=== PATIENT | female | born 1940 | race Caucasian/White ===

== ENCOUNTER 2018-06-23 08:49 | Inpatient (IN) | payer MEDICARE, SELFPAY ==
[2018-06-23] VITALS (24 sets, daily range): BP systolic 120–241; BP diastolic 72–102; PULSE 69–103; RESP 13–26; TEMP 36.4–37.6; O2SAT 92–98
--- NOTE | 2018-06-23 08:57 | NUR.NOTE ---
Nursing Note: Pt. is alert, speaks softy but appropriately. MD Maciel is at the bedside currently. Pt's daughters state she complained of epigastric pain the past couple of days.
--- NOTE | 2018-06-23 09:06 | W.ED.GENAD ---
Discharge Plan Disposition Patient Disposition: [facility] INPATIENT Condition: Improving Discharge Details Chief Complaint: GenMedical Clinical Impression: Porcelain gallbladder Reason For Visit: BENITO Primary Care Provider: None,None ED Provider: Ortiz Maciel Home Meds and New Rx's Prescriptions: No Action No Known Home Meds RF: 0 Medical Decision Making 78-year-old female presents from home with history of weeks of poor appetite and weight loss, now with nausea and vomiting over days time, increased weakness and probable near syncope last night with fall out of bed and found on floor by family this morning. No medical care for 40 yrs, since of last child. She arrives with a pulse of 102, afebrile, blood pressure 158/76. She is quite thin in appearance, her aorta is palpable and optically tender in her abdomen. Differential diagnosis includes occult cancer, bowel obstruction, gastroenteritis, ACS, dehydration or electrolyte abnormality. Must rule out aneurysmal aortic changes. Patient IV access established, given fluid bolus, antiemetic, referred for EKG, laboratory testing and CT images. She appears dehydrated with a BUN of 36, creatinine 2.1, lipase normal, LFTs abnormal with AST 67, ALT 124, total bilirubin 1.2, troponin 0.1 rechecked at approx 0.5 CT of the head does not reveal any acute findings. The abdomen reveals mild opacities in the lower lobes of the lungs which may represent atelectasis or pneumonia. There is gallstones in the gallbladder and gallbladder wall calcification. The descending colon and rectosigmoid bowel wall is thickened consistent with colitis. A limited abdominal ultrasound was obtained: This reveals a question of porcelain gallbladder and cholelithiasis. The patient states she does not want invasive procedures nor transfer including if she has a heart attack. Seen in the ER by Dr Damico and Dr De La Cruz, pt to be admitted to Dr De La Cruz for further management. Lab Data Lab results reviewed: Yes I reviewed the patient's lab results. Laboratory Results - last 24 hr 06/23/18 06/23/18 06/23/18 09:00 09:30 09:30 WBC 11.01 H RBC 5.77 H Hgb 16.2 H Hct 46.1 H MCV 79.9 L MCH 28.1 MCHC 35.1 RDW 14.9 H Plt Count 345 MPV 10.3 Immature Gran % 0.5 Neutrophils % 84.9 Lymphocytes % 6.4 Monocytes % 7.9 Eosinophils % 0.2 Basophils % 0.1 Absolute Neutrophils 9.35 H Absolute Lymphocytes 0.70 L Absolute Monocytes 0.87 H Absolute Eosinophils 0.02 Absolute Basophils 0.01 Sodium 134 L Potassium 3.4 L Chloride 95 L Carbon Dioxide 21.3 Anion Gap 17.7 H BUN 36 H Creatinine 2.12 H Estimated GFR/1.73 m2 22.53 Glucose 193 H Calcium 9.7 Magnesium 2.2 Total Bilirubin 1.2 H AST 67 H ALT 124 H Alkaline Phosphatase 197 H Creatine Kinase Troponin I 0.17 H Total Protein 8.7 H Albumin 4.0 Lipase 100 06/23/18 09:30 WBC RBC Hgb Hct MCV MCH MCHC RDW Plt Count MPV Immature Gran % Neutrophils % Lymphocytes % Monocytes % Eosinophils % Basophils % Absolute Neutrophils Absolute Lymphocytes Absolute Monocytes Absolute Eosinophils Absolute Basophils Sodium Potassium Chloride Carbon Dioxide Anion Gap BUN Creatinine Estimated GFR/1.73 m2 Glucose Calcium Magnesium Total Bilirubin AST ALT Alkaline Phosphatase Creatine Kinase 74 Troponin I Total Protein Albumin Lipase ECG Data Attestation: I personally reviewed and interpreted this ECG (s) as follows: Prior ECG tracings: not available for review Interpretation: Normal sinus rhythm with a rate of 99, the MD interval is 104, QRS is narrow but with probable LVH with repolarization changes primarily in the lateral leads, no ST segment elevation HPI General Mode of arrival: EMS. Date/Time Provider Initiated Documentation: 06/23/18 08:53. Limitations to Documentation: no limitations. Information obtained by: patient and family. History of Present Illness 78 year old F presents to the emergency department with the chief complaint of Abdominal pain and vomiting, described as moderate, Quality is described as dull and constant, Patient reports no radiation. Patient started experiencing this day(s) and it has been constant. No relieving factors improve symptom(s), Eating worsens symptoms . Patient notes loss of appetite, malaise, nausea/vomiting and weakness; denies headaches. Patient did receive the following treatments prior to arrival, none HPI Narrative: 70-year-old female, no medical care since the of her last child 40 years ago. States she has had 2 months of decreased appetite and a 10 pound weight loss. Now presents with 3 days of nausea, vomiting, generalized weakness. She rolled out of bed last night and was able to get off off the floor and was found by family. She denies striking her head and has not had a headache. She has persistent nonradiating epigastric pain and nausea. Her only regular medicine is frequent Aleve Related Data Home Medications Medication Instructions Recorded Confirmed Unknown [No Known Home Meds] 06/23/18 06/23/18 Allergies Allergy/AdvReac Type Severity Reaction Status Date / Time No Known Allergies Allergy Unverified 06/23/18 08:58 General Stated Complaint: GenMedical TAMMY: 3 Review of Systems Review of Systems 8 systems reviewed and otherwise negative. Patient reports diarrhea initially 3-4 days ago, no stool for 2 days [facility] Social History Smoking/Tobacco Use Status: Never Exam Narrative Exam Narrative: GEN: awake, alert, oriented 3. Pleasant, well groomed, interactive, thin. HEAD: Normocephalic, atraumatic ENT: Mucous membranes dry, oropharynx unremarkable, External ear exam unremarkable EYES: PERRL, EOMI NECK: Full ROM, no REBECCA, no menigismus CHEST/RESP: Nontender, clear to auscultation bilateral, no wheeze/rhonchi/rales CARDIOVASCULAR: RRR, no murmur, rub zoe. 2+ Rad pulse bilateral ABDOMEN: Soft, minimally tender in her epigastrium. The aorta is palpable. +Bowel sounds EXT: Full ROM, no edema, no rash Neuro: Grossly normal neurologic exam, conversant, interactive. Psych: Speech fluent, thoughts congruent, affect normal Course Vital Signs Temperature 36.4 C L 06/23/18 08:48 Pulse 102 H 06/23/18 08:48 Respiratory Rate 16 06/23/18 08:48 Blood Pressure 158/76 H 06/23/18 08:48 Pulse Oximetry 98 06/23/18 08:48 Temperature 36.4 C L 06/23/18 08:48 Temperature Source Temporal Artery Scan 06/23/18 08:48 Pulse 102 H 06/23/18 08:48 Respiratory Rate 16 06/23/18 08:48 Respiratory Effort 06/23/18 08:56 Blood Pressure 158/76 H 06/23/18 08:48 Pulse Oximetry 98 06/23/18 08:48 Oxygen Delivery Method Room Air 06/23/18 08:48 Oxygen Flow Rate 0 06/23/18 08:48 Pain Level 0 06/23/18 08:48
--- NOTE | 2018-06-23 09:10 | ED.GENADUL_ITS ---
Discharge Plan Disposition Patient Disposition: [facility] INPATIENT Condition: Improving Discharge Details Chief Complaint: GenMedical Clinical Impression: Porcelain gallbladder Reason For Visit: BENITO Primary Care Provider: None,None ED Provider: Ortiz Maciel Home Meds and New Rx's Prescriptions: No Action No Known Home Meds RF: 0 Medical Decision Making 78-year-old female presents from home with history of weeks of poor appetite and weight loss, now with nausea and vomiting over days time, increased weakness and probable near syncope last night with fall out of bed and found on floor by family this morning. No medical care for 40 yrs, since of last child. She arrives with a pulse of 102, afebrile, blood pressure 158/76. She is quite thin in appearance, her aorta is palpable and optically tender in her abdomen. Differential diagnosis includes occult cancer, bowel obstruction, gastroenteritis, ACS, dehydration or electrolyte abnormality. Must rule out aneurysmal aortic changes. Patient IV access established, given fluid bolus, antiemetic, referred for EKG, laboratory testing and CT images. She appears dehydrated with a BUN of 36, creatinine 2.1, lipase normal, LFTs abnormal with AST 67, ALT 124, total bilirubin 1.2, troponin 0.1 rechecked at approx 0.5 CT of the head does not reveal any acute findings. The abdomen reveals mild opacities in the lower lobes of the lungs which may represent atelectasis or pneumonia. There is gallstones in the gallbladder and gallbladder wall calcification. The descending colon and rectosigmoid bowel wall is thickened consistent with colitis. A limited abdominal ultrasound was obtained: This reveals a question of porcelain gallbladder and cholelithiasis. The patient states she does not want invasive procedures nor transfer including if she has a heart attack. Seen in the ER by Dr Damico and Dr De La Cruz, pt to be admitted to Dr De La Cruz for further management. Lab Data Lab results reviewed: Yes I reviewed the patient's lab results. Laboratory Results - last 24 hr 06/23/18 06/23/18 06/23/18 09:00 09:30 09:30 WBC 11.01 H RBC 5.77 H Hgb 16.2 H Hct 46.1 H MCV 79.9 L MCH 28.1 MCHC 35.1 RDW 14.9 H Plt Count 345 MPV 10.3 Immature Gran % 0.5 Neutrophils % 84.9 Lymphocytes % 6.4 Monocytes % 7.9 Eosinophils % 0.2 Basophils % 0.1 Absolute Neutrophils 9.35 H Absolute Lymphocytes 0.70 L Absolute Monocytes 0.87 H Absolute Eosinophils 0.02 Absolute Basophils 0.01 Sodium 134 L Potassium 3.4 L Chloride 95 L Carbon Dioxide 21.3 Anion Gap 17.7 H BUN 36 H Creatinine 2.12 H Estimated GFR/1.73 m2 22.53 Glucose 193 H Calcium 9.7 Magnesium 2.2 Total Bilirubin 1.2 H AST 67 H ALT 124 H Alkaline Phosphatase 197 H Creatine Kinase Troponin I 0.17 H Total Protein 8.7 H Albumin 4.0 Lipase 100 06/23/18 09:30 WBC RBC Hgb Hct MCV MCH MCHC RDW Plt Count MPV Immature Gran % Neutrophils % Lymphocytes % Monocytes % Eosinophils % Basophils % Absolute Neutrophils Absolute Lymphocytes Absolute Monocytes Absolute Eosinophils Absolute Basophils Sodium Potassium Chloride Carbon Dioxide Anion Gap BUN Creatinine Estimated GFR/1.73 m2 Glucose Calcium Magnesium Total Bilirubin AST ALT Alkaline Phosphatase Creatine Kinase 74 Troponin I Total Protein Albumin Lipase ECG Data Attestation: I personally reviewed and interpreted this ECG (s) as follows: Prior ECG tracings: not available for review Interpretation: Normal sinus rhythm with a rate of 99, the [place] interval is 104, QRS is narrow but with probable LVH with repolarization changes primarily in the lateral leads, no ST segment elevation HPI General Mode of arrival: EMS . Date/Time Provider Initiated Documentation: 06/23/18 08:53 . Limitations to Documentation: no limitations . Information obtained by: patient and family . History of Present Illness 78 year old F presents to the emergency department with the chief complaint of Abdominal pain and vomiting, described as moderate, Quality is described as dull and constant, Patient reports no radiation. Patient started experiencing this day(s) and it has been constant. No relieving factors improve symptom(s), Eating worsens symptoms . Patient notes loss of appetite, malaise, nausea/vomiting and weakness; denies headaches. Patient did receive the following treatments prior to arrival, none HPI Narrative: 70-year-old female, no medical care since the of her last child 40 years ago. States she has had 2 months of decreased appetite and a 10 pound weight loss. Now presents with 3 days of nausea, vomiting, generalized weakness. She rolled out of bed last night and was able to get off off the floor and was found by family. She denies striking her head and has not had a headache. She has persistent nonradiating epigastric pain and nausea. Her only regular medicine is frequent Aleve Related Data Home Medications Medication Instructions Recorded Confirmed Unknown [No Known Home Meds] 06/23/18 06/23/18 Allergies Allergy/AdvReac Type Severity Reaction Status Date / Time No Known Allergies Allergy Unverified 06/23/18 08:58 General Stated Complaint: GenMedical TAMMY: 3 Review of Systems Review of Systems 8 systems reviewed and otherwise negative. Patient reports diarrhea initially 3-4 days ago, no stool for 2 days [facility] Social History Smoking/Tobacco Use Status: Never Exam Narrative Exam Narrative: GEN: awake, alert, oriented 3. Pleasant, well groomed, interactive, thin. HEAD: Normocephalic, atraumatic ENT: Mucous membranes dry, oropharynx unremarkable, External ear exam unremarkable EYES: PERRL, EOMI NECK: Full ROM, no REBECCA, no menigismus CHEST/RESP: Nontender, clear to auscultation bilateral, no wheeze/rhonchi/rales CARDIOVASCULAR: RRR, no murmur, rub zoe. 2+ Rad pulse bilateral ABDOMEN: Soft, minimally tender in her epigastrium. The aorta is palpable. +Bowel sounds EXT: Full ROM, no edema, no rash Neuro: Grossly normal neurologic exam, conversant, interactive. Psych: Speech fluent, thoughts congruent, affect normal Course Vital Signs Temperature 36.4 C L 06/23/18 08:48 Pulse 102 H 06/23/18 08:48 Respiratory Rate 16 06/23/18 08:48 Blood Pressure 158/76 H 06/23/18 08:48 Pulse Oximetry 98 06/23/18 08:48 Temperature 36.4 C L 06/23/18 08:48 Temperature Source Temporal Artery Scan 06/23/18 08:48 Pulse 102 H 06/23/18 08:48 Respiratory Rate 16 06/23/18 08:48 Respiratory Effort 06/23/18 08:56 Blood Pressure 158/76 H 06/23/18 08:48 Pulse Oximetry 98 06/23/18 08:48 Oxygen Delivery Method Room Air 06/23/18 08:48 Oxygen Flow Rate 0 06/23/18 08:48 Pain Level 0 06/23/18 08:48
[2018-06-23] MEDS: Normal Saline 1,000 ML 125 ML IV ×2 (09:16→17:20)
[2018-06-23] MEDS: Ondansetron 4 MG/2 ML VIAL IVP (09:16)
[2018-06-23 09:49] LABS: Abs Immature Grans 0.05 k/cumm (0.0-0.09); Absolute Basophil Count 0.01 k/cumm (0.0-0.2); Absolute Eosinophil Count 0.02 k/cumm (0.0-0.7); Absolute Monocyte Count 0.87 k/cumm (0.11-0.7); Basophils % 0.1; Eosinophils % 0.2; HCT 46.1 % (36.0-46.0); HGB 16.2 g/dL (12.0-15.5); Immature Grans % 0.5; Lymphocytes % 6.4; Mean Corp. HGB Concentration 35.1 g/dL (32.0-36.0); Mean Corpuscular Hemoglobin 28.1 pg (27.0-33.0); Mean Corpuscular Volume 79.9 fL (80-95); Mean Platelet Volume 10.3 fL (8.0-11.0); Monocytes % 7.9; Neutrophils % 84.9; Platelet Count 345 x1000/uL (130-400); RBC 5.77 m/cumm (4.00-5.20); RBC Distribution Width 14.9 % (11.7-14.6); White Blood Cell Count 11.01 k/cumm (4.4-10.8)
[2018-06-23 09:51] LABS: Absolute Neutrophil Count 9.35 k/cumm (1.2-6.7)
[2018-06-23 10:03] LABS: Lipase 100 U/L (73-393); Magnesium 2.2 mg/dL (1.8-2.4)
[2018-06-23 10:15] LABS: Troponin I 0.17 ng/mL (0.00-0.06)
[2018-06-23 10:25] LABS: ALT 124 U/L (12-78); AST 67 U/L (15-37); Alkaline Phosphatase 197 U/L (46-116); Anion Gap 17.7 mmol/L (3-11); BUN 36 mg/dL (7-18); Bilirubin, Total 1.2 mg/dL (0.2-1.0); CO2 21.3 mmol/L (21.0-32.0); CREATININE 2.12 mg/dL (0.55-1.02); Calcium 9.7 mg/dL (8.5-10.1); Chloride 95 mmol/L (98-107); Estimated GFR 22.53 (mL/min/1.73m2); Glucose 193 mg/dL (70-100); Potassium 3.4 mmol/L (3.5-5.1); Sodium 134 mmol/L (136-145); Total Protein 8.7 g/dL (6.4-8.2)
[2018-06-23 10:26] LABS: Creatine Kinase 74 U/L (26-192)
--- NOTE | 2018-06-23 11:05 | DI.CT_ITS ---
SYMPTOMS/DIAGNOSIS: EPIGASTRIC PAIN, PALPABLE AORTA, VOMITING NONCONTRAST CT OF THE ABDOMEN AND PELVIS: A noncontrast exam was performed. Coronary artery calcification and aortic annular calcifications are seen. The is a small pericardial effusion and tiny bilateral pleural effusions. There is minimal basilar dependent changes. Stones are noted in the gallbladder. There is some peripheral calcification at the fundus of the gallbladder. No mass is visible. There is mild patient motion on the upper images of the abdomen. No gross liver lesions are identified. The spleen is normal in size. There is a small nodule in the left adrenal. There is motion in this area. The kidneys are unremarkable. No pancreatic mass or inflammation is visible. The bladder, uterus and ovaries are unremarkable. There is no bowel dilatation or inflammatory change. A nonobstructing stone is seen at the upper pole of the right kidney. The aorta shows calcification and is normal in diameter. Scoliosis and degenerative changes are noted in the spine. IMPRESSION: Cholelithiasis. Wall calcification at the fundus of the gallbladder. No evidence of biliary dilatation or acute cholecystitis.
--- NOTE | 2018-06-23 11:05 | DI.COMBO_ITS ---
SYMPTOM/DIAGNOSIS: GENERALIZED WEAKNESS, NAUSEA, WT LOSS, NEAR SYNCOPE, EPIGASTRIC PAIN, PALPABLE AORTA, VOMITING, F/U ABNL GB ON CT NONCONTRAST HEAD CT: No prior comparison exams are available. There is mild to moderate atrophy. There is patchy low density in the white matter consistent with chronic microvascular ischemia. No acute infarct, hemorrhage or mass is identified. There is no evidence of skull fracture. The sinuses and mastoid air cells appear clear where visualized. IMPRESSION: No acute abnormality.
--- NOTE | 2018-06-23 11:50 | DI.VRAD_ITS ---
EXAM: CT Abdomen and Pelvis Without Contrast EXAM DATE/TIME: 06/23/2018 10:58 AM CLINICAL HISTORY: 78 years old, female; Pain and signs and symptoms; Vomiting; Abdominal pain; Epigastric; Patient HX: Epigastric pain, palpable aorta, vomiting at home TECHNIQUE: Axial computed tomography images of the abdomen and pelvis without contrast. All CT scans at this facility use at least one of these dose optimization techniques: automated exposure control; mA and/or kV adjustment per patient size (includes targeted exams where dose is matched to clinical indication); or iterative reconstruction. Coronal and sagittal reformatted images were created and reviewed. COMPARISON: No relevant prior studies available. FINDINGS: Lower thorax: Coronary artery calcifications may indicate coronary artery disease. There is calcification of the aortic valve annulus. There is calcification of the mitral valve annulus. Small bilateral pleural effusions. Small pericardial effusion. Mild opacities in the lower lobes may represent atelectasis or pneumonia. ABDOMEN: Liver: Hepatomegaly 17 cm Gallbladder and bile ducts: Gallstones in the gallbladder. Gallbladder wall calcification may indicate gallbladder malignancy. Recommend further evaluation. Pancreas: Pancreatic atrophy Spleen: Normal. No splenomegaly. Adrenals: Left adrenal nodule 15 x 13 mm and 22 Hounsfield units level. Kidneys and ureters: Nonobstructing right renal calculus Stomach and bowel: Low-attenuation bowel wall thickening along the descending colon and rectosigmoid consistent with colitis. Differential diagnosis includes decompressed bowel. The cecum is on a long mesentery and sits in the posterior aspect of the pelvis Appendix: No evidence of appendicitis. PELVIS: Bladder: See Stomach And Bowel Finding. Reproductive: Unremarkable as visualized. ABDOMEN and PELVIS: Intraperitoneal space: Normal. No free air. No significant fluid collection. Bones/joints: Scoliosis Soft tissues: Unremarkable. Vasculature: No aortic aneurysm Lymph nodes: Normal. No enlarged lymph nodes. IMPRESSION: 1. Low-attenuation bowel wall thickening along the descending colon and rectosigmoid consistent with colitis. Differential diagnosis includes decompressed bowel. 2. Small bilateral pleural effusions. 3. Mild opacities in the lower lobes may represent atelectasis or pneumonia. 4. Gallstones in the gallbladder. Gallbladder wall calcification may indicate gallbladder malignancy. Recommend further evaluation. 5. Left adrenal nodule 15 x 13 mm and 22 Hounsfield units level. 6. No aortic aneurysm Dictated and Authenticated by: William Aguilera MD. Ordering:ALYSHA Alcantar MD
--- NOTE | 2018-06-23 11:52 | DI.VRAD_ITS ---
EXAM: CT Head Without Contrast EXAM DATE/TIME: 06/23/2018 11:05 AM CLINICAL HISTORY: 78 years old, female; Signs and symptoms; Other: General weakness, nausea; Patient HX: Gen weakness, nausea, weight loss, near syncope TECHNIQUE: Axial computed tomography images of the head/brain without contrast. All CT scans at this facility use at least one of these dose optimization techniques: automated exposure control; mA and/or kV adjustment per patient size (includes targeted exams where dose is matched to clinical indication); or iterative reconstruction. Coronal and sagittal reformatted images were created and reviewed. COMPARISON: No relevant prior studies available. FINDINGS: Brain: No acute intracranial hemorrhage. There is mild diffuse heterogeneity of the white matter attenuation, consistent with chronic white matter ischemic changes. Mild cerebral atrophy Ventricles: Normal. No ventriculomegaly. Bones/joints: Normal. No acute fracture. Sinuses: Normal as visualized. No acute sinusitis. Mastoid air cells: Normal as visualized. No mastoid effusion. Soft tissues: Normal. IMPRESSION: No acute intracranial hemorrhage. Dictated and Authenticated by: William Aguilera MD. Ordering:ALYSHA Alcantar MD
--- NOTE | 2018-06-23 11:53 | DI.US_ITS ---
SYMPTOMS/DIAGNOSIS: SEAMUS GB ON CT, WT LOSS RIGHT UPPER QUADRANT ULTRASOUND: Mobile stones are noted in the gallbladder. There is calcification faintly visualized in the fundus of the gallbladder as well as a question of adenomyomatosis. No mass is visible. There is dilatation of the common bile duct. Three stones are noted in the common bile duct. The duct is dilated to 11 mm. No intrahepatic biliary dilatation is seen. There is no pericholecystic fluid. The pancreas is obscured by bowel gas. IMPRESSION: Cholelithiasis. Three stones are noted in the common bile duct causing mild dilatation.
[2018-06-23 12:12] LABS: Troponin I 0.54 ng/mL (0.00-0.06)
--- NOTE | 2018-06-23 13:22 | DI.VRAD_ITS ---
Addendum created by William Aguilera MD on 06/23/2018 1:30:44 PM EST THIS REPORT CONTAINS FINDINGS THAT MAY BE CRITICAL TO PATIENT CARE. The findings were verbally communicated via telephone conference with ASHLEY MONAE at 1:30 PM EST on 06/23/2018. The findings were acknowledged and understood. Initial report created on 06/23/2018 1:22:05 PM EST EXAM: US Abdomen Limited, Right Upper Quadrant EXAM DATE/TIME: 06/23/2018 11:55 AM CLINICAL HISTORY: 78 years old, female; Signs and symptoms; Other: Ruq pain; Abnormal gb on CT; 10 lb weight loss in 1 month TECHNIQUE: Real-time ultrasound of the abdomen with image documentation. Examination was focused on the right upper quadrant. COMPARISON: CT Private^ROUTINE ABDOMEN PELVIS WITHOUT (Adult) 06/23/2018 10:53 AM FINDINGS: Liver: No mass identified Gallbladder: Mobile gallstones in the gallbladder. Gallbladder wall 2 mm Calcification in the wall of the gallbladder as demonstrated on CT. Rule out gallbladder carcinoma. Common bile duct: Choledocholithiasis: 3 gallstones in the common bile duct. Largest 6 mm. Common hepatic duct measures 10.6 mm. Common bile duct measures 5 mm. Pancreas: The pancreas is poorly-visualized due to overlying bowel gas. Right kidney: Normal. No mass. No hydronephrosis. IMPRESSION: 1. Choledocholithiasis: 3 gallstones in the common bile duct. Largest 6 mm. Common hepatic duct measures 10.6 mm. 2. Mobile gallstones in the gallbladder. 3. Calcification in the wall of the gallbladder as demonstrated on CT. Rule out gallbladder carcinoma. Dictated and Authenticated by: William Aguilera MD. Ordering:ALYSHA Alcantar MD
[2018-06-23 13:29] LABS: Bilirubin Negative (Negative); Blood Trace-lysed (Negative); Clarity Clear; Glucose 250 mg/dL (Negative); Ketones Negative (Negative); Leukocyte Esterase Negative (Negative); Nitrite Negative (Negative); Specific Gravity 1.025 (1.005-1.025)
[2018-06-23 13:42] LABS: Bacteria Rare HPF (Negative); C & S Indicated? No; Casts Negative LPF (Negative); Crystals Negative HPF (Negative); Epithelial Cells Negative HPF (Negative); Mucus Negative (Negative); Other Cells Negative (Negative); RBC 0-2 (0-2); WBC 0-2 HPF (0-5)
[2018-06-23] MEDS: ACETAMINOPHEN 1,000 MG/100 ML BTL 400 MG IVPB ×2 (16:01→21:33)
--- NOTE | 2018-06-23 16:15 | HPE_ITS ---
Date of service: 06/23/18 Time of Service: 16:11 Assessment and Plan (1) Right upper quadrant abdominal pain of unknown etiology: Current visit: Yes Status: Acute Repeat labs in am, cholecystectomy, for chronic cholecystitis, once cardiac cleared (2) Elevated troponin: Current visit: Yes Status: Acute Trending Troponin's, echo tomorrow. (3) STANLEY (acute kidney injury): Current visit: Yes Status: Acute Rehydrate, recheck labs, (4) Hyperglycemia: Current visit: Yes Status: Acute Start insulin therapy if glucose remains elevated. (5) Choledocholithiasis: Current visit: Yes Status: Acute Started Zosyn for cholangitis prophylaxis, MRCP tomorrow, talk with GI in regards to timing ERCP History of Present Illness Chief Complaint: Right upper Quadrant abdominal pain Narrative: 78-year-old female presenting to the emergency room with right upper quadrant pain, with associated nausea, vomiting, and weakness. Her current episode of symptoms started Friday, but she has had similar symptoms for the past 8 weeks starting around 23 April. Her symptoms in April with right upper quadrant pain with malaise, nausea, vomiting, and diarrhea. The diarrhea is reported as a loose foul-smelling stools. She woke up this morning and could not get out of bed due to weakness. An ambulance was called, and she transported to the ER. Work-up in the ER demonstrated an slightly elevated troponin, acute kidney injury, cholelithiasis with choledocholithiasis. Review of Systems Constitutional Reports anorexia, Denies chills, Denies difficulty sleeping, Denies fever(s), Reports malaise, Reports weakness and Reports weight loss Eyes Denies blurry vision, Denies diplopia and Denies loss of vision ENT Denies dysphagia, Denies vertigo, Denies dizziness, Denies hearing loss, Denies hoarseness, Denies epistaxis, Denies tinnitus and Denies sore throat Cardiovascular Denies chest pain with activity, Denies syncope, Denies edema, Denies irregular heart rhythm, Denies leg edema and Denies dyspnea on exertion Respiratory Denies cough, Reports pain on inspiration, Denies dyspnea on exertion, Denies stridor and Denies wheezing Gastrointestinal Denies melena, Denies bloating, Denies hematochezia, Denies dysphagia, Denies early satiety, Denies dyspepsia, Denies heartburn, Reports loose stools, Reports nausea and Reports vomiting Genitourinary Denies urinary frequency, Denies urinary incontinence and Denies urinary hesitancy Musculoskeletal Denies back pain, Denies myalgias, Denies arthralgias and Denies joint swelling Integumentary/Breasts Denies pruritus, Denies unusual bruising and Denies jaundice Neurologic Denies confusion, Denies vertigo, Denies dizziness, Denies syncope, Denies loss of vision and Reports weakness Psychiatric Denies anxiety, Denies confusion, Denies difficulty concentrating, Denies irritability, Denies mood swings and Denies panic attacks Hematologic/Lymphatic Denies easy bleeding and Denies easy bruising Allergic/Immunologic Denies wheezing PFSH Surgical History History of bilateral tubal ligation (Acute) Social History caregiver/support person: Yes (Family checks in regularly) housing: house number of children: 6 Smoking/Tobacco Use Status: Never alcohol intake: never substance use type: does not use History History 6 Para 6 Hx # Term Pregnancies Multiple births Hx # Pregnancies Ectopic pregnancies AB induced Hx Number of Living Children 6 AB spontaneous Meds Home Medications Medication Instructions Recorded Confirmed Type Unknown [No Known Home Meds] 06/23/18 06/23/18 History Allergies Allergy/AdvReac Type Severity Reaction Status Date / Time No Known Allergies Allergy Unverified 06/23/18 08:58 Exam Const General: cooperative, no acute distress, well groomed and frail appearing Nutritional Appearance: average body habitus and thin Orientation: alert, awake and oriented x3 HENMT Head: normal to inspection, atraumatic and abrasion Ears: hearing grossly normal bilaterally General nose exam: external nose normal Face and sinus: normal facial exam Mouth: oral mucosa abnormal (dry,vazquez) Teeth and gingiva: edentulous Throat: posterior oropharynx normal Eyes General: appearance normal, both eyes and all related structures Periorbital: periorbital findings normal Eyelids: eyelids normal Conjunctivae: conjunctivae normal Sclera: sclerae normal Pupils: PERRL EOM: EOM intact bilaterally Neck Neck: normal visual inspection, full ROM, trachea midline and supple Chest Chest: normal inspection of the chest Resp Effort & Inspection: normal respiratory effort, able to speak in complete sentences and not labored Auscultation: clear to auscultation bilaterally Cardio Jugular venous pressure: no JVD Rate: regular rate Rhythm: regular rhythm Heart Sounds: S1 normal and S2 normal GI Inspection: non-distended Palpation: soft, no hernias and tender in the RUQ and Elaine's sign positive (positive) Rectal Exam - female: deferred Abdomen image: 1. Pain Skin General skin exam: no rashes or lesions noted Hair: general thinning Neuro General: moves all extremities, no focal motor deficits and CN's II-XI intact bilaterally Extrem General: full ROM and normal capillary refill Psych Appearance: grossly normal Thought Content: normal Judgment: judgment good Results Imaging Abdomen CT scan report/results: image reviewed CT scan - pelvis: image reviewed US - pelvic: image reviewed Imaging Studies: EXAM: CT Abdomen and Pelvis Without Contrast EXAM DATE/TIME: 06/23/2018 10:58 AM CLINICAL HISTORY: 78 years old, female; Pain and signs and symptoms; Vomiting; Abdominal pain; Epigastric; Patient HX: Epigastric pain, palpable aorta, vomiting at home TECHNIQUE: Axial computed tomography images of the abdomen and pelvis without contrast. All CT scans at this facility use at least one of these dose optimization techniques: automated exposure control; mA and/or kV adjustment per patient size (includes targeted exams where dose is matched to clinical indication); or iterative reconstruction. Coronal and sagittal reformatted images were created and reviewed. COMPARISON: No relevant prior studies available. FINDINGS: Lower thorax: Coronary artery calcifications may indicate coronary artery disease. There is calcification of the aortic valve annulus. There is calcification of the mitral valve annulus. Small bilateral pleural effusions. Small pericardial effusion. Mild opacities in the lower lobes may represent atelectasis or pneumonia. ABDOMEN: Liver: Hepatomegaly 17 cm Gallbladder and bile ducts: Gallstones in the gallbladder. Gallbladder wall calcification may indicate gallbladder malignancy. Recommend further evaluation. Pancreas: Pancreatic atrophy Spleen: Normal. No splenomegaly. Adrenals: Left adrenal nodule 15 x 13 mm and 22 Hounsfield units level. Kidneys and ureters: Nonobstructing right renal calculus Stomach and bowel: Low-attenuation bowel wall thickening along the descending colon and rectosigmoid consistent with colitis. Differential diagnosis includes decompressed bowel. The cecum is on a long mesentery and sits in the posterior aspect of the pelvis Appendix: No evidence of appendicitis. PELVIS: Bladder: See Stomach And Bowel Finding. Reproductive: Unremarkable as visualized. ABDOMEN and PELVIS: Intraperitoneal space: Normal. No free air. No significant fluid collection. Bones/joints: Scoliosis Soft tissues: Unremarkable. Vasculature: No aortic aneurysm Lymph nodes: Normal. No enlarged lymph nodes. IMPRESSION: 1. Low-attenuation bowel wall thickening along the descending colon and rectosigmoid consistent with colitis. Differential diagnosis includes decompressed bowel. 2. Small bilateral pleural effusions. 3. Mild opacities in the lower lobes may represent atelectasis or pneumonia. 4. Gallstones in the gallbladder. Gallbladder wall calcification may indicate gallbladder malignancy. Recommend further evaluation. 5. Left adrenal nodule 15 x 13 mm and 22 Hounsfield units level. 6. No aortic aneurysm EXAM: US Abdomen Limited, Right Upper Quadrant EXAM DATE/TIME: 06/23/2018 11:55 AM CLINICAL HISTORY: 78 years old, female; Signs and symptoms; Other: Ruq pain; Abnormal gb on CT; 10 lb weight loss in 1 month TECHNIQUE: Real-time ultrasound of the abdomen with image documentation. Examination was focused on the right upper quadrant. COMPARISON: CT Private^ROUTINE ABDOMEN PELVIS WITHOUT (Adult) 06/23/2018 10:53 AM FINDINGS: Liver: No mass identified Gallbladder: Mobile gallstones in the gallbladder. Gallbladder wall 2 mm Calcification in the wall of the gallbladder as demonstrated on CT. Rule out gallbladder carcinoma. Common bile duct: Choledocholithiasis: 3 gallstones in the common bile duct. Largest 6 mm. Common hepatic duct measures 10.6 mm. Common bile duct measures 5 mm. Pancreas: The pancreas is poorly-visualized due to overlying bowel gas. Right kidney: Normal. No mass. No hydronephrosis. IMPRESSION: 1. Choledocholithiasis: 3 gallstones in the common bile duct. Largest 6 mm. Common hepatic duct measures 10.6 mm. 2. Mobile gallstones in the gallbladder. 3. Calcification in the wall of the gallbladder as demonstrated on CT. Rule out gallbladder carcinoma. Labs : 06/23/18 09:30 06/23/18 09:30 Laboratory Results - last 24 hr 06/23/18 06/23/18 06/23/18 09:00 09:30 09:30 WBC 11.01 H RBC 5.77 H Hgb 16.2 H Hct 46.1 H MCV 79.9 L MCH 28.1 MCHC 35.1 RDW 14.9 H Plt Count 345 MPV 10.3 Immature Gran % 0.5 Neutrophils % 84.9 Lymphocytes % 6.4 Monocytes % 7.9 Eosinophils % 0.2 Basophils % 0.1 Absolute Neutrophils 9.35 H Absolute Lymphocytes 0.70 L Absolute Monocytes 0.87 H Absolute Eosinophils 0.02 Absolute Basophils 0.01 Sodium 134 L Potassium 3.4 L Chloride 95 L Carbon Dioxide 21.3 Anion Gap 17.7 H BUN 36 H Creatinine 2.12 H Estimated GFR/1.73 m2 22.53 Glucose 193 H Calcium 9.7 Magnesium 2.2 Total Bilirubin 1.2 H AST 67 H ALT 124 H Alkaline Phosphatase 197 H Creatine Kinase Troponin I 0.17 H Total Protein 8.7 H Albumin 4.0 Lipase 100 Urine Color Urine Clarity Urine pH Ur Specific [place] Urine Protein Urine Ketones Urine Blood Urine Nitrite Urine Bilirubin Urine Urobilinogen Ur Leukocyte Esterase Urine RBC Urine WBC Ur Epithelial Cells Urine Crystals Urine Bacteria Urine Casts Urine Mucus Urine Other Ur Culture Indicated? Urine Glucose 06/23/18 06/23/18 06/23/18 09:30 11:40 13:18 WBC RBC Hgb Hct MCV MCH MCHC RDW Plt Count MPV Immature Gran % Neutrophils % Lymphocytes % Monocytes % Eosinophils % Basophils % Absolute Neutrophils Absolute Lymphocytes Absolute Monocytes Absolute Eosinophils Absolute Basophils Sodium Potassium Chloride Carbon Dioxide Anion Gap BUN Creatinine Estimated GFR/1.73 m2 Glucose Calcium Magnesium Total Bilirubin AST ALT Alkaline Phosphatase Creatine Kinase 74 Troponin I 0.54 H Total Protein Albumin Lipase Urine Color Yellow Urine Clarity Clear Urine pH 7.0 Ur Specific [place] 1.025 Urine Protein >=300 H Urine Ketones Negative Urine Blood Trace-lysed H Urine Nitrite Negative Urine Bilirubin Negative Urine Urobilinogen 1.0 H Ur Leukocyte Esterase Negative Urine RBC 0-2 Urine WBC 0-2 Ur Epithelial Cells Negative Urine Crystals Negative Urine Bacteria Rare Urine Casts Negative Urine Mucus Negative Urine Other Negative Ur Culture Indicated? No Urine Glucose 250 H Last Vital Signs Temp 37.6 C H 06/23/18 15:15 Pulse 69 06/23/18 15:15 Resp 18 06/23/18 15:15 BP 160/84 H 06/23/18 15:15 Pulse Ox 95 06/23/18 15:15
[2018-06-23] MEDS: PIPERACILLIN/TAZO 2.25 GM in Normal Saline 50 ML IVPB ×2 (17:13→21:58)
[2018-06-23 17:26] LABS: Troponin I 0.92 ng/mL (0.00-0.06)
[2018-06-23 18:39] LABS: PTT Activated 23.4 sec (21.0-31.4)
[2018-06-23 21:21] LABS: Troponin I 0.84 ng/mL (0.00-0.06)
[2018-06-23] MEDS: hydrALAZINE 10 MG TAB PO (22:33)
[2018-06-23] MEDS: Labetalol 100 MG TAB PO (22:33)
[2018-06-24] VITALS (13 sets, daily range): BP systolic 133–230; BP diastolic 64–91; PULSE 58–104; RESP 16–19; TEMP 36.4–37.1; O2SAT 96–98
[2018-06-24] MEDS: Normal Saline 1,000 ML 125 ML IV ×2 (01:12→19:29)
[2018-06-24] MEDS: ACETAMINOPHEN 1,000 MG/100 ML BTL 400 MG IVPB ×4 (03:59→21:54)
[2018-06-24] MEDS: PIPERACILLIN/TAZO 2.25 GM in Normal Saline 50 ML IVPB ×4 (04:24→22:23)
[2018-06-24] MEDS: hydrALAZINE 25 MG TAB 10 MG PO (05:14)
[2018-06-24 07:14] LABS: Abs Immature Grans 0.03 k/cumm (0.0-0.09); Absolute Basophil Count 0.01 k/cumm (0.0-0.2); Absolute Eosinophil Count 0.01 k/cumm (0.0-0.7); Absolute Lymphocyte Count 0.97 k/cumm (1.2-3.4); Absolute Monocyte Count 0.75 k/cumm (0.11-0.7); Absolute Neutrophil Count 9.02 k/cumm (1.2-6.7); Basophils % 0.1; Eosinophils % 0.1; HCT 37.7 % (36.0-46.0); HGB 13.2 g/dL (12.0-15.5); Immature Grans % 0.3; Mean Corpuscular Hemoglobin 28.4 pg (27.0-33.0); Mean Corpuscular Volume 81.3 fL (80-95); Mean Platelet Volume 10.3 fL (8.0-11.0); Neutrophils % 83.5; Platelet Count 281 x1000/uL (130-400); RBC 4.64 m/cumm (4.00-5.20); RBC Distribution Width 14.9 % (11.7-14.6); White Blood Cell Count 10.79 k/cumm (4.4-10.8)
[2018-06-24 07:30] LABS: ALT 87 U/L (12-78); AST 61 U/L (15-37); Alkaline Phosphatase 137 U/L (46-116); Anion Gap 13.8 mmol/L (3-11); BUN 31 mg/dL (7-18); CO2 22.2 mmol/L (21.0-32.0); CREATININE 1.54 mg/dL (0.55-1.02); Calcium 8.1 mg/dL (8.5-10.1); Chloride 98 mmol/L (98-107); Estimated GFR 32.58 (mL/min/1.73m2); Glucose 135 mg/dL (70-100); Sodium 134 mmol/L (136-145); Total Protein 6.4 g/dL (6.4-8.2)
[2018-06-24 07:35] LABS: PTT Activated 45.7 sec (21.0-31.4)
[2018-06-24 07:37] LABS: Potassium 2.9 mmol/L (3.5-5.1)
[2018-06-24 07:39] LABS: Magnesium 1.9 mg/dL (1.8-2.4)
[2018-06-24 07:41] LABS: Troponin I 0.47 ng/mL (0.00-0.06)
[2018-06-24 08:10] LABS: Hemoglobin A1C 6.4 % (4.5-6.2)
[2018-06-24] MEDS: Normal Saline Flush 10 ML SYR IVP ×3 (08:18→21:54)
[2018-06-24] MEDS: POTASSIUM CHLORIDE 10 MEQ/100 ML BAG 50 MEQ IVPB ×4 (08:25→23:25)
--- NOTE | 2018-06-24 09:00 | MERGE_ITS ---
*[facility]* *[facility]* [address] [place] [address] Date of study: 06/24/2018 Transthoracic Echocardiography M-mode, complete 2D, complete spectral Doppler, and color Doppler *STUDY CONCLUSIONS* Summary: 1. Left ventricle: The cavity size was below normal. Wall thickness was increased in a pattern of mild LVH. Systolic function was hyperdynamic. The estimated ejection fraction was 65-70%. There was no significant dynamic obstruction at rest. Patient was unable to perform Valsalva to further assess obstruction. Wall motion was normal; there were no regional wall motion abnormalities. Findings consistent with diastolic dysfunction. 2. Left atrium: The atrium was mildly dilated. 3. Right ventricle: The cavity size was normal. Wall thickness was normal. Systolic function was normal. 4. Pulmonary arteries: Pulmonary systolic pressure was mildly increased, in the range of 35mm Hg to 40mm Hg. 5. Inferior vena cava: The vessel was patent and small, appearing collapsed. *PATIENT PRESENTATION* Height: 147.3cm ((58in) ) S/D Pressure: 191 / 80 Weight: 45.8kg ((100.8lb) ) BSA: 1.37m^2 Test start time: 09:10 AM. Test stop time: 10:10 AM. PERFORMING Nv ORDERING Isma De La Cruz REFERRING Isma De La Cruz CONSULTING None, None PATTERN LEASE INSPECTOR RT Nathaniel (R)(CT), RUST REFERRING Do Dorothy Liz *PROCEDURE DATA* Procedure information: The patient was identified by two identifiers. This study was interpreted by [facility]. Pertinent images and digital data are archived for permanent storage and are available for subsequent review. No prior study was available for comparison. Study status: Routine. Transthoracic echocardiography. M-mode, complete 2D, complete spectral Doppler, and color Doppler. A Transthoracic Echocardiogram was performed. Scanning was performed from the parasternal, apical, subcostal, and suprasternal notch acoustic windows. Images were obtained using an [id number] cardiac ultrasound machine. Image quality was adequate. Study completion: The patient tolerated the procedure well. There were no complications. History: PMH: Elevated troponin. *CARDIAC ANATOMY* Left ventricle: The cavity size was below normal. Wall thickness was increased in a pattern of mild LVH. Systolic function was hyperdynamic. The estimated ejection fraction was 65-70%. There was no significant dynamic obstruction at rest. Patient was unable to perform Valsalva to assess further assess obstruction. Wall motion was normal; there were no regional wall motion abnormalities. Findings consistent with diastolic dysfunction. Aortic valve: Trileaflet; mildly thickened, mildly calcified leaflets. Mobility was not restricted. Doppler: Transvalvular velocity was within the normal range. There was no stenosis. There was no significant regurgitation. VTI ratio of LVOT to aortic valve: 0.79. Valve area (VTI): 2cm^2. Indexed valve area (VTI): 1.4cm^2/m^2. Peak velocity ratio of LVOT to aortic valve: 0.55. Valve area (Vmax): 1.4cm^2. Indexed valve area (Vmax): 1cm^2/m^2. Mean velocity ratio of LVOT to aortic valve: 0.71. Valve area (Vmean): 1.8cm^2. Indexed valve area (Vmean): 1.3cm^2/m^2. Mean gradient (S): 10.1mm Hg. Peak gradient (S): 21.1mm Hg. Aorta: Aortic root: The aortic root was normal in size. Ascending aorta: The ascending aorta was normal in size. Mitral valve: Moderately calcified annulus. Mobility was not restricted. Doppler: Transvalvular velocity was within the normal range. There was no evidence for stenosis. There was no significant regurgitation. Valve area by pressure half-time: 2.2cm^2. Indexed valve area by pressure half-time: 1.6cm^2/m^2. Peak gradient (D): 4.2mm Hg. Left atrium: The atrium was mildly dilated. Right ventricle: The cavity size was normal. Wall thickness was normal. Systolic function was normal. Pulmonic valve: Structurally normal valve. Doppler: Transvalvular velocity was within the normal range. There was no evidence for stenosis. There was trivial regurgitation. Peak gradient (S): 5.4mm Hg. Tricuspid valve: Structurally normal valve. Doppler: Transvalvular velocity was within the normal range. There was no evidence for stenosis. There was mild regurgitation. Pulmonary artery: Pulmonary systolic pressure was mildly increased, in the range of 35mm Hg to 40mm Hg. Right atrium: The atrium was normal in size. Pericardium: There was no pericardial effusion. Systemic veins: Inferior vena cava: Well visualized. The vessel was patent and small, appearing collapsed. The respirophasic diameter changes were in the normal range (greater than or equal to 50%). Baseline ECG: Bradycardia. Measurements Left ventricle Value Reference LV ID, ED, PLAX 3.7 cm 3.5 - 6.0 LV ID, ES, PLAX 2.2 cm 2.1 - 4.0 LV PW thickness, ED, PLAX 1.1 cm LV end-diastolic volume, 1-p A2C 58 ml LV ejection fraction, 1-p A2C 75 % LV end-diastolic volume, 1-p A4C 40 ml LV ejection fraction, 1-p A4C 66 % LV e', lateral 0.038 m/sec LV E/e', lateral 27 LV e', medial 0.037 m/sec LV E/e', medial 28 LV e', average 0.037 m/sec LV E/e', average 28 Ventricular septum Value Reference IVS thickness, ED, PLAX 1.2 cm LVOT Value Reference LVOT ID, A-P 1.8 cm LVOT area 2.5 cm^2 LVOT peak velocity, S 1.27 m/sec LVOT mean velocity, S 1.04 m/sec LVOT VTI, S 33.0 cm LVOT peak gradient, S 6.5 mm Hg LVOT mean gradient, S 4.7 mm Hg Stroke volume (SV), LVOT DP 83 ml Stroke index (SV/bsa), LVOT DP 61 ml/m^2 Aortic valve Value Reference Aortic valve peak velocity, S 2.3 m/sec Aortic valve mean velocity, S 1.48 m/sec Aortic valve VTI, S 42.0 cm Aortic mean gradient, S 10.1 mm Hg Aortic peak gradient, S 21.1 mm Hg VTI ratio, LVOT/AV 0.79 Aortic valve area, VTI 2 cm^2 Velocity ratio, peak, LVOT/AV 0.55 Aortic valve area, peak velocity 1.4 cm^2 Velocity ratio, mean, LVOT/AV 0.71 Aortic valve area, mean velocity 1.8 cm^2 Aortic valve area/bsa, mean velocity 1.3 cm^2/m^2 Aorta Value Reference Aortic root ID, ED 2.6 cm Ascending aorta ID, A-P, S 3.5 cm Left atrium Value Reference LA ID, A-P, ES 2.9 cm LA ID/bsa, A-P 2.1 cm/m^2 <=2.2 LA area, ES, A4C 15.8 cm^2 8.8 - 23.4 LA area, ES, A2C 14 cm^2 LA volume/bsa, ES, 1-p A4C 35 ml/m^2 LA volume, ES, 2-p 36 ml LA volume/bsa, ES, 2-p 26 ml/m^2 LA/aortic root ratio 1.12 Mitral valve Value Reference Mitral E-wave peak velocity 1.02 m/sec Mitral A-wave peak velocity 1.6 m/sec Mitral deceleration time (H) 352 ms 150 - 230 Mitral pressure half-time 102 ms Mitral peak gradient, D 4.2 mm Hg Mitral E/A ratio, peak 0.64 Mitral valve area, PHT, DP 2.2 cm^2 Pulmonary veins Value Reference Pulmonary vein peak velocity, S 0.85 m/sec Pulmonary vein peak velocity, D 0.37 m/sec Pulmonary vein velocity ratio, peak, 2.28 S/D Pulmonary vein A-wave reversal peak 0.42 m/sec velocity Tricuspid valve Value Reference Tricuspid regurg peak velocity 3.2 m/sec Tricuspid peak RV-RA gradient 41.2 mm Hg Right atrium Value Reference RA area, ES, A4C 14.6 cm^2 8.3 - 19.5 Pulmonic valve Value Reference Pulmonic peak gradient, S 5.4 mm Hg Legend: (L) and (H) alejandra values outside specified reference range. I have personally reviewed the images and have reviewed and edited the reported findings. Electronically signed by Wayne Sheth 06/24/2018 11:10
--- NOTE | 2018-06-24 09:42 | PDOC.CMIN ---
Care Management Initial Assess REASON FOR HOSPITALIZATION:: Porcelain Gallbladder PAST MEDICAL HISTORY/PAST SURGICAL HISTORY:: Bilat tubal ligation PREVIOUS FUNCTIONAL STATUS/SOCIAL/FAMILY SUPPORTS:: Sharda resides alone in [place], [place]. 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 She has six children, all local except a daughter who resides in [place]. She has fifteen grandchildren; a healthy supportive family is reported. She has not been to the doctor since birthing her last child 47 years ago. She was previously independent in the community and was providing childcare to her great grandchildren until a few weeks ago. She was previously independent with all ADLs in the community and will be evaluated for further needs prior to discharge. CURRENT FUNCTIONAL STATUS:: Sharda was lying in bed with her eyes closed. Her daughter and grand-daughter were at her bedside. ADVANCE DIRECTIVES:: On file at [facility]; daughters Jennifer and Sasha as agents. Has patient been provided with information about the portal?: Yes Did the patient sign up for the portal?: No CODE STATUS:: DNR/DNI INSURANCE COVERAGE / FINANCIAL ISSUES:: CM spoke with Aaron at [employer] who recommended contacting Ronak Ruth at [facility]; CM left with demographics for Sharda and George and requested [facility] Coverage information. CURRENT HOME/COMMUNITY SERVICES/EQUIPMENT:: No current services or equipment. PRIMARY CARE PHYSICIAN:: No local; CM will attempt PCP attachment prior to Sharda's discharge for follow up. POTENTIAL DISCHARGE NEEDS:: PCP assignment, evaluation for further needs, possible PC consult (dependent on care needs). PATIENT/FAMILY EDUCATION NEEDS:: Review discharge instructions, discuss Ask Me Three. ANTICIPATED BARRIERS TO DISCHARGE:: None identified at this time. TRANSPORTATION:: Via private vehicle with family. PLAN:: Sharda will continue to be worked up and her pain managed. MD reports possible down and back to [facility] for drain and ERCP and anticipates Sharda will be here for at least a few more days. CM will continue to have discharge planning considerations including increased services at home if appropriate per MD-to include Palliative Care.
--- NOTE | 2018-06-24 11:43 | CCONE_ITS ---
Date of service: 06/24/18 Time of Service: 11:36 Assessment and Plan (1) Elevated troponin: Start date: 06/23/18 Current visit: Yes Status: Acute Troponin elevation in the setting of acute cholecystitis and acute kidney injury, accelerated hypertension, and hyperdynamic LV. Doubt that the troponin elevation is due to acute plaque rupture. EKG without acute ischemic changes. No regional wall motion abnormalities on echocardiogram, preserved LVEF. No symptoms suggestive of angina. It would not be unreasonable to pursue nuclear stress testing prior to surgery for risk stratification. However, an abnormal stress test in absence of anginal symptoms would only require further investigation, i.e. cardiac catheterization, if high risk, i.e. large ischemia. At this point maintaining adequate hydration to avoid syncope due to hyperdynamic outflow obstruction is most important. If one wanted to pursue stress testing she should complete 48 hours of heparin, otherwise it can be stopped. Given bradycardia avoid AV jolie blocking agents. Agree with as needed hydralazine. If persistent hypertension with blood pressure greater than 140/90 one can consider adding losartan once renal function has normalized and is stable or amlodipine. History of Present Illness Chief Complaint: Elevated Troponin Narrative: Independent 78-year-old woman with no past medical history. Patient is currently admitted because of cholecystitis complicated by acute kidney injury. Troponin peaked at 0.92, EKG did not show acute ischemic changes or old MS. Echocardiogram showed a small, hyperdynamic LV with mild outflow obstruction. RV size and function were normal and there was no HEENT hemodynamically significant valvular heart disease. Patient is a poor historian. History was in part obtained by family members. She has history of orthostatic lightheadedness and near syncope complicated by frequent falls. Symptoms improve with high sodium intake. At the day of admission she was found down, but not unconscious. Generally, her p.o. intake is poor, more so over the last few days. She denies shortness of breath, chest pain, palpitations, bleeding, claudicat ion, focal deficits or symptoms. She reports abdominal pain. ROS: 10 point ROS was performed; all pertinent positives as mentioned in HPI, all others negative. Allergies reviewed. No known drug allergies. Medications reviewed. Hydralazine 10 mg as needed and heparin drip. PFSH reviewed; pertinent history as mentioned in HPI. Social history: Non-smoker. No alcohol. Family history: Father with MS in his 60s. PHYSICAL EXAM General: Ill but in no acute distress HEENT: Anicteric, mucus membranes moist Neck: Supple, normal JVP, brisk carotid upstrokes, no bruits Chest: Non-tender Lungs: Clear to auscultation on anterior exam, no crackles or wheezes Cardiac: Regular rate, regular rhythm, normal S1S2, no murmurs Abdomen: Soft, tender, bowel sounds present Extremities: No clubbing, cyanosis or edema, equal pulses in all 4 extremities Skin: Warm and dry, no rashes Neuro: Alert and oriented x3, grossly intact DATA Admission EKG and laboratory studies reviewed. Today's echocardiogram reviewed and interpreted to show mild LVH, cavity size below normal limits EF 65-70%, no significant dynamic obstruction at rest, patient was unable to perform Valsalva to further assess obstruction, diastolic dysfunction, mild left atrial enlargement, normal RV size and function, mildly elevated pulmonary pressures in the range of 35-40 mmHg. Consults Consult date: 06/24/18 Requesting physician: Isma De La Cruz [facility] Surgical History History of bilateral tubal ligation (Acute) Social History caregiver/support person: Yes (Family checks in regularly) housing: house number of children: 6 Smoking/Tobacco Use Status: Never alcohol intake: never substance use type: does not use History History 6 Para 6 Hx # Term Pregnancies Multiple births Hx # Pregnancies Ectopic pregnancies AB induced Hx Number of Living Children 6 AB spontaneous Results Last Vital Signs Temp 37.1 C 06/24/18 10:50 Pulse 58 L 06/24/18 07:45 Resp 16 06/24/18 07:45 BP 191/80 H 06/24/18 07:45 Pulse Ox 97 06/24/18 07:45 Labs : 06/24/18 06:55 06/24/18 06:55 Laboratory Results - last 24 hr 06/23/18 06/23/18 06/23/18 11:40 13:18 16:45 WBC RBC Hgb Hct MCV MCH MCHC RDW Plt Count MPV Immature Gran % Neutrophils % Lymphocytes % Monocytes % Eosinophils % Basophils % Absolute Neutrophils Absolute Lymphocytes Absolute Monocytes Absolute Eosinophils Absolute Basophils APTT Sodium Potassium Chloride Carbon Dioxide Anion Gap BUN Creatinine Estimated GFR/1.73 m2 Glucose Hemoglobin A1c Calcium Magnesium Total Bilirubin AST ALT Alkaline Phosphatase Troponin I 0.54 H 0.92 H Total Protein Albumin Urine Color Yellow Urine Clarity Clear Urine pH 7.0 Ur Specific [place] 1.025 Urine Protein >=300 H Urine Ketones Negative Urine Blood Trace-lysed H Urine Nitrite Negative Urine Bilirubin Negative Urine Urobilinogen 1.0 H Ur Leukocyte Esterase Negative Urine RBC 0-2 Urine WBC 0-2 Ur Epithelial Cells Negative Urine Crystals Negative Urine Bacteria Rare Urine Casts Negative Urine Mucus Negative Urine Other Negative Ur Culture Indicated? No Urine Glucose 250 H 06/23/18 06/23/18 06/24/18 18:20 20:45 01:02 WBC RBC Hgb Hct MCV MCH MCHC RDW Plt Count MPV Immature Gran % Neutrophils % Lymphocytes % Monocytes % Eosinophils % Basophils % Absolute Neutrophils Absolute Lymphocytes Absolute Monocytes Absolute Eosinophils Absolute Basophils APTT 23.4 45.0 H D Sodium Potassium Chloride Carbon Dioxide Anion Gap BUN Creatinine Estimated GFR/1.73 m2 Glucose Hemoglobin A1c Calcium Magnesium Total Bilirubin AST ALT Alkaline Phosphatase Troponin I 0.84 H Total Protein Albumin Urine Color Urine Clarity Urine pH Ur Specific [place] Urine Protein Urine Ketones Urine Blood Urine Nitrite Urine Bilirubin Urine Urobilinogen Ur Leukocyte Esterase Urine RBC Urine WBC Ur Epithelial Cells Urine Crystals Urine Bacteria Urine Casts Urine Mucus Urine Other Ur Culture Indicated? Urine Glucose 06/24/18 06/24/18 06/24/18 06:55 06:55 06:55 WBC RBC Hgb Hct MCV MCH MCHC RDW Plt Count MPV Immature Gran % Neutrophils % Lymphocytes % Monocytes % Eosinophils % Basophils % Absolute Neutrophils Absolute Lymphocytes Absolute Monocytes Absolute Eosinophils Absolute Basophils APTT 45.7 H Sodium 134 L Potassium 2.9 L* Chloride 98 Carbon Dioxide 22.2 Anion Gap 13.8 H BUN 31 H Creatinine 1.54 H Estimated GFR/1.73 m2 32.58 Glucose 135 H Hemoglobin A1c Calcium 8.1 L Magnesium 1.9 Total Bilirubin 2.0 H AST 61 H ALT 87 H Alkaline Phosphatase 137 H Troponin I 0.47 H Total Protein 6.4 Albumin 3.0 L Urine Color Urine Clarity Urine pH Ur Specific [place] Urine Protein Urine Ketones Urine Blood Urine Nitrite Urine Bilirubin Urine Urobilinogen Ur Leukocyte Esterase Urine RBC Urine WBC Ur Epithelial Cells Urine Crystals Urine Bacteria Urine Casts Urine Mucus Urine Other Ur Culture Indicated? Urine Glucose 06/24/18 06/24/18 06:55 06:55 WBC 10.79 RBC 4.64 Hgb 13.2 D Hct 37.7 MCV 81.3 MCH 28.4 MCHC 35.0 RDW 14.9 H Plt Count 281 MPV 10.3 Immature Gran % 0.3 Neutrophils % 83.5 Lymphocytes % 9.0 Monocytes % 7.0 Eosinophils % 0.1 Basophils % 0.1 Absolute Neutrophils 9.02 H Absolute Lymphocytes 0.97 L Absolute Monocytes 0.75 H Absolute Eosinophils 0.01 Absolute Basophils 0.01 APTT Sodium Potassium Chloride Carbon Dioxide Anion Gap BUN Creatinine Estimated GFR/1.73 m2 Glucose Hemoglobin A1c 6.4 H Calcium Magnesium Total Bilirubin AST ALT Alkaline Phosphatase Troponin I Total Protein Albumin Urine Color Urine Clarity Urine pH Ur Specific [place] Urine Protein Urine Ketones Urine Blood Urine Nitrite Urine Bilirubin Urine Urobilinogen Ur Leukocyte Esterase Urine RBC Urine WBC Ur Epithelial Cells Urine Crystals Urine Bacteria Urine Casts Urine Mucus Urine Other Ur Culture Indicated? Urine Glucose
--- NOTE | 2018-06-24 11:48 | PHARADMIT ---
Admission Pharmacy Clinical Review Code Status DNR/DNI Current Weight Wgt-46.2 kg Renally Cleared and Narrow Therapeutic Index Meds CrCl~ 21.6 mL/min Meds-OK QTc Value / Action Taken QTc-493 (Zofran,Zosyn) BP Control, Fever BP- 191/80 Tmax- 37.1C Electrolytes reviewed Na- 134 K+2.9 Mag-1.9 DVT Prophylaxis Heparin Opiate Usage / Scheduled Bowel Regimen Ordered Yes No Plt/SCr for Heparin / Enoxaparin Plts-281 SCr-1.54 INR for Warfarin na H/H stable, WBC/Bands H&H- 13.2/37.7 WBC- 10.79 Antibiotic appropriateness Zosyn, Cultures and Sensitivities blood-pending Surgical ABX d/c within 24 hr na DM control / Insulin Dosing BG- 135 Aspart, Heart Failure (Check EF%) (DEEPAK's, B-Block, Diuretics) Hydarlazine, IV to PO Switch No Home Meds Reviewed No KNOWN Meds Home Meds Not Ordered NONE Comments
[2018-06-24] MEDS: hydrALAZINE 20 MG/ML VIAL 10 MG IVP ×2 (12:15→20:19)
--- NOTE | 2018-06-24 12:55 | INITIAL_ITS ---
Care Management Initial Assess REASON FOR HOSPITALIZATION:: Porcelain Gallbladder PAST MEDICAL HISTORY/PAST SURGICAL HISTORY:: Bilat tubal ligation PREVIOUS FUNCTIONAL STATUS/SOCIAL/FAMILY SUPPORTS:: Sharda resides alone in [place], [place]. 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 She has six children, all local except a daughter who resides in [place]. She has fifteen grandchildren; a healthy supportive family is reported. She has not been to the doctor since birthing her last child 47 years ago. She was previously independent in the community and was providing childcare to her great grandchildren until a few weeks ago. She was previously independent with all ADLs in the community and will be evaluated for further needs prior to discharge. CURRENT FUNCTIONAL STATUS:: Sharda was lying in bed with her eyes closed. Her daughter and grand-daughter were at her bedside. ADVANCE DIRECTIVES:: On file at [facility]; daughters Jennifer and Sasha as agents. Has patient been provided with information about the portal?: Yes Did the patient sign up for the portal?: No CODE STATUS:: DNR/DNI INSURANCE COVERAGE / FINANCIAL ISSUES:: CM spoke with Aaron at [employer] who recommended contacting Ronak Ruth at [facility]; CM left with demographics for Sharda and George and requested [facility] Coverage information. CURRENT HOME/COMMUNITY SERVICES/EQUIPMENT:: No current services or equipment. PRIMARY CARE PHYSICIAN:: No local; CM will attempt PCP attachment prior to Sharda's discharge for follow up. POTENTIAL DISCHARGE NEEDS:: PCP assignment, evaluation for further needs, possible PC consult (dependent on care needs). PATIENT/FAMILY EDUCATION NEEDS:: Review discharge instructions, discuss Ask Me Three. ANTICIPATED BARRIERS TO DISCHARGE:: None identified at this time. TRANSPORTATION:: Via private vehicle with family. PLAN:: Sharda will continue to be worked up and her pain managed. MD reports possible down and back to [facility] for drain and ERCP and anticipates Sharda will be here for at least a few more days. CM will continue to have discharge planning considerations including increased services at home if appropriate per MD-to include Palliative Care.
--- NOTE | 2018-06-24 13:47 | PGE_ITS ---
Documented by User: CHRISTIAN Tavares 06/24/18 13:50 Date of Service Date of service: 06/24/18 Time of Service: 07:00 Assessment and Plan (1) Right upper quadrant abdominal pain of unknown etiology: Current visit: Yes Status: Acute AM Labs pending, cholecystectomy, for chronic cholecystitis, once cardiac cleared (2) Elevated troponin: Current visit: Yes Status: Acute Trending Troponin's, echo this morning. Awaiting Cardiac consult (3) STANLEY (acute kidney injury): Current visit: Yes Status: Acute Rehydrate. AM Labs pending (4) Hyperglycemia: Current visit: Yes Status: Acute Start insulin therapy if glucose remains elevated. (5) Choledocholithiasis: Current visit: Yes Status: Acute Started Zosyn for cholangitis prophylaxis, MRCP today, talk with GI in regards to timing ERCP Subjective Interval history since last seen: Arrived this morning, the patient patient sleeping. She reports generalized abdominal pain. She is unable to point to a specific location for her pain. She denies nausea or vomiting. Denies chest pain or feeling SOB. Exam Const General: cooperative and no acute distress Orientation: alert and awake Resp Effort & Inspection: normal respiratory effort Auscultation: clear to auscultation bilaterally and no wheezes Cardio Rate: regular rate Rhythm: regular rhythm Heart Sounds: S1 normal, S2 normal and no murmurs GI Inspection: normal to inspection and non-distended Palpation: soft, no guarding and tender in the RUQ Auscultation: hypoactive bowel sounds Objective Objective Clinical Data: Abnormal lab results 06/23/18 06/23/18 06/24/18 Range/Units 16:45 20:45 01:02 RDW (11.7-14.6) % Absolute Neutrophils (1.2-6.7) k/cumm Absolute Lymphocytes (1.2-3.4) k/cumm Absolute Monocytes (0.11-0.7) k/cumm APTT 45.0 H D (21.0-31.4) sec Sodium (136-145) mmol/L Potassium (3.5-5.1) mmol/L Anion Gap (3-11) mmol/L BUN (7-18) mg/dL Creatinine (0.55-1.02) mg/dL Glucose (70-100) mg/dL Hemoglobin A1c (4.5-6.2) % Calcium (8.5-10.1) mg/dL Total Bilirubin (0.2-1.0) mg/dL AST (15-37) U/L ALT (12-78) U/L Alkaline Phosphatase (46-116) U/L Troponin I 0.92 H 0.84 H (0.00-0.06) ng/mL Albumin (3.4-5.0) g/dL 06/24/18 06/24/18 06/24/18 Range/Units 06:55 06:55 06:55 RDW (11.7-14.6) % Absolute Neutrophils (1.2-6.7) k/cumm Absolute Lymphocytes (1.2-3.4) k/cumm Absolute Monocytes (0.11-0.7) k/cumm APTT 45.7 H (21.0-31.4) sec Sodium 134 L (136-145) mmol/L Potassium 2.9 L* (3.5-5.1) mmol/L Anion Gap 13.8 H (3-11) mmol/L BUN 31 H (7-18) mg/dL Creatinine 1.54 H (0.55-1.02) mg/dL Glucose 135 H (70-100) mg/dL Hemoglobin A1c (4.5-6.2) % Calcium 8.1 L (8.5-10.1) mg/dL Total Bilirubin 2.0 H (0.2-1.0) mg/dL AST 61 H (15-37) U/L ALT 87 H (12-78) U/L Alkaline Phosphatase 137 H (46-116) U/L Troponin I 0.47 H (0.00-0.06) ng/mL Albumin 3.0 L (3.4-5.0) g/dL 06/24/18 06/24/18 Range/Units 06:55 06:55 RDW 14.9 H (11.7-14.6) % Absolute Neutrophils 9.02 H (1.2-6.7) k/cumm Absolute Lymphocytes 0.97 L (1.2-3.4) k/cumm Absolute Monocytes 0.75 H (0.11-0.7) k/cumm APTT (21.0-31.4) sec Sodium (136-145) mmol/L Potassium (3.5-5.1) mmol/L Anion Gap (3-11) mmol/L BUN (7-18) mg/dL Creatinine (0.55-1.02) mg/dL Glucose (70-100) mg/dL Hemoglobin A1c 6.4 H (4.5-6.2) % Calcium (8.5-10.1) mg/dL Total Bilirubin (0.2-1.0) mg/dL AST (15-37) U/L ALT (12-78) U/L Alkaline Phosphatase (46-116) U/L Troponin I (0.00-0.06) ng/mL Albumin (3.4-5.0) g/dL Vital Signs Temperature 37 C 06/24/18 11:30 Temperature Source Tympanic 06/24/18 11:30 Pulse 68 06/24/18 11:30 Pulse Rhythm Regular 06/24/18 10:08 Pulse 86 06/23/18 12:10 Respiratory Rate 18 06/24/18 11:30 Respiratory Effort 06/24/18 10:08 Respiratory Depth Normal 06/24/18 10:08 Respiratory Pattern Normal 06/24/18 10:08 Blood Pressure 230/91 H 06/24/18 11:30 Blood Pressure Mean 98 06/23/18 12:01 Pulse Oximetry 98 06/24/18 11:30 Oxygen Delivery Method Room Air 06/24/18 11:30 Oxygen Flow Rate 0 06/24/18 11:30 Pain Level 6 06/24/18 11:30 Comment 06/24/18 03:45 Intake & Output 06/23/18 06/24/18 06/24/18 23:59 11:59 23:59 Intake Total 1938.333 / 4389.242 4920.542 / 1982.542 Output Total 600 / 600 650 / 650 Balance 1338.333 / 1101.239 8750.542 / 1332.542 Weight 46.266 kg Intake: IV 1458.333 / 5427.273 2657.542 / 1572.542 Oral 480 / 480 410 / 410 Output: Urine 600 / 600 650 / 650 Other: Urine Color Dark Nicole Light Nicole Urine Appearance Clear Clear Laboratory Results WBC 10.79 k/cumm (4.4-10.8) 06/24/18 06:55 RBC 4.64 m/cumm (4.00-5.20) 06/24/18 06:55 Hgb 13.2 g/dL (12.0-15.5) D 06/24/18 06:55 Hct 37.7 % (36.0-46.0) 06/24/18 06:55 MCV 81.3 fL (80-95) 06/24/18 06:55 MCH 28.4 pg (27.0-33.0) 06/24/18 06:55 MCHC 35.0 g/dL (32.0-36.0) 06/24/18 06:55 RDW 14.9 % (11.7-14.6) H 06/24/18 06:55 Plt Count 281 x1000/uL (130-400) 06/24/18 06:55 MPV 10.3 fL (8.0-11.0) 06/24/18 06:55 Immature Gran % 0.3 06/24/18 06:55 Neutrophils % 83.5 06/24/18 06:55 Lymphocytes % 9.0 06/24/18 06:55 Monocytes % 7.0 06/24/18 06:55 Eosinophils % 0.1 06/24/18 06:55 Basophils % 0.1 06/24/18 06:55 Absolute Neutrophils 9.02 k/cumm (1.2-6.7) H 06/24/18 06:55 Absolute Lymphocytes 0.97 k/cumm (1.2-3.4) L 06/24/18 06:55 Absolute Monocytes 0.75 k/cumm (0.11-0.7) H 06/24/18 06:55 Absolute Eosinophils 0.01 k/cumm (0.0-0.7) 06/24/18 06:55 Absolute Basophils 0.01 k/cumm (0.0-0.2) 06/24/18 06:55 APTT 45.7 sec (21.0-31.4) H 06/24/18 06:55 Sodium 134 mmol/L (136-145) L 06/24/18 06:55 Potassium 2.9 mmol/L (3.5-5.1) L* 06/24/18 06:55 Chloride 98 mmol/L (98-107) 06/24/18 06:55 Carbon Dioxide 22.2 mmol/L (21.0-32.0) 06/24/18 06:55 Anion Gap 13.8 mmol/L (3-11) H 06/24/18 06:55 BUN 31 mg/dL (7-18) H 06/24/18 06:55 Creatinine 1.54 mg/dL (0.55-1.02) H 06/24/18 06:55 Estimated GFR/1.73 m2 32.58 (mL/min/1.73m2) 06/24/18 06:55 Glucose 135 mg/dL (70-100) H 06/24/18 06:55 Hemoglobin A1c 6.4 % (4.5-6.2) H 06/24/18 06:55 Calcium 8.1 mg/dL (8.5-10.1) L 06/24/18 06:55 Magnesium 1.9 mg/dL (1.8-2.4) 06/24/18 06:55 Total Bilirubin 2.0 mg/dL (0.2-1.0) H 06/24/18 06:55 AST 61 U/L (15-37) H 06/24/18 06:55 ALT 87 U/L (12-78) H 06/24/18 06:55 Alkaline Phosphatase 137 U/L (46-116) H 06/24/18 06:55 Creatine Kinase 74 U/L (26-192) 06/23/18 09:30 Troponin I 0.47 ng/mL (0.00-0.06) H 06/24/18 06:55 Total Protein 6.4 g/dL (6.4-8.2) 06/24/18 06:55 Albumin 3.0 g/dL (3.4-5.0) L 06/24/18 06:55 Lipase 100 U/L (73-393) 06/23/18 09:00 Urine Color Yellow (Yellow) 06/23/18 13:18 Urine Clarity Clear 06/23/18 13:18 Urine pH 7.0 (5-8) 06/23/18 13:18 Ur Specific [place] 1.025 (1.005-1.025) 06/23/18 13:18 Urine Protein >=300 mg/dL (Negative) H 06/23/18 13:18 Urine Ketones Negative mg/dL (Negative) 06/23/18 13:18 Urine Blood Trace-lysed (Negative) H 06/23/18 13:18 Urine Nitrite Negative (Negative) 06/23/18 13:18 Urine Bilirubin Negative (Negative) 06/23/18 13:18 Urine Urobilinogen 1.0 EU/dL (Up TO 0.2) H 06/23/18 13:18 Ur Leukocyte Esterase Negative (Negative) 06/23/18 13:18 Urine RBC 0-2 (0-2) 06/23/18 13:18 Urine WBC 0-2 HPF (0-5) 06/23/18 13:18 Ur Epithelial Cells Negative HPF (Negative) 06/23/18 13:18 Urine Crystals Negative HPF (Negative) 06/23/18 13:18 Urine Bacteria Rare HPF (Negative) 06/23/18 13:18 Urine Casts Negative LPF (Negative) 06/23/18 13:18 Urine Mucus Negative (Negative) 06/23/18 13:18 Urine Other Negative (Negative) 06/23/18 13:18 Ur Culture Indicated? No 06/23/18 13:18 Urine Glucose 250 mg/dL (Negative) H 06/23/18 13:18 Documented by User: Isma De La Cruz DO 06/24/18 19:42 Assessment and Plan (1) Right upper quadrant abdominal pain of unknown etiology: Current visit: Yes Status: Acute Symptomatic cholelithiasis, problable chronic cholecystitis, plan for lap cholecystectomy was CBD stones are clear (2) Elevated troponin: Current visit: Yes Status: Acute Appreciate cardiology comments, demand ischemia, tropinin trending down, echol EF 70 percent hyperdynamic with no wall abnormalities, Heparin was instituted as temporary prophylaxis, stop tomorrow AM, check PTT (3) STANLEY (acute kidney injury): Current visit: Yes Status: Acute Improving with fluid resuscitation, continue fluids, continue to monitor creatinine (4) Hyperglycemia: Current visit: Yes Status: Acute Started Insulin therapy. (5) Choledocholithiasis: Current visit: Yes Status: Acute MRCP confirms stones, bilirubin trending up, with continue RUQ Pain, spoke with GI in regards to ERCP. tentative plans for tomorrow down and [place] [facility] [place] Dr. Yu, fellow Jen Aguirre. Expect call in AM
--- NOTE | 2018-06-24 14:00 | DI.MRI_ITS ---
SYMPTOMS/DIAGNOSIS: CHOLEDOCHOLITHIASIS, PORCELAIN GALLBLADDER MRI OF THE ABDOMEN: Comparison is made with a CT dated June,. The exam is limited by patient motion. She was unable to follow breathing instructions. There are tiny bilateral pleural effusions. Multiple small stones are noted in the gallbladder. There is dilatation of the common bile duct to 13 mm. There are several stones seen distally, three or four. The duct tapers distal to this area. There is a small amount of fluid around the spleen and tail of the pancreas. No evident pancreatic inflammation is seen. IMPRESSION: Limited exam due to patient motion. Dilatation of the common bile duct and choledocholithiasis is again demonstrated.
[2018-06-24] MEDS: amLODIPine 5 MG TAB PO (15:35)
--- NOTE | 2018-06-24 15:43 | CHAPLAIN ---
Sharda was having an MRI done when I stopped in her room. I met three of her daughters and a granddaughter and brought a comfort shawl for Sharda.
--- NOTE | 2018-06-24 17:44 | W.MEDCONSULT ---
Date of service: 06/24/18 Time of Service: 17:44 Assessment and Plan (1) Right upper quadrant abdominal pain of unknown etiology: Current visit: Yes Status: Acute Potential for acute on chronic Cholecystitis, with concern for Cholangitis as well given imaging findings. Cannot definitely rule out GB Carcinoma. Continue Pip-Tazo, day #2, and await discussion between surgery and GI regarding definitive approach to care. (2) Elevated troponin: Current visit: Yes Status: Acute Very likely demand ischemia in patient without symptoms, EKG changes, or wall motion abnormalities on ECHO - also with a normal LVEF. Plan on anticoagulation for 48 hours with heparin gtt. Hold off on aspirin as patient may need surgical intervention. No indication for BB's at this time. Mrs. Marques may benefit from stress testing in the future - however, unsure if testing prior to intervention will add anything or adjust care in any way other than for risk stratification, and may lead to need for more studies. Patient may be of moderate or even high risk, but ultimately will need intervention in some form given the severity of her symptoms. Attempt reasonable blood pressure control - currently with pain contributing significantly to elevation. Initiated CCB therapy with IV Hydralazine on a prn basis. (3) Choledocholithiasis: Current visit: Yes Status: Acute Plan as above. (4) Hyperglycemia: Current visit: Yes Status: Acute HgA1C in the prediabetic range. (5) STANLEY (acute kidney injury): Current visit: Yes Status: Acute Improved with hydration. Likely prerenal, but may ultimately have component of CKD as well given lack of medical care. (6) DVT prophylaxis: Current visit: Yes Status: Acute Currently on therapeutic heparin. (7) Advance directive on file: Current visit: Yes Status: Acute DNR/DNI History of Present Illness Chief Complaint: Abdominal Pain Narrative: Very pleasant 78-year-old woman without known prior history, but without any medical care over the last 40 years, admitted from [facility] emergency department with a diagnosis of likely cholecystitis. Mrs. Marques was to a local corona prior to being . She has not received any medical care for some time. She began experiencing RUQ pain approximately 2 months ago, associated with meals, which has intensified progressively. Her symptoms included nausea, vomiting, increasingly poor oral intake, and weakness. She also began experiencing diarrhea. On the morning of admission she was unable to get out of bed. She was transported to the ED by EMS, and further work-up was significant for a elevation in WBC, creatinine, troponin, and LFTs. Subsequent imaging showed gallstones, calcification of the fundus of the gallbladder, and a left adrenal nodule. A subsequent ultrasound confirmed cholelithiasis, along with stones in the Common Bile Duct causing mild dilation. Subsequent MRCP confirmed choledocholithiasis as well as CBD Dilation. Mrs. Marques was initiated on antibiotic therapy and admitted. Her troponin and creatinine improved with hydration overnight, and a subsequent ECHO showed a normal LVEF with normal wall motion. The patient's pain has intensified today. Her blood pressure remains elevated as well. [facility] Surgical History History of bilateral tubal ligation (Acute) Social History caregiver/support person: Yes (Family checks in regularly) housing: house number of children: 6 Smoking/Tobacco Use Status: Never alcohol intake: never substance use type: does not use History History 6 Para 6 Hx # Term Pregnancies Multiple births Hx # Pregnancies Ectopic pregnancies AB induced Hx Number of Living Children 6 AB spontaneous Results Last Vital Signs Temp 36.4 C L 06/24/18 16:20 Pulse 85 06/24/18 16:20 Resp 19 06/24/18 16:20 BP 177/74 H 06/24/18 16:20 Pulse Ox 97 06/24/18 16:20 Labs : 06/24/18 06:55 06/24/18 06:55 Laboratory Results - last 24 hr 06/23/18 06/23/18 06/24/18 18:20 20:45 01:02 WBC RBC Hgb Hct MCV MCH MCHC RDW Plt Count MPV Immature Gran % Neutrophils % Lymphocytes % Monocytes % Eosinophils % Basophils % Absolute Neutrophils Absolute Lymphocytes Absolute Monocytes Absolute Eosinophils Absolute Basophils APTT 23.4 45.0 H D Sodium Potassium Chloride Carbon Dioxide Anion Gap BUN Creatinine Estimated GFR/1.73 m2 Glucose Hemoglobin A1c Calcium Magnesium Total Bilirubin AST ALT Alkaline Phosphatase Troponin I 0.84 H Total Protein Albumin 06/24/18 06/24/18 06/24/18 06:55 06:55 06:55 WBC RBC Hgb Hct MCV MCH MCHC RDW Plt Count MPV Immature Gran % Neutrophils % Lymphocytes % Monocytes % Eosinophils % Basophils % Absolute Neutrophils Absolute Lymphocytes Absolute Monocytes Absolute Eosinophils Absolute Basophils APTT 45.7 H Sodium 134 L Potassium 2.9 L* Chloride 98 Carbon Dioxide 22.2 Anion Gap 13.8 H BUN 31 H Creatinine 1.54 H Estimated GFR/1.73 m2 32.58 Glucose 135 H Hemoglobin A1c Calcium 8.1 L Magnesium 1.9 Total Bilirubin 2.0 H AST 61 H ALT 87 H Alkaline Phosphatase 137 H Troponin I 0.47 H Total Protein 6.4 Albumin 3.0 L 06/24/18 06/24/18 06:55 06:55 WBC 10.79 RBC 4.64 Hgb 13.2 D Hct 37.7 MCV 81.3 MCH 28.4 MCHC 35.0 RDW 14.9 H Plt Count 281 MPV 10.3 Immature Gran % 0.3 Neutrophils % 83.5 Lymphocytes % 9.0 Monocytes % 7.0 Eosinophils % 0.1 Basophils % 0.1 Absolute Neutrophils 9.02 H Absolute Lymphocytes 0.97 L Absolute Monocytes 0.75 H Absolute Eosinophils 0.01 Absolute Basophils 0.01 APTT Sodium Potassium Chloride Carbon Dioxide Anion Gap BUN Creatinine Estimated GFR/1.73 m2 Glucose Hemoglobin A1c 6.4 H Calcium Magnesium Total Bilirubin AST ALT Alkaline Phosphatase Troponin I Total Protein Albumin
[2018-06-24] MEDS: POTASSIUM CHLORIDE 10 MEQ/100 ML BAG 100 MEQ IVPB (20:04)
[2018-06-25] MEDS: Normal Saline Flush 10 ML SYR IVP (02:51)
[2018-06-25] MEDS: ACETAMINOPHEN 1,000 MG/100 ML BTL 400 MG IVPB ×2 (03:54→09:45)
[2018-06-25] MEDS: PIPERACILLIN/TAZO 2.25 GM in Normal Saline 50 ML IVPB (04:20)
[2018-06-25 04:23] VITALS: BP 154/74; PULSE 103; RESP 18; TEMP 36.9; O2SAT 96
[2018-06-25] MEDS: Normal Saline 1,000 ML 125 ML IV (05:22)
[2018-06-25 07:05] VITALS: PULSE 104
[2018-06-25 07:28] LABS: HCT 38.5 % (36.0-46.0); Mean Corp. HGB Concentration 33.8 g/dL (32.0-36.0); Mean Corpuscular Hemoglobin 27.8 pg (27.0-33.0); Mean Corpuscular Volume 82.4 fL (80-95); Mean Platelet Volume 10.6 fL (8.0-11.0); Platelet Count 279 x1000/uL (130-400); RBC 4.67 m/cumm (4.00-5.20); RBC Distribution Width 15.5 % (11.7-14.6)
[2018-06-25 07:36] LABS: White Blood Cell Count 26.41 k/cumm (4.4-10.8)
[2018-06-25 07:50] VITALS: BP 156/74; PULSE 65; RESP 18; TEMP 37.5; O2SAT 96
[2018-06-25 07:56] LABS: Absolute Lymphocyte Count 1.85 k/cumm (1.2-3.4); Absolute Monocyte Count 1.06 k/cumm (0.11-0.7); Diff Comment Manual Differential; PTT Activated 48.8 sec (21.0-31.4); RBC Morphology Normal
[2018-06-25 08:03] LABS: ALT 98 U/L (12-78); AST 103 U/L (15-37); Albumin 2.8 g/dL (3.4-5.0); Alkaline Phosphatase 120 U/L (46-116); Anion Gap 15.1 mmol/L (3-11); BUN 26 mg/dL (7-18); Bilirubin, Total 3.5 mg/dL (0.2-1.0); CO2 19.9 mmol/L (21.0-32.0); CREATININE 1.22 mg/dL (0.55-1.02); Calcium 8.2 mg/dL (8.5-10.1); Chloride 101 mmol/L (98-107); Estimated GFR 42.63 (mL/min/1.73m2); Glucose 85 mg/dL (70-100); Magnesium 1.7 mg/dL (1.8-2.4); Potassium 3.5 mmol/L (3.5-5.1); Sodium 136 mmol/L (136-145); Total Protein 5.9 g/dL (6.4-8.2)
[2018-06-25] MEDS: amLODIPine 5 MG TAB PO (08:43)
[2018-06-25] MEDS: MAGNESIUM SULFATE 1 GM/100 ML BAG IVPB (08:43)
[2018-06-25] MEDS: PIPERACILLIN/TAZO 4.5 GM in Normal Saline 100 ML IVPB (08:54)
[2018-06-25] MEDS: POTASSIUM CHLORIDE 20 MEQ/100 ML BAG 50 MEQ IVPB ×2 (09:56→12:10)
[2018-06-25 10:07] LABS: Lactate-non-spesis 1.2 mmol/L (0.6-1.4)
--- NOTE | 2018-06-25 11:40 | DSE_ITS ---
Date of service: 06/25/18 Time of Service: 11:24 DS: Diagnosis Discharge Diagnosis (1) Elevated troponin: Status: Acute Asessment and Plan: Demand ischemia from obstructing obstructing choledocholithiasis, resolved with fluids, pain control, Echo with no wall abnormalities, EF hyperdynamic 70%, ECG w/o ishemic changes. Heparin drip stopped at 7 am, PTT was 45 s this am. (2) STANLEY (acute kidney injury): Status: Acute Asessment and Plan: Responding to fluids, Creatinine went from 2.1 to 1.2, unknown baseline. (3) Hyperglycemia: Status: Acute Asessment and Plan: On insulin protocol, with good control (4) Choledocholithiasis: Status: Acute Asessment and Plan: Bilirubing continues to rise, 3.5 today, worsening RUQ tenderness to palpation, no rebound tenderness (5) Cholangitis due to bile duct calculus with obstruction: Status: Acute Asessment and Plan: WBC now 24, no fevers, but on IV tylenol, lactate normal 1.2, on Zosyn 4.5gm extended infusion (6) Hypertension: Status: Acute Asessment and Plan: Started on amlodipine and hydralazine, pain signifi cant contributor of hypertension, but some chronic element likely, unknown baseline due to, no medical care for last 40 years (7) Malnutrition: Status: Acute Asessment and Plan: Poor oral intake for last month or more. Once acute phase resolved plan was to start TPN along with PO prior to surgery. Discharge Plan Disposition Patient Disposition: [facility] Condition: Fair Discharge Details Reason For Visit: Obstructing choledocholithiasis w/cholangitis Admit Date/Time: 06/23/18 13:58 Admit Provider: Isma De La Cruz Attending Provider: Isma De La Cruz Primary Care Provider: None,None Hospital Course Hospital Course: Procedures: PICC insertion Consults: Cardiology, Dr. Kulkarni Medicine, Dr. Damico Gastroenterology, Dr. Aguirre/Dr. Yu HPI: Right upper Quadrant abdominal pain Narrative: 78-year-old female presenting to the emergency room with right upper quadrant pain, with associated nausea, vomiting, and weakness. Her current episode of symptoms started Friday, but she has had similar symptoms for the past 8 weeks starting around 23 April. Her symptoms in April with right upper quadrant pain with malaise, nausea, vomiting, and diarrhea. The diarrhea is reported as a loose foul-smelling stools. She woke up this morning and could not get out of bed due to weakness. An ambulance was called, and she transported to the ER. Work-up in the ER demonstrated an slightly elevated troponin, acute kidney injury, cholelithiasis with choledocholithiasis. She has not seen a medical provider for over 40 years; so, she has no known medical history documented. Hospital Course: She was admitted for further workup of her multiple medical issues. She was started on Zosyn with renal dosing due to her acute kidney injury, and she was fluid resuscitated, along with trending her troponins. Her troponin peaked at 0.97 at 8 hours, but then started trending down in response to fluids and pain control. Cardiology was consult consulted, and appreciate their input, an echocardiogram was performed. Her acute kidney injury responded to fluid with the creatinine trending down. Her blood pressure was brought under control with pain medication, and antihypertensive medications. Multiple common bile duct stones were seen both on ultrasound and confirmed by MRI, along with her rising bilirubin confirms that these are obstructing. Her white count has increased to 24,000 after initially normalizing with the start of antibiotics. Her antibiotic dosing was changed with correction of her creatinine. GI was consulted for ERCP. The patient was accepted for the procedure with admission to ICU for monitoring prior and after, as appropriate given her condition, the ERCP. I appreciate Dr. Aguirre and Dr. Yu's assistance in the treatment of Ms. Mcmanus. She is malnourished she is really had poor oral intake for approximately 3 months worsening over that period, along with deconditioning du ring that timeframe.. She does have a PICC line in place with the intent to start TPN after treating her acute issues, but prior to this surgery for the gallbladder. The TPN would have been in addition to any oral nutrition that she would take. MEDICINE CONSULTATION PATIENT NAME: CHAYO MCMANUS #: [id number] PROVIDER: Jesus Damico M.D. Date of service: 06/24/18 Time of Service: 17:44 Assessment and Plan (1) Right upper quadrant abdominal pain of unknown etiology: Current visit: Yes Status: Acute Potential for acute on chronic Cholecystitis, with concern for Cholangitis as well given imaging findings. Cannot definitely rule out GB Carcinoma. Continue Pip-Tazo, day #2, and await discussion between surgery and GI regarding definitive approach to care. (2) Elevated troponin: Current visit: Yes Status: Acute Very likely demand ischemia in patient without symptoms, EKG changes, or wall motion abnormalities on ECHO - also with a normal LVEF. Plan on anticoagulation for 48 hours with heparin gtt. Hold off on aspirin as patient may need surgical intervention. No indication for BB's at this time. Mrs. Mcmanus may benefit from stress testing in the future - however, unsure if testing prior to intervention will add anything or adjust care in any way other than for risk stratification, and may lead to need for more studies. Patient may be of moderate or even high risk, but ultimately will need intervention in some form given the severity of her symptoms. Attempt reasonable blood pressure control - currently with pain contributing significantly to elevation. Initiated CCB therapy with IV Hydralazine on a prn basis. (3) Choledocholithiasis: Current visit: Yes Status: Acute Plan as above. (4) Hyperglycemia: Current visit: Yes Status: Acute HgA1C in the prediabetic range. (5) STANLEY (acute kidney injury): Current visit: Yes Status: Acute Improved with hydration. Likely prerenal, but may ultimately have component of CKD as well given lack of medical care. (6) DVT prophylaxis: Current visit: Yes Status: Acute Currently on therapeutic heparin. (7) Advance directive on file: Current visit: Yes Status: Acute DNR/DNI CARDIOLOGY CONSULTATION PATIENT NAME: CHAYO MCMANUS AUNOPAL #: [id number] PROVIDER: WINDY SCHRADER,PhD,GEOVANNI #: [id number] Date of service: 06/24/18 Time of Service: 11:36 Assessment and Plan (1) Elevated troponin: Start date: 06/23/18 Current visit: Yes Status: Acute Troponin elevation in the setting of acute cholecystitis and acute kidney injury, accelerated hypertension, and hyperdynamic LV. Doubt that the troponin elevation is due to acute plaque rupture. EKG without acute ischemic changes. No regional wall motion abnormalities on echocardiogram, preserved LVEF. No symptoms suggestive of angina. It would not be unreasonable to pursue nuclear stress testing prior to surgery for risk stratification. However, an abnormal stress test in absence of anginal symptoms would only require further investigation, i.e. cardiac catheterization, if high risk, i.e. large ischemia. At this point maintaining adequate hydration to avoid syncope due to hyperdynamic outflow obstruction is most important. If one wanted to pursue stress testing she should complete 48 hours of heparin, otherwise it can be stopped. Given bradycardia avoid AV jolie blocking agents. Agree with as needed hydralazine. If persistent hypertension with blood pressure greater than 140/90 one can consider adding losartan once renal function has normalized and is stable or amlodipine. Home Meds and New Rx's Prescriptions: New amlodipine 5 mg Tablet 5 mg PO DAILY Qty: 0 RF: 0 hydralazine 20 mg/mL Solution 10 mg IVP Q4H PRN PRNQty: 0.5 RF: 0 Novolog Flexpen U-100 Insulin 100 unit/mL Insulin Pen subcut 0800,1200,1700 Qty: 0 RF: 0 morphine 4 mg/mL Solution 2 - 4 mg IVP Q4H PRN PRNQty: 0 RF: 0 promethazine 25 mg/mL Solution 12.5 mg IM/IV Q4H PRN PRNQty: 0 RF: 0 ranitidine HCl 50 mg/2 mL (25 mg/mL) Solution 50 mg IVP Q12H Qty: 0 RF: 0 No Action No Known Home Meds RF: 0 Discharge Instructions Care Plan Goals: Transfer to [facility] [facility] ICU for observation pre and post care for ERCP, accepting physician Dr. Austin Stand Alone Forms: Nursing Discharge Form Activity:: Activity as Tolerated Diet:: NPO Discharge Orders Discharge Orders: Discharge Order (Routine); Ordered 06/25/18 Ordered By: Isma De La Cruz DS: Summary Status at Discharge Functional status at discharge: bed bound Overall status at discharge: patient is not back to baseline Time Spent with Patient Greater than 30 minutes Exam Const General: cooperative, acute distress mild, frail appearing and ill appearing Nutritional Appearance: thin Orientation: alert, awake and oriented x3 HENMT Head: normal to inspection, normocephalic and atraumatic Ears: hearing grossly normal bilaterally and hearing grossly impaired General nose exam: external nose normal Face and sinus: normal facial exam Mouth: oral mucosae normal Eyes General: appearance normal, both eyes and all related structures Periorbital: periorbital findings normal Conjunctivae: conjunctivae normal Sclera: scleral abnormality bilaterally other (icterus) Pupils: PERRL EOM: EOM intact bilaterally Neck Neck: normal visual inspection, trachea midline and supple Chest Chest: normal inspection of the chest Resp Effort & Inspection: normal respiratory effort and not labored Auscultation: clear to auscultation bilaterally Cardio Rate: regular rate Rhythm: regular rhythm Heart Sounds: S1 normal and S2 normal GI Inspection: non-distended Palpation: no guarding and tender in the RUQ and Elaine's sign positive (positive); with no rebound tenderness Back/Spine/Pelvis Back: no CVA tenderness Skin General skin exam: no rashes or lesions noted and turgor normal Neuro General: moves all extremities, no focal motor deficits and CN's II-XI intact bilaterally Extrem General: full ROM, normal capillary refill and no clubbing, cyanosis or edema Psych Appearance: grossly normal Mental Status: mental status grossly normal Attitude: cooperative Judgment: judgment good DS: Data Vitals/I&O Vitals and I&O: Vital Signs Temperature 37.5 C 06/25/18 07:50 Temperature Source Tympanic 06/25/18 07:50 Pulse 65 06/25/18 07:50 Pulse Rhythm Regular 06/24/18 21:33 Pulse 86 06/23/18 12:10 Respiratory Rate 18 06/25/18 07:50 Respiratory Effort Non-Labored 06/24/18 21:33 Respiratory Depth Normal 06/24/18 21:33 Respiratory Pattern Normal 06/24/18 21:33 Blood Pressure 156/74 H 06/25/18 07:50 Blood Pressure Mean 98 06/23/18 12:01 Pulse Oximetry 96 06/25/18 07:50 Oxygen Delivery Method Room Air 06/25/18 07:50 Oxygen Flow Rate 0 06/25/18 07:50 Pain Level 7 06/25/18 07:50 Comment 06/24/18 03:45 Intake & Output 06/24/18 06/25/18 06/25/18 18:59 06:59 18:59 Intake Total 1645 / 3379.458 1734.458 / 3379.458 533.333 / 533.333 Output Total 1000 / 1000 Balance 1645 / 2379.458 734.458 / 2379.458 533.333 / 533.333 Intake: IV 1075 / 2749.458 1674.458 / 2749.458 533.333 / 533.333 Oral 570 / 630 60 / 630 Output: Urine 1000 / 1000 Other: Urine Color Dark Nicole Urine Appearance Clear Clear Labs on day of discharge: Labs from last 24 hours 06/25/18 06/25/18 06/25/18 09:55 06:50 06:50 WBC 26.41 H* D RBC 4.67 Hgb 13.0 Hct 38.5 MCV 82.4 MCH 27.8 MCHC 33.8 RDW 15.5 H Plt Count 279 MPV 10.6 Immature Gran % 0.0 Neutrophils % 87.0 Lymphocytes % 7.0 Monocytes % 4.0 Eosinophils % 0.0 Basophils % 0.0 Absolute Neutrophils 23.50 H Band Neutrophils 2.0 Absolute Lymphocytes 1.85 Absolute Monocytes 1.06 H Absolute Eosinophils 0.00 Absolute Basophils 0.00 Differential Comment Manual differential RBC Morphology Normal APTT Sodium 136 Potassium 3.5 Chloride 101 Carbon Dioxide 19.9 L Anion Gap 15.1 H BUN 26 H Creatinine 1.22 H Estimated GFR/1.73 m2 42.63 Glucose 85 D Lactate 1.2 Calcium 8.2 L Magnesium 1.7 L Total Bilirubin 3.5 H AST 103 H ALT 98 H Alkaline Phosphatase 120 H Total Protein 5.9 L Albumin 2.8 L 06/25/18 06:50 WBC RBC Hgb Hct MCV MCH MCHC RDW Plt Count MPV Immature Gran % Neutrophils % Lymphocytes % Monocytes % Eosinophils % Basophils % Absolute Neutrophils Band Neutrophils Absolute Lymphocytes Absolute Monocytes Absolute Eosinophils Absolute Basophils Differential Comment RBC Morphology APTT 48.8 H Sodium Potassium Chloride Carbon Dioxide Anion Gap BUN Creatinine Estimated GFR/1.73 m2 Glucose Lactate Calcium Magnesium Total Bilirubin AST ALT Alkaline Phosphatase Total Protein Albumin Preliminary micro results at discharge 06/23/18 16:57 Blood Culture - Preliminary Blood NO GROWTH 24 HOURS 06/23/18 16:45 Blood Culture - Preliminary Blood NO GROWTH 24 HOURS MRI:MR alessandra hoyt SYMPTOMS/DIAGNOSIS: CHOLEDOCHOLITHIASIS, PORCELAIN GALLBLADDER MRI OF THE ABDOMEN: Comparison is made with a CT dated June,. The exam is limited by patient motion. She was unable to follow breathing instructions. There are tiny bilateral pleural effusions. Multiple small stones are noted in the gallbladder. There is dilatation of the common bile duct to 13 mm. There are several stones seen distally, three or four. The duct tapers distal to this area. There is a small amount of fluid around the spleen and tail of the pancreas. No evident pancreatic inflammation is seen. IMPRESSION: Limited exam due to patient motion. Dilatation of the common bile duct and choledocholithiasis is again demonstrated. US:US abdomen limited SYMPTOMS/DIAGNOSIS: SEAMUS GB ON CT, WT LOSS RIGHT UPPER QUADRANT ULTRASOUND: Mobile stones are noted in the gallbladder. There is calcification faintly visualized in the fundus of the gallbladder as well as a question of adenomyomatosis. No mass is visible. There is dilatation of the common bile duct. Three stones are noted in the common bile duct. The duct is dilated to 11 mm. No intrahepatic biliary dilatation is seen. There is no pericholecystic fluid. The pancreas is obscured by bowel gas. IMPRESSION: Cholelithiasis. Three stones are noted in the common bile duct causing mild dilatation. CT:CT abdomen & pelvis wo SYMPTOMS/DIAGNOSIS: EPIGASTRIC PAIN, PALPABLE AORTA, VOMITING NONCONTRAST CT OF THE ABDOMEN AND PELVIS: A noncontrast exam was performed. Coronary artery calcification and aortic annular calcifications are seen. The is a small pericardial effusion and tiny bilateral pleural effusions. There is minimal basilar dependent changes. Stones are noted in the gallbladder. There is some peripheral calcification at the fundus of the gallbladder. No mass is visible. There is mild patient motion on the upper images of the abdomen. No gross liver lesions are identified. The spleen is normal in size. There is a small nodule in the left adrenal. There is motion in this area. The kidneys are unremarkable. No pancreatic mass or inflammation is visible. The bladder, uterus and ovaries are unremarkable. There is no bowel dilatation or inflammatory change. A nonobstructing stone is seen at the upper pole of the right kidney. The aorta shows calcification and is normal in diameter. Scoliosis and degenerative changes are noted in the spine. IMPRESSION: Cholelithiasis. Wall calcification at the fundus of the gallbladder. No evidence of biliary dilatation or acute cholecystitis. US:US echocardiogram *[facility]* *[facility]* [address] [place] [id number] Date of study: 06/24/2018 Transthoracic Echocardiography M-mode, complete 2D, complete spectral Doppler, and color Doppler *STUDY CONCLUSIONS* Summary: 1. Left ventricle: The cavity size was below normal. Wall thickness was increased in a pattern of mild LVH. Systolic function was hyperdynamic. The estimated ejection fraction was 65-70%. There was no significant dynamic obstruction at rest. Patient was unable to perform Valsalva to further assess obstruction. Wall motion was normal; there were no regional wall motion abnormalities. Findings consistent with diastolic dysfunction. 2. Left atrium: The atrium was mildly dilated. 3. Right ventricle: The cavity size was normal. Wall thickness was normal. Systolic function was normal. 4. Pulmonary arteries: Pulmonary systolic pressure was mildly increased, in the range of 35mm Hg to 40mm Hg. 5. Inferior vena cava: The vessel was patent and small, appearing collapsed. *PATIENT PRESENTATION* Height: 147.3cm ((58in) ) S/D Pressure: 191 / 80 Weight: 45.8kg ((100.8lb) ) BSA: 1.37m^2 Test start time: 09:10 AM. Test stop time: 10:10 AM. PERFORMING [facility] ORDERING Isma De La Cruz REFERRING Isma De La Cruz CONSULTING None, None CENTRIFUGAL SCREEN TENDER RT Nathaniel (Monae)(CT), PHILLIP REFERRING Do Dorothy Liz *PROCEDURE DATA* Procedure information: The patient was identified by two identifiers. This study was interpreted by [facility]. Pertinent images and digital data are archived for permanent storage and are available for subsequent review. No prior study was available for comparison. Study status: Routine. Transthoracic echocardiography. M-mode, complete 2D, complete spectral Doppler, and color Doppler. A Transthoracic Echocardiogram was performed. Scanning was performed from the parasternal, apical, subcostal, and suprasternal notch acoustic windows. Images were obtained using an [id number] cardiac ultrasound machine. Image quality was adequate. Study completion: The patient tolerated the procedure well. There were no complications. History: PMH: Elevated troponin. *CARDIAC ANATOMY* Left ventricle: The cavity size was below normal. Wall thickness was increased in a pattern of mild LVH. Systolic function was hyperdynamic. The estimated ejection fraction was 65-70%. There was no significant dynamic obstruction at rest. Patient was unable to perform Valsalva to assess further assess obstruction. Wall motion was normal; there were no regional wall motion abnormalities. Findings consistent with diastolic dysfunction. Aortic valve: Trileaflet; mildly thickened, mildly calcified leaflets. Mobility was not restricted. Doppler: Transvalvular velocity was within the normal range. There was no stenosis. There was no significant regurgitation. VTI ratio of LVOT to aortic valve: 0.79. Valve area (VTI): 2cm^2. Indexed valve area (VTI): 1.4cm^2/m^2. Peak velocity ratio of LVOT to aortic valve: 0.55. Valve area (Vmax): 1.4cm^2. Indexed valve area (Vmax): 1cm^2/m^2. Mean velocity ratio of LVOT to aortic valve: 0.71. Valve area (Vmean): 1.8cm^2. Indexed valve area (Vmean): 1.3cm^2/m^2. Mean gradient (S): 10.1mm Hg. Peak gradient (S): 21.1mm Hg. Aorta: Aortic root: The aortic root was normal in size. Ascending aorta: The ascending aorta was normal in size. Mitral valve: Moderately calcified annulus. Mobility was not restricted. Doppler: Transvalvular velocity was within the normal range. There was no evidence for stenosis. There was no significant regurgitation. Valve area by pressure half-time: 2.2cm^2. Indexed valve area by pressure half-time: 1.6cm^2/m^2. Peak gradient (D): 4.2mm Hg. Left atrium: The atrium was mildly dilated. Right ventricle: The cavity size was normal. Wall thickness was normal. Systolic function was normal. Pulmonic valve: Structurally normal valve. Doppler: Transvalvular velocity was within the normal range. There was no evidence for stenosis. There was trivial regurgitation. Peak gradient (S): 5.4mm Hg. Tricuspid valve: Structurally normal valve. Doppler: Transvalvular velocity was within the normal range. There was no evidence for stenosis. There was mild regurgitation. Pulmonary artery: Pulmonary systolic pressure was mildly increased, in the range of 35mm Hg to 40mm Hg. Right atrium: The atrium was normal in size. Pericardium: There was no pericardial effusion. Systemic veins: Inferior vena cava: Well visualized. The vessel was patent and small, appearing collapsed. The respirophasic diameter changes were in the normal range (greater than or equal to 50%). Baseline ECG: Bradycardia. Measurements Left ventricle Value Reference LV ID, ED, PLAX 3.7 cm 3.5 - 6.0 LV ID, ES, PLAX 2.2 cm 2.1 - 4.0 LV PW thickness, ED, PLAX 1.1 cm LV end-diastolic volume, 1-p A2C 58 ml LV ejection fraction, 1-p A2C 75 % LV end-diastolic volume, 1-p A4C 40 ml LV ejection fraction, 1-p A4C 66 % LV e', lateral 0.038 m/sec LV E/e', lateral 27 LV e', medial 0.037 m/sec LV E/e', medial 28 LV e', average 0.037 m/sec LV E/e', average 28 Ventricular septum Value Reference IVS thickness, ED, PLAX 1.2 cm LVOT Value Reference LVOT ID, A-P 1.8 cm LVOT area 2.5 cm^2 LVOT peak velocity, S 1.27 m/sec LVOT mean velocity, S 1.04 m/sec LVOT VTI, S 33.0 cm LVOT peak gradient, S 6.5 mm Hg LVOT mean gradient, S 4.7 mm Hg Stroke volume (SV), LVOT DP 83 ml Stroke index (SV/bsa), LVOT DP 61 ml/m^2 Aortic valve Value Reference Aortic valve peak velocity, S 2.3 m/sec Aortic valve mean velocity, S 1.48 m/sec Aortic valve VTI, S 42.0 cm Aortic mean gradient, S 10.1 mm Hg Aortic peak gradient, S 21.1 mm Hg VTI ratio, LVOT/AV 0.79 Aortic valve area, VTI 2 cm^2 Velocity ratio, peak, LVOT/AV 0.55 Aortic valve area, peak velocity 1.4 cm^2 Velocity ratio, mean, LVOT/AV 0.71 Aortic valve area, mean velocity 1.8 cm^2 Aortic valve area/bsa, mean velocity 1.3 cm^2/m^2 Aorta Value Reference Aortic root ID, ED 2.6 cm Ascending aorta ID, A-P, S 3.5 cm Left atrium Value Reference LA ID, A-P, ES 2.9 cm LA ID/bsa, A-P 2.1 cm/m^2 <=2.2 LA area, ES, A4C 15.8 cm^2 8.8 - 23.4 LA area, ES, A2C 14 cm^2 LA volume/bsa, ES, 1-p A4C 35 ml/m^2 LA volume, ES, 2-p 36 ml LA volume/bsa, ES, 2-p 26 ml/m^2 LA/aortic root ratio 1.12 Mitral valve Value Reference Mitral E-wave peak velocity 1.02 m/sec Mitral A-wave peak velocity 1.6 m/sec Mitral deceleration time (H) 352 ms 150 - 230 Mitral pressure half-time 102 ms Mitral peak gradient, D 4.2 mm Hg Mitral E/A ratio, peak 0.64 Mitral valve area, PHT, DP 2.2 cm^2 Pulmonary veins Value Reference Pulmonary vein peak velocity, S 0.85 m/sec Pulmonary vein peak velocity, D 0.37 m/sec Pulmonary vein velocity ratio, peak, 2.28 S/D Pulmonary vein A-wave reversal peak 0.42 m/sec velocity Tricuspid valve Value Reference Tricuspid regurg peak velocity 3.2 m/sec Tricuspid peak RV-RA gradient 41.2 mm Hg Right atrium Value Reference RA area, ES, A4C 14.6 cm^2 8.3 - 19.5 Pulmonic valve Value Reference Pulmonic peak gradient, S 5.4 mm Hg Legend: (L) and (H) alejandra values outside specified reference range. PFSH Surgical History History of bilateral tubal ligation (Acute) Social History caregiver/support person: Yes (Family checks in regularly) housing: house number of children: 6 Smoking/Tobacco Use Status: Never alcohol intake: never substance use type: does not use History History 6 Para 6 Hx # Term Pregnancies Multiple births Hx # Pregnancies Ectopic pregnancies AB induced Hx Number of Living Children 6 AB spontaneous
[2018-06-25] MEDS: hydrALAZINE 20 MG/ML VIAL 10 MG IVP (11:47)
[2018-06-25 11:53] VITALS: BP 190/72; PULSE 101; RESP 13; TEMP 36.4; O2SAT 97
--- NOTE | 2018-06-25 12:13 | CMPROGNOTE_ITS ---
Care Management Progress Note Sharda was transferred to [facility] [place] via EMS. Please refer to MD note for further information.
--- NOTE | 2018-06-25 12:13 | PDOC.CMPRO ---
Care Management Progress Note Sharda was [place] [facility] [place] Please refer to MD note for further information.
[2018-06-25 12:48] VITALS: PULSE 115
--- NOTE | 2018-06-25 13:24 | W.PM.PROGNOT ---
Date of Service Date of service: 06/25/18 Time of Service: 13:25 Assessment and Plan (1) Right upper quadrant abdominal pain of unknown etiology: Current visit: No Status: Deleted Potential for acute on chronic Cholecystitis, with concern for Cholangitis. Patient is afebrile, but receiving IV Tylenol, and now has development of significant leukocytosis. Continue Pip-Tazo, day #3, increased dose to 4.5g extended infusion. Patient is awaiting transfer to [facility] [place] for ERCP, with monitoring in ICU prior to potential return for cholecystitis. (2) Elevated troponin: Current visit: No Status: Acute Very likely demand ischemia in patient with poor clearance in setting of STANLEY. Asymptomatic without EKG changes or wall motion abnormalities on ECHO, and normal LVEF. Had been on heparin gtt. Holding off on aspirin in anticipation of surgery. Attempt reasonable blood pressure control - currently with pain contributing significantly to elevation. Initiated CCB therapy with IV Hydralazine on a prn basis. (3) Choledocholithiasis: Current visit: No Status: Acute Plan as above. (4) Hyperglycemia: Current visit: No Status: Acute HgA1C in the prediabetic range. (5) STANLEY (acute kidney injury): Current visit: No Status: Acute Improved with hydration. Likely prerenal. (6) DVT prophylaxis: Current visit: No Status: Acute SCDs (7) Advance directive on file: Current visit: No Status: Acute DNR/DNI Subjective Interval history since last seen: Very pleasant 78-year-old woman without known prior history, but without any medical care over the last 40 plus years, admitted from [facility] emergency department with a diagnosis of likely cholecystitis and potential cholangitis. Mrs. Marques was to a local corona prior to being . She has not received any medical care for some time. She began experiencing RUQ pain approximately 2 months ago, associated with meals, which has intensified progressively. Her symptoms included nausea, vomiting, increasingly poor oral intake, and weakness. She also began experiencing diarrhea. On the morning of admission she was unable to get out of bed. She was transported to the ED by EMS, and further work-up was significant for a elevation in WBC, creatinine, troponin, and LFTs. Subsequent imaging showed gallstones, calcification of the fundus of the gallbladder, and a left adrenal nodule. A subsequent ultrasound confirmed cholelithiasis, along with stones in the Common Bile Duct causing mild dilation. Subsequent MRCP confirmed choledocholithiasis as well as CBD Dilation. Mrs. Marques was initiated on antibiotic therapy and admitted. Her troponin and creatinine improved with hydration overnight, and a subsequent ECHO showed a normal LVEF with normal wall motion. This morning her creatinine continues to improve with hydration. However, her LFTs have worsened slightly, and she has developed a significant leukocytosis. The patient's pain had intensified yesterday and continues currently. Her blood pressure remains elevated as well. No other events reported. She remains afebrile. Exam Narrative Exam Narrative: General: Patient appears uncomfortable, ill-appearing. AAOX3. Neck: Supple CV: Regular, tachycardic, S1S2, No rubs, murmurs, or gallops. Pulmonary: Clear to auscultation bilaterally, no crackles, wheezing, or rhonchi Abdomen: + Bowel Sounds, abdomen is soft but exam limited due to pain. + Guarding, especially over RUQ, with significant pain on minimal palpation. Nondistended Vascular: No lower extremity edema Psych: Normal mood and affect. Objective Objective Clinical Data: Abnormal lab results 06/25/18 06/25/18 06/25/18 Range/Units 06:50 06:50 06:50 WBC 26.41 H* D (4.4-10.8) k/cumm RDW 15.5 H (11.7-14.6) % Absolute Neutrophils 23.50 H (1.2-6.7) k/cumm Absolute Monocytes 1.06 H (0.11-0.7) k/cumm APTT 48.8 H (21.0-31.4) sec Carbon Dioxide 19.9 L (21.0-32.0) mmol/L Anion Gap 15.1 H (3-11) mmol/L BUN 26 H (7-18) mg/dL Creatinine 1.22 H (0.55-1.02) mg/dL Calcium 8.2 L (8.5-10.1) mg/dL Magnesium 1.7 L (1.8-2.4) mg/dL Total Bilirubin 3.5 H (0.2-1.0) mg/dL AST 103 H (15-37) U/L ALT 98 H (12-78) U/L Alkaline Phosphatase 120 H (46-116) U/L Total Protein 5.9 L (6.4-8.2) g/dL Albumin 2.8 L (3.4-5.0) g/dL Vital Signs Temperature 36.4 C L 06/25/18 11:53 Temperature Source Tympanic 06/25/18 11:53 Pulse 101 H 06/25/18 11:53 Pulse Rhythm Regular 06/25/18 12:26 Pulse 86 06/23/18 12:10 Respiratory Rate 13 06/25/18 11:53 Respiratory Effort 06/25/18 12:26 Respiratory Depth Normal 06/25/18 12:26 Respiratory Pattern Normal 06/25/18 12:26 Blood Pressure 190/72 H 06/25/18 11:53 Blood Pressure Mean 98 06/23/18 12:01 Pulse Oximetry 97 06/25/18 11:53 Oxygen Delivery Method Room Air 06/25/18 11:53 Oxygen Flow Rate 0 06/25/18 11:53 Pain Level 8 06/25/18 11:46 Comment 06/24/18 03:45 Intake & Output 06/24/18 06/25/18 06/25/18 23:59 11:59 23:59 Intake Total 1657.792 / 4365.334 1529.999 / 1529.999 Output Total 750 / 1400 250 / 500 250 / 500 Balance 907.792 / 2965.334 1279.999 / 1029.999 -250 / 1029.999 Intake: IV 1087.792 / 3385.334 1469.999 / 1469.999 Oral 570 / 980 60 / 60 Output: Urine 750 / 1400 250 / 500 250 / 500 Other: Urine Color Light Nicole Dark Nicole Dark Nicole Urine Appearance Clear Clear Clear Laboratory Results WBC 26.41 k/cumm (4.4-10.8) H* D 06/25/18 06:50 RBC 4.67 m/cumm (4.00-5.20) 06/25/18 06:50 Hgb 13.0 g/dL (12.0-15.5) 06/25/18 06:50 Hct 38.5 % (36.0-46.0) 06/25/18 06:50 MCV 82.4 fL (80-95) 06/25/18 06:50 MCH 27.8 pg (27.0-33.0) 06/25/18 06:50 MCHC 33.8 g/dL (32.0-36.0) 06/25/18 06:50 RDW 15.5 % (11.7-14.6) H 06/25/18 06:50 Plt Count 279 x1000/uL (130-400) 06/25/18 06:50 MPV 10.6 fL (8.0-11.0) 06/25/18 06:50 Immature Gran % 0.0 06/25/18 06:50 Neutrophils % 87.0 06/25/18 06:50 Lymphocytes % 7.0 06/25/18 06:50 Monocytes % 4.0 06/25/18 06:50 Eosinophils % 0.0 06/25/18 06:50 Basophils % 0.0 06/25/18 06:50 Absolute Neutrophils 23.50 k/cumm (1.2-6.7) H 06/25/18 06:50 Band Neutrophils 2.0 % 06/25/18 06:50 Absolute Lymphocytes 1.85 k/cumm (1.2-3.4) 06/25/18 06:50 Absolute Monocytes 1.06 k/cumm (0.11-0.7) H 06/25/18 06:50 Absolute Eosinophils 0.00 k/cumm (0.0-0.7) 06/25/18 06:50 Absolute Basophils 0.00 k/cumm (0.0-0.2) 06/25/18 06:50 Differential Comment Manual differential 06/25/18 06:50 RBC Morphology Normal 06/25/18 06:50 APTT 48.8 sec (21.0-31.4) H 06/25/18 06:50 Sodium 136 mmol/L (136-145) 06/25/18 06:50 Potassium 3.5 mmol/L (3.5-5.1) 06/25/18 06:50 Chloride 101 mmol/L (98-107) 06/25/18 06:50 Carbon Dioxide 19.9 mmol/L (21.0-32.0) L 06/25/18 06:50 Anion Gap 15.1 mmol/L (3-11) H 06/25/18 06:50 BUN 26 mg/dL (7-18) H 06/25/18 06:50 Creatinine 1.22 mg/dL (0.55-1.02) H 06/25/18 06:50 Estimated GFR/1.73 m2 42.63 (mL/min/1.73m2) 06/25/18 06:50 Glucose 85 mg/dL (70-100) D 06/25/18 06:50 Hemoglobin A1c 6.4 % (4.5-6.2) H 06/24/18 06:55 Lactate 1.2 mmol/L (0.6-1.4) 06/25/18 09:55 Calcium 8.2 mg/dL (8.5-10.1) L 06/25/18 06:50 Magnesium 1.7 mg/dL (1.8-2.4) L 06/25/18 06:50 Total Bilirubin 3.5 mg/dL (0.2-1.0) H 06/25/18 06:50 AST 103 U/L (15-37) H 06/25/18 06:50 ALT 98 U/L (12-78) H 06/25/18 06:50 Alkaline Phosphatase 120 U/L (46-116) H 06/25/18 06:50 Creatine Kinase 74 U/L (26-192) 06/23/18 09:30 Troponin I 0.47 ng/mL (0.00-0.06) H 06/24/18 06:55 Total Protein 5.9 g/dL (6.4-8.2) L 06/25/18 06:50 Albumin 2.8 g/dL (3.4-5.0) L 06/25/18 06:50 Lipase 100 U/L (73-393) 06/23/18 09:00 Urine Color Yellow (Yellow) 06/23/18 13:18 Urine Clarity Clear 06/23/18 13:18 Urine pH 7.0 (5-8) 06/23/18 13:18 Ur Specific Verner 1.025 (1.005-1.025) 06/23/18 13:18 Urine Protein >=300 mg/dL (Negative) H 06/23/18 13:18 Urine Ketones Negative mg/dL (Negative) 06/23/18 13:18 Urine Blood Trace-lysed (Negative) H 06/23/18 13:18 Urine Nitrite Negative (Negative) 06/23/18 13:18 Urine Bilirubin Negative (Negative) 06/23/18 13:18 Urine Urobilinogen 1.0 EU/dL (Up TO 0.2) H 06/23/18 13:18 Ur Leukocyte Esterase Negative (Negative) 06/23/18 13:18 Urine RBC 0-2 (0-2) 06/23/18 13:18 Urine WBC 0-2 HPF (0-5) 06/23/18 13:18 Ur Epithelial Cells Negative HPF (Negative) 06/23/18 13:18 Urine Crystals Negative HPF (Negative) 06/23/18 13:18 Urine Bacteria Rare HPF (Negative) 06/23/18 13:18 Urine Casts Negative LPF (Negative) 06/23/18 13:18 Urine Mucus Negative (Negative) 06/23/18 13:18 Urine Other Negative (Negative) 06/23/18 13:18 Ur Culture Indicated? No 06/23/18 13:18 Urine Glucose 250 mg/dL (Negative) H 06/23/18 13:18
--- NOTE | 2018-06-26 12:52 | PDOC.CMPRO ---
Care Management Progress Note CM received call from Sharda Baez's daughter reporting [place] [facility] [place] support with PCP assignment as discussed when Sharda was inpatient at [facility]. CM called [facility] to discuss new PCP assignment via ED PCP assignment protocol. Emma reported Aditya Son NP was currently accepting new patients and offered appointment for 07/15/18@1020. CM faxed pertinent information to [phone]. LUCINDA spoke with Noa; [facility] CM working with Sharda and her family and provided the above information. Noa reported she anticipates Sharda returning home with new [facility] supports including RN for new medication management. LUCINDA spoke with JAYASHREE Emanuel and notified that no call back had been received by this technical document writer from BERNICE Falk coordinator at [facility] as LUCINDA had been directed by Maryan to contact for medicare insurance coordination. Sabrina agreed to outreach to Ronak to relay that Sharda likely has MCR A coverage but will need B for hospitalization and new PCP assignment. CM left VM at [facility] notifying of pending referral and PCP assignment. LUCINDA then spoke with Chayito Peralta who reported MCR part A should cover [facility]/RN.
--- NOTE | 2018-06-26 12:54 | CMPROGNOTE_ITS ---
Care Management Progress Note CM received call from Sharda Baez's daughter reporting Sharda was currently [place] [facility] and requesting support with PCP assignment as discussed when Sharda was inpatient at [facility]. CM called [facility] to discuss new PCP assignment via ED PCP assignment protocol. Emma reported Aditya Son NP was currently accepting new patients and offered appointment for 07/15/18@1020. CM faxed pertinent information to [phone]. LUCINDA spoke with Noa; [facility] CM working with Sharda and her family and provided the above information. Noa reported she anticipates Sharda returning home with new [facility] supports including RN for new medication management. LUCINDA spoke with JAYASHREE Emanuel and notified that no call back had been received by this service writer from BERNICE Falk coordinator at [facility] as LUCINDA had been directed by Maryan to contact for medicare insurance coordination. Sabrina agreed to outreach to Ronak to relay that Sharda likely has MCR A coverage but will need B for hospitalization and new PCP assignment. CM left VM at [facility] notifying of pending referral and PCP assignment. LUCINDA then spoke with Chayito Peralta who reported MCR part A should cover [facility]/RN.
== END 2018-06-25 13:00 | disposition short-term general hospital (02) | DRG 445 ==
LOC: ER 14:46 → MS 15:37
PROVIDERS: Internal Medicine; Admitting Provider Surgery; Emergency Provider Emergency Medicine; Visit Provider Surgery
DX: K80.33 Calculus of bile duct with acute cholangitis with obstruction (principal); I24.8 Other forms of acute ischemic heart disease; N17.9 Acute kidney failure, unspecified; I10 Essential (primary) hypertension; R73.03 Prediabetes; Z66 Do not resuscitate; I51.7 Cardiomegaly
CPT/HCPCS: 36415; 36569; 80053; 82550; 83690; 87040; 93005; 93306; 96361; 96374; 99223; 99232; 99233; 99239; 99254; 99255; 99285; 70450; 74176; 74181; 76705; 81003; 81015; 83036; 83605; 83735; 84484; 85025; 85730; 93010; J0131; J0360; J2405; J2543; J3475; J3480; J3490

== ENCOUNTER 2018-07-20 15:23 | Emergency (ER) | payer MEDICARE, SELFPAY ==
[2018-07-20 15:29] VITALS: BP 155/64; PULSE 76; RESP 18; TEMP 36.6; O2SAT 99
--- NOTE | 2018-07-20 16:10 | W.ED.GENAD ---
Discharge Plan Disposition Patient Disposition: [facility] Condition: Serious Discharge Details Chief Complaint: Abd Prob Clinical Impression: Acute cholecystitis, Porcelain gallbladder, Pancreatic mass Primary Care Provider: None,None ED Provider: Richard Garza Home Meds and New Rx's Prescriptions: No Action amlodipine 5 mg Tablet 5 mg PO DAILY Qty: 0 RF: 0 hydralazine 20 mg/mL Solution 10 mg IVP Q4H PRN PRNQty: 0.5 RF: 0 Novolog Flexpen U-100 Insulin 100 unit/mL Insulin Pen subcut 0800,1200,1700 Qty: 0 RF: 0 morphine 4 mg/mL Solution 2 - 4 mg IVP Q4H PRN PRNQty: 0 RF: 0 promethazine 25 mg/mL Solution 12.5 mg IM/IV Q4H PRN PRNQty: 0 RF: 0 ranitidine HCl 50 mg/2 mL (25 mg/mL) Solution 50 mg IVP Q12H Qty: 0 RF: 0 aspirin [Aspirin Low Dose] 81 mg Tablet,Delayed Release (Dr/Ec) 81 mg PO DAILY RF: 0 Medical Decision Making 16:45 --78-year-old female with history of choledocholithiasis, recent ascending cholangitis treated with sphincterotomy and antibiotics, porcelain gallbladder, and STEMI, here with return of abdominal pain. Tender diffusely but worse in the right upper quadrant. Screening EKG was reviewed and interpreted by me: Normal sinus rhythm 74 bpm, normal axis, no STEMI, nondiagnostic. Concern for cholecystitis. Patient NPO. Labs reviewed and AST and ALT normal. Total bilirubin normal. Will obtain right upper quadrant ultrasound. Patient has had a decrease in Hb from 13 (06/25/18) to 10. Unclear etiology. I spoke with Dr. Lomas, on-call surgery, about the patient. Plan is to follow-up on imaging at this time. 17:02 -- Gallstones present. One in neck. Duct nl. 4mm calcified wall. No perichol fluid. Given drop in Hb and diffuse tenderness, consider other etiology for pain inclduing ischemia colitis plan to obtain stat CT abd and lactate. 18:45 --CT of the abdomen pelvis interpreted by radiology:IMPRESSION: 1. 3.7 x 2.6 cm Hypoattenuation in the head of the pancreas and uncinate process (4:27- 30). May represent pancreatitis in the appropriate clinical setting. Differential includes ill-defined mass. 2. Gallstones in a contracted gallbladder. Pericholecystic fluid. Recommend further evaluation for acute cholecystitis if clinically indicated. 3. Broad-based disc bulge at L4/L5 may represent degenerative disc disease. I spoke with Dr. Ramsey who recommends transfer to [facility] given complexity of illness. She does not feel comfortable treating the patient here surgically. I have initiated Zosyn IV. [place] [facility] [place] to request emergent transfer. Awaiting callback. 20:30 --I spoke with Dr. Heart who will accept the patient in transfer at [facility]. HPI General Mode of arrival: ambulatory. Date/Time Provider Initiated Documentation: 07/20/18 15:45. Limitations to Documentation: no limitations. Information obtained by: patient. HPI Narrative: 78-year-old female with history of choledocholithiasis, cholangitis, porcelain gallbladder, recently treated at [facility] earlier this month for ascending cholangitis and had ERCP with sphincterotomy and antibiotics, as well as an STEMI, presents today with chief complaint of abdominal pain. Abdominal pain started about 30 minutes prior to arrival. Pain is severe. Pain is localized to her right upper quadrant. No associated fever. No associated nausea. No modifiers to symptoms. Patient last ate some [employer] fries and chicken fingers around noon today. Related Data Home Medications Medication Instructions Recorded Confirmed amlodipine 5 mg PO DAILY #0 tab 06/25/18 hydralazine 10 mg IVP Q4H PRN PRN #0.5 ml 06/25/18 insulin aspart U-100 [Novolog 0 units SUBCUT 0800,1200,1700 #0 ml 06/25/18 Flexpen U-100 Insulin] morphine 2 - 4 mg IVP Q4H PRN PRN #0 ml 06/25/18 promethazine 12.5 mg IM/IV Q4H PRN PRN #0 ml 06/25/18 ranitidine HCl 50 mg IVP Q12H #0 ml 06/25/18 aspirin [Aspirin Low Dose] 81 mg PO DAILY 07/20/18 07/20/18 Previous Rx's Medication Instructions Recorded amlodipine 5 mg PO DAILY #0 tab 06/25/18 hydralazine 10 mg IVP Q4H PRN PRN #0.5 ml 06/25/18 insulin aspart U-100 [Novolog 0 units SUBCUT 0800,1200,1700 #0 ml 06/25/18 Flexpen U-100 Insulin] morphine 2 - 4 mg IVP Q4H PRN PRN #0 ml 06/25/18 promethazine 12.5 mg IM/IV Q4H PRN PRN #0 ml 06/25/18 ranitidine HCl 50 mg IVP Q12H #0 ml 06/25/18 Allergies Allergy/AdvReac Type Severity Reaction Status Date / Time No Known Allergies Allergy Unverified 07/20/18 15:33 General Stated Complaint: Abd Prob TAMMY: 3 Review of Systems Review of Systems All systems reviewed & are unremarkable except as noted in HPI and below Constitutional Denies fever(s) Gastrointestinal Reports as per HPI PFSH Medical History Choledocholithiasis (Chronic) NSTEMI (non-ST elevated myocardial infarction) (Chronic) Porcelain gallbladder (Chronic) Surgical History History of bilateral tubal ligation (Acute) Social History caregiver/support person: Yes (Family checks in regularly) housing: house number of children: 6 Smoking/Tobacco Use Status: Never alcohol intake: never substance use type: does not use History History 6 Para 6 Hx # Term Pregnancies Multiple births Hx # Pregnancies Ectopic pregnancies AB induced Hx Number of Living Children 6 AB spontaneous Exam Const General: cooperative and no acute distress HENMT Head: normocephalic and atraumatic Mouth: moist mucous membranes Eyes Conjunctivae: normal conjunctivae Sclera: normal sclerae Neck Neck: trachea midline and supple Resp Auscultation: clear to auscultation bilaterally, no rales, no rhonchi and no wheezes Cardio Jugular venous pressure: no JVD Rate: regular rate and not tachycardic Rhythm: regular rhythm GI Palpation: soft, not firm, no guarding, no masses, not rigid and tender (Diffuse tenderness worse right upper quadrant with rebound) Auscultation: normal bowel sounds Skin General skin exam: no rashes or lesions noted Neuro General: alert, awake, oriented x3 and tone normal Extrem General: no edema Psych Appearance: grossly normal Course Vital Signs Temperature 36.6 C 07/20/18 15:29 Pulse 76 07/20/18 15:29 Respiratory Rate 18 07/20/18 15:29 Blood Pressure 155/64 H 07/20/18 15:29 Pulse Oximetry 99 07/20/18 15:29 Temperature 36.6 C 07/20/18 15:29 Temperature Source Temporal Artery Scan 07/20/18 15:29 Pulse 76 07/20/18 15:29 Respiratory Rate 18 07/20/18 15:29 Respiratory Effort Non-Labored 07/20/18 15:31 Blood Pressure 155/64 H 07/20/18 15:29 Blood Pressure Position Sitting 07/20/18 15:29 Pulse Oximetry 99 07/20/18 15:29 Oxygen Delivery Method Room Air 07/20/18 15:29 Oxygen Flow Rate 0 07/20/18 15:29 Pain Level 8 07/20/18 15:29
--- NOTE | 2018-07-20 16:15 | DI.US_ITS ---
SYMPTOM/DIAGNOSIS: ABDOMINAL PAIN, RUQ ABDOMEN ULTRASOUND: Comparison is made with 23 Jun 2018. The liver is normal in echogenicity. There is an elongated right lobe of the liver. Stones and sludge are noted in the gallbladder. The gallbladder appears contracted. No pericholecystic fluid is seen. No sonographic Elaine's sign was elicited. There is a question of a 4 mm stone in the neck of the gallbladder which was nonmobile. Calcification is seen in the wall of the gallbladder. There is no biliary dilatation on the current exam. The kidneys, spleen and aorta and unremarkable. No abnormality is visible in the pancreas. IMPRESSION: Cholelithiasis. Question of a stone in the gallbladder neck. There is no evidence of acute cholecystitis.
[2018-07-20 16:27] LABS: Abs Immature Grans 0.01 k/cumm (0.0-0.09); Absolute Basophil Count 0.05 k/cumm (0.0-0.2); Absolute Eosinophil Count 0.34 k/cumm (0.0-0.7); Absolute Lymphocyte Count 1.76 k/cumm (1.2-3.4); Absolute Monocyte Count 0.57 k/cumm (0.11-0.7); Absolute Neutrophil Count 2.09 k/cumm (1.2-6.7); Eosinophils % 7.1; HCT 30.6 % (36.0-46.0); HGB 10.1 g/dL (12.0-15.5); Immature Grans % 0.2; Lymphocytes % 36.5; Mean Corpuscular Hemoglobin 28.5 pg (27.0-33.0); Mean Corpuscular Volume 86.2 fL (80-95); Mean Platelet Volume 10.6 fL (8.0-11.0); Monocytes % 11.8; Neutrophils % 43.4; Platelet Count 286 x1000/uL (130-400); RBC 3.55 m/cumm (4.00-5.20); RBC Distribution Width 15.2 % (11.7-14.6); White Blood Cell Count 4.82 k/cumm (4.4-10.8)
[2018-07-20 16:42] LABS: ALT 23 U/L (12-78); AST 18 U/L (15-37); Albumin 3.1 g/dL (3.4-5.0); Alkaline Phosphatase 153 U/L (46-116); Anion Gap 11.5 mmol/L (3-11); BUN 16 mg/dL (7-18); Bilirubin, Total 0.3 mg/dL (0.2-1.0); CO2 26.5 mmol/L (21.0-32.0); CREATININE 0.91 mg/dL (0.55-1.02); Calcium 9.1 mg/dL (8.5-10.1); Chloride 103 mmol/L (98-107); Estimated GFR 59.79 (mL/min/1.73m2); Glucose 123 mg/dL (70-100); Lipase 239 U/L (73-393); Potassium 3.5 mmol/L (3.5-5.1); Sodium 141 mmol/L (136-145); Total Protein 6.9 g/dL (6.4-8.2)
[2018-07-20 16:43] LABS: Troponin I < 0.02 ng/mL (0.00-0.06)
--- NOTE | 2018-07-20 17:01 | ED.GENADUL_ITS ---
Discharge Plan Disposition Patient Disposition: [facility] Condition: Serious Discharge Details Chief Complaint: Abd Prob Clinical Impression: Acute cholecystitis, Porcelain gallbladder, Pancreatic mass Primary Care Provider: None,None ED Provider: Richard Garza Home Meds and New Rx's Prescriptions: No Action amlodipine 5 mg Tablet 5 mg PO DAILY Qty: 0 RF: 0 hydralazine 20 mg/mL Solution 10 mg IVP Q4H PRN PRNQty: 0.5 RF: 0 Novolog Flexpen U-100 Insulin 100 unit/mL Insulin Pen subcut 0800,1200,1700 Qty: 0 RF: 0 morphine 4 mg/mL Solution 2 - 4 mg IVP Q4H PRN PRNQty: 0 RF: 0 promethazine 25 mg/mL Solution 12.5 mg IM/IV Q4H PRN PRNQty: 0 RF: 0 ranitidine HCl 50 mg/2 mL (25 mg/mL) Solution 50 mg IVP Q12H Qty: 0 RF: 0 aspirin [Aspirin Low Dose] 81 mg Tablet,Delayed Release (Dr/Ec) 81 mg PO DAILY RF: 0 Medical Decision Making 16:45 --78-year-old female with history of choledocholithiasis, recent ascending cholangitis treated with sphincterotomy and antibiotics, porcelain gallbladder, and STEMI, here with return of abdominal pain. Tender diffusely but worse in the right upper quadrant. Screening EKG was reviewed and interpreted by me: Normal sinus rhythm 74 bpm, normal axis, no STEMI, nondiagnostic. Concern for cholecystitis. Patient NPO. Labs reviewed and AST and ALT normal. Total bilirubin normal. Will obtain right upper quadrant ultrasound. Patient has had a decrease in Hb from 13 (06/25/18) to 10. Unclear etiology. I spoke with Dr. Lomas, on-call surgery, about the patient. Plan is to follow-up on imaging at this time. 17:02 -- Gallstones present. One in neck. Duct nl. 4mm calcified wall. No perichol fluid. Given drop in Hb and diffuse tenderness, consider other etiology for pain inclduing ischemia colitis plan to obtain stat CT abd and lactate. 18:45 --CT of the abdomen pelvis interpreted by radiology:IMPRESSION: 1. 3.7 x 2.6 cm Hypoattenuation in the head of the pancreas and uncinate process (4:27- 30). May represent pancreatitis in the appropriate clinical setting. Differential includes ill-defined mass. 2. Gallstones in a contracted gallbladder. Pericholecystic fluid. Recommend further evaluation for acute cholecystitis if clinically indicated. 3. Broad-based disc bulge at L4/L5 may represent degenerative disc disease. I spoke with Dr. Ramsey who recommends transfer to [facility] given complexity of illness. She does not feel comfortable treating the patient here surgically. I have initiated Zosyn IV. I called the [facility] transfer center to request emergent transfer. Awaiting callback. 20:30 --I spoke with Dr. Heart who will accept the patient in [place] [facility] [place] HPI General Mode of arrival: ambulatory . Date/Time Provider Initiated Documentation: 07/20/18 15:45 . Limitations to Documentation: no limitations . Information obtained by: patient . HPI Narrative: 78-year-old female with history of choledocholithiasis, cholangitis, porcelain gallbladder, recently treated at [facility] earlier this month for ascending cholangitis and had ERCP with sphincterotomy and antibiotics, as well as an STEMI, presents today with chief complaint of abdominal pain. Abdominal pain started about 30 minutes prior to arrival. Pain is severe. Pain is localized to her right upper quadrant. No associated fever. No associated nausea. No modifiers to symptoms. Patient last ate some [email or web address] fries and chicken fingers around noon today. Related Data Home Medications Medication Instructions Recorded Confirmed amlodipine 5 mg PO DAILY #0 tab 06/25/18 hydralazine 10 mg IVP Q4H PRN PRN #0.5 ml 06/25/18 insulin aspart U-100 [Novolog 0 units SUBCUT 0800,1200,1700 #0 ml 06/25/18 Flexpen U-100 Insulin] morphine 2 - 4 mg IVP Q4H PRN PRN #0 ml 06/25/18 promethazine 12.5 mg IM/IV Q4H PRN PRN #0 ml 06/25/18 ranitidine HCl 50 mg IVP Q12H #0 ml 06/25/18 aspirin [Aspirin Low Dose] 81 mg PO DAILY 07/20/18 07/20/18 Previous Rx's Medication Instructions Recorded amlodipine 5 mg PO DAILY #0 tab 06/25/18 hydralazine 10 mg IVP Q4H PRN PRN #0.5 ml 06/25/18 insulin aspart U-100 [Novolog 0 units SUBCUT 0800,1200,1700 #0 ml 06/25/18 Flexpen U-100 Insulin] morphine 2 - 4 mg IVP Q4H PRN PRN #0 ml 06/25/18 promethazine 12.5 mg IM/IV Q4H PRN PRN #0 ml 06/25/18 ranitidine HCl 50 mg IVP Q12H #0 ml 06/25/18 Allergies Allergy/AdvReac Type Severity Reaction Status Date / Time No Known Allergies Allergy Unverified 07/20/18 15:33 General Stated Complaint: Abd Prob TAMMY: 3 Review of Systems Review of Systems All systems reviewed & are unremarkable except as noted in HPI and below Constitutional Denies fever(s) Gastrointestinal Reports as per HPI PFSH Medical History Choledocholithiasis (Chronic) NSTEMI (non-ST elevated myocardial infarction) (Chronic) Porcelain gallbladder (Chronic) Surgical History History of bilateral tubal ligation (Acute) Social History caregiver/support person: Yes (Family checks in regularly) housing: house number of children: 6 Smoking/Tobacco Use Status: Never alcohol intake: never substance use type: does not use History History 6 Para 6 Hx # Term Pregnancies Multiple births Hx # Pregnancies Ectopic pregnancies AB induced Hx Number of Living Children 6 AB spontaneous Exam Const General: cooperative and no acute distress HENMT Head: normocephalic and atraumatic Mouth: moist mucous membranes Eyes Conjunctivae: normal conjunctivae Sclera: normal sclerae Neck Neck: trachea midline and supple Resp Auscultation: clear to auscultation bilaterally, no rales, no rhonchi and no wheezes Cardio Jugular venous pressure: no JVD Rate: regular rate and not tachycardic Rhythm: regular rhythm GI Palpation: soft, not firm, no guarding, no masses, not rigid and tender (Diffuse tenderness worse right upper quadrant with rebound) Auscultation: normal bowel sounds Skin General skin exam: no rashes or lesions noted Neuro General: alert, awake, oriented x3 and tone normal Extrem General: no edema Psych Appearance: grossly normal Course Vital Signs Temperature 36.6 C 07/20/18 15:29 Pulse 76 07/20/18 15:29 Respiratory Rate 18 07/20/18 15:29 Blood Pressure 155/64 H 07/20/18 15:29 Pulse Oximetry 99 07/20/18 15:29 Temperature 36.6 C 07/20/18 15:29 Temperature Source Temporal Artery Scan 07/20/18 15:29 Pulse 76 07/20/18 15:29 Respiratory Rate 18 07/20/18 15:29 Respiratory Effort Non-Labored 07/20/18 15:31 Blood Pressure 155/64 H 07/20/18 15:29 Blood Pressure Position Sitting 07/20/18 15:29 Pulse Oximetry 99 07/20/18 15:29 Oxygen Delivery Method Room Air 07/20/18 15:29 Oxygen Flow Rate 0 07/20/18 15:29 Pain Level 8 07/20/18 15:29
--- NOTE | 2018-07-20 17:04 | DI.CT_ITS ---
SYMPTOM/DIAGNOSIS: ABDOMINAL PJAIN, DIFFUSE TENDERNESS, HB DROP CT ABDOMEN AND PELVIS: Comparison is made with 23 Jun 2018. Images were performed from the lung bases through the ischial tuberosities after IV contrast. The exam is quite limited by patient motion. Stones are again noted in the gallbladder. There is no abnormal gallbladder wall thickening. The previously noted biliary dilatation is no longer seen. There is now a question of an area of low attenuation in the uncinate process of the pancreas. However, there is a large amount of motion in this area. Findings could indicate pancreatitis. There is no evidence of hydronephrosis. Nonobstructing stones are seen in the upper pole of the right kidney. There is no bowel dilatation or inflammatory change. The uterus and bladder are unremarkable. Degenerative changes and scoliosis are seen in the spine. The lung bases show mild dependent changes. IMPRESSION: Cholelithiasis. No evidence of biliary dilatation or abnormal gallbladder distension. Question of area of decreased attenuation in the head of the pancreas could indicate pancreatitis. Clinical correlation is recommended.
--- NOTE | 2018-07-20 17:31 | DI.VRAD_ITS ---
Addendum created by William Aguilera MD on 07/20/2018 5:43:37 PM EST THIS REPORT CONTAINS FINDINGS THAT MAY BE CRITICAL TO PATIENT CARE. The findings were verbally communicated via telephone conference with Richard Garza at 5:43 PM EST on 07/20/2018. The findings were acknowledged and understood. Initial report created on 07/20/2018 5:31:20 PM EST EXAM: US Abdomen Complete EXAM DATE/TIME: 07/20/2018 4:58 PM CLINICAL HISTORY: 78 years old, female; Signs and symptoms; Other: Ruq pain; HX of cholelithiasis, choledocholithiasis and porcelain gallbladder on ct/us 06/23/18, S/P ercp TECHNIQUE: Real-time ultrasound of the abdomen with image documentation. COMPARISON: US abdomen limited 06/23/2018 12:29 PM FINDINGS: Liver: Hepatomegaly 19 cm Gallbladder: The gallbladder is contracted and contains sludge or gallstones. Gallbladder wall appears echogenic and may be calcified. It measures 4.2 mm. 4 mm gallstone in the neck of the gallbladder. Common bile duct: Common bile duct measures 4.4 mm Pancreas: Visualized pancreas is unremarkable. Right kidney: Right kidney measures 10.8 cm Left kidney: Left kidney measures 10.4 cm Spleen: 9.12 cm No splenomegaly. Aorta: Proximal aorta 2.3 cm Inferior vena cava: Normal IVC Portal venous: Antegrade flow in the portal vein IMPRESSION: 1. The gallbladder is contracted and contains sludge or gallstones. 2. Gallbladder wall appears echogenic and may be calcified. It measures 4.2 mm. 3. 4 mm gallstone in the neck of the gallbladder. Findings may reflect acute cholecystitis Dictated and Authenticated by: William Aguilera MD. Ordering:GARY Ramos MD
[2018-07-20] MEDS: Lactated Ringers 1,000 ML 125 ML IV ×2 (17:40→20:54)
[2018-07-20 17:41] LABS: Lactate-non-spesis 0.6 mmol/l (0.6-1.4)
[2018-07-20] MEDS: Normal Saline Flush 10 ML SYR IVP (17:41)
[2018-07-20] MEDS: Omnipaque 350 MG/ML 100 ML BTL IJ (18:20)
--- NOTE | 2018-07-20 18:38 | DI.VRAD_ITS ---
EXAM: CT Abdomen and Pelvis With Contrast EXAM DATE/TIME: 07/20/2018 5:06 PM CLINICAL HISTORY: 78 years old, female; Pain; Abdominal pain; Generalized; Additional info: Abdominal pain, diffuse tenderness, hb drop TECHNIQUE: Axial computed tomography images of the abdomen and pelvis with intravenous contrast. Coronal and sagittal reformatted images were created and reviewed. COMPARISON: CT Private^ROUTINE ABDOMEN PELVIS WITHOUT (Adult) 06/23/2018 10:53 AM FINDINGS: Lower thorax: There is calcification of the mitral valve annulus. Bibasilar atelectasis. ABDOMEN: Liver: Hepatomegaly 19 cm Gallbladder and bile ducts: Gallstones in a contracted gallbladder. Pericholecystic fluid. Pancreas: 3.7 x 2.6 cm Hypoattenuation in the head of the pancreas and uncinate process (4:27- 30). May represent pancreatitis in the appropriate clinical setting. Differential includes ill-defined mass. Spleen: Normal. No splenomegaly. Adrenals: Normal. No mass. Kidneys and ureters: Nonobstructing right renal calculus Stomach and bowel: Normal. No obstruction. No mucosal thickening. Appendix: No evidence of appendicitis. PELVIS: Bladder: Unremarkable as visualized. Reproductive: Unremarkable as visualized. ABDOMEN and PELVIS: Intraperitoneal space: Normal. No free air. No significant fluid collection. Bones/joints: Broad-based disc bulge at L4/L5 may represent degenerative disc disease. Soft tissues: Unremarkable. Vasculature: Normal. No abdominal aortic aneurysm. Lymph nodes: Small retroperitoneal nodes IMPRESSION: 1. 3.7 x 2.6 cm Hypoattenuation in the head of the pancreas and uncinate process (4:27- 30). May represent pancreatitis in the appropriate clinical setting. Differential includes ill-defined mass. 2. Gallstones in a contracted gallbladder. Pericholecystic fluid. Recommend further evaluation for acute cholecystitis if clinically indicated. 3. Broad-based disc bulge at L4/L5 may represent degenerative disc disease. Dictated and Authenticated by: William Aguilera MD. Ordering:GARY Ramos MD
[2018-07-20 18:40] VITALS: BP 142/55; PULSE 71; RESP 18; TEMP 36.9; O2SAT 96
[2018-07-20] MEDS: PIPERACILLIN/TAZO 4.5 GM in Normal Saline 100 ML IVPB (18:47)
[2018-07-20 19:57] VITALS: BP 136/60; PULSE 72; TEMP 36.6; O2SAT 94
[2018-07-20 21:05] VITALS: BP 127/60; PULSE 70; RESP 18; TEMP 36.8; O2SAT 97
== END 2018-07-20 21:03 | disposition short-term general hospital (02) ==
PROVIDERS: Emergency Provider Student in an Organized Health Care Education/Training Program
DX: K82.8 Other specified diseases of gallbladder (principal); K80.00 Calculus of gallbladder with acute cholecystitis without obstruction; R93.3 Abnormal findings on diagnostic imaging of other parts of digestive tract
CPT/HCPCS: 36415; 80053; 83690; 86850; 86900; 86901; 93005; 96361; 96365; 99285; 74177; 76700; 83605; 84484; 85025; 93010; J2543; J3490

== ENCOUNTER 2020-05-08 19:08 | Observation (INO) | payer MEDICARE, SELFPAY ==
[2020-05-08 19:26] VITALS: BP 209/70; PULSE 112; RESP 13; TEMP 37.3; O2SAT 96
--- NOTE | 2020-05-08 19:30 | W.ED.GENAD ---
Discharge Plan Disposition Patient Disposition: [facility] Condition: Fair Discharge Details Clinical Impression: Colitis Primary Care Provider: None,None ED Provider: Mónica Cooper Home Meds and New Rx's Prescriptions: No Action amlodipine 5 mg Tablet 5 mg PO DAILY Qty: 0 RF: 0 hydralazine 20 mg/mL Solution 10 mg IVP Q4H PRN PRNQty: 0.5 RF: 0 Novolog Flexpen U-100 Insulin 100 unit/mL Insulin Pen 0 units subcut 0800,1200,1700 Qty: 0 RF: 0 morphine 4 mg/mL Solution 2 - 4 mg IVP Q4H PRN PRNQty: 0 RF: 0 promethazine 25 mg/mL Solution 12.5 mg IM/IV Q4H PRN PRNQty: 0 RF: 0 ranitidine HCl 50 mg/2 mL (25 mg/mL) Solution 50 mg IVP Q12H Qty: 0 RF: 0 aspirin [Aspirin Low Dose] 81 mg Tablet,Delayed Release (Dr/Ec) 81 mg PO DAILY RF: 0 Medical Decision Making patient presents with diarrhea illness with abdominal pain and nausea., IV established given NS 1000 ml bolus and zofran 4 mg IVP, sent cbc, cmp, mag level with K 3.1 mag 1.7 and elevated wbc at 15.7, rest unremarkable. will replete with mag 1 gm, potassium [address] scan abd/pelvis with IV contrast as kidney function allows. CT results: IMPRESSION: 1. Diffuse mural thickening with submucosal enhancement throughout the colon, asymmetrically involving the right hemicolon, compatible with pancolitis. Correlate clinically. 2. Additional areas of likely mural thickening within the small bowel, best appreciated the left upper quadrant. Correlate clinically for associated symptoms of enteritis. 3. There is moderate right hydroureteronephrosis with abrupt tapering of the mid to distal right ureter as it courses over the involved right hemicolon. Favor secondary obstruction. 4. Mild periportal edema involving segments 4B and 5 of the liver. Could be seen in association with congestive heart failure versus fluid overload status versus other inflammatory process. Correlate clinically. 5. Distention of the bladder without focal bladder wall thickening. Correlate clinically to exclude bladder outlet obstruction. 6. Additional chronic findings as discussed. case is discussed with Dr Morrison who will admit under observation for gentle IV hydration, electrolyte replacement and further monitoring. will obtain stool for cdiff and bacterial pathogens, lactoferrin., HPI General Date/Time Provider Initiated Documentation: 05/08/20 19:29. Limitations to Documentation: no limitations. Information obtained by: patient. HPI Narrative: patient presents for evaluation of abdominal pain, malaise anorexia and watery diarrhea for several weeks, she denies fever. has diffuse abdominal pain, nausea and intermittent vomiting Related Data Home Medications Medication Instructions Recorded Confirmed amlodipine 5 mg PO DAILY #0 tab 06/25/18 hydralazine 10 mg IVP Q4H PRN PRN #0.5 ml 06/25/18 insulin aspart U-100 [Novolog 0 units SUBCUT 0800,1200,1700 #0 ml 06/25/18 Flexpen U-100 Insulin] morphine 2 - 4 mg IVP Q4H PRN PRN #0 ml 06/25/18 promethazine 12.5 mg IM/IV Q4H PRN PRN #0 ml 06/25/18 ranitidine HCl 50 mg IVP Q12H #0 ml 06/25/18 aspirin [Aspirin Low Dose] 81 mg PO DAILY 07/20/18 07/20/18 Previous Rx's Medication Instructions Recorded amlodipine 5 mg PO DAILY #0 tab 06/25/18 hydralazine 10 mg IVP Q4H PRN PRN #0.5 ml 06/25/18 insulin aspart U-100 [Novolog 0 units SUBCUT 0800,1200,1700 #0 ml 06/25/18 Flexpen U-100 Insulin] morphine 2 - 4 mg IVP Q4H PRN PRN #0 ml 06/25/18 promethazine 12.5 mg IM/IV Q4H PRN PRN #0 ml 06/25/18 ranitidine HCl 50 mg IVP Q12H #0 ml 06/25/18 Allergies Allergy/AdvReac Type Severity Reaction Status Date / Time No Known Allergies Allergy Unverified 07/20/18 15:33 General TAMMY: 3 Review of Systems All systems reviewed & are unremarkable except as noted in HPI and below Constitutional Constitutional: Denies fever(s) and Reports weakness (generalized) Cardiovascular Cardiovascular: Denies chest pain and Denies dyspnea Respiratory Respiratory: Denies cough and Denies dyspnea Gastrointestinal Gastrointestinal: Reports abdominal pain, Denies melena, Denies hematochezia, Reports diarrhea, Reports loose stools, Reports nausea, Reports vomiting and Denies hematemesis Genitourinary Genitourinary: Denies difficulty voiding Neurologic Neurologic: Reports weakness (generalized) [facility] Medical History (Updated 05/08/20 @ 21:31 by Mónica Cooper NP) Choledocholithiasis NSTEMI (non-ST elevated myocardial infarction) Porcelain gallbladder Surgical History History of bilateral tubal ligation Social History Smoking/Tobacco Use Status: Never Smoking risk assessment performed?: Yes Alcohol Intake: never Drug use: Never Substance use type: does not use Caregiver/Support person: Yes (Family checks in regularly) Housing: house Number of Children: 6 Do you feel safe at home: Yes Do you feel safe in your relationship?: Yes History History 6 Para 6 Hx # Term Pregnancies Multiple births Hx # Pregnancies Ectopic pregnancies AB induced Hx Number of Living Children 6 AB spontaneous Exam Const General: cooperative, comfortable, frail appearing and ill appearing acutely Nutritional Appearance: thin Orientation: alert, awake and oriented x3 HENMT Head: normal to inspection, normocephalic and atraumatic Mouth: mucous membranes dry Resp Effort & Inspection: normal respiratory effort Auscultation: clear to auscultation bilaterally Cardio Rate: regular rate Rhythm: regular rhythm GI Inspection: normal to inspection Palpation: soft, not firm, no guarding and tender other (generalized) Auscultation: normal bowel sounds Skin General skin exam: no rashes or lesions noted Neuro General: patient alert, patient awake, patient oriented x3 and no focal motor deficits Extrem General: normal to inspection, full ROM and no pedal edema
[2020-05-08] MEDS: Ondansetron 4 MG/2 ML VIAL IVP (19:47)
[2020-05-08] MEDS: Normal Saline 1,000 ML 1000 ML IV (19:47)
[2020-05-08 19:50] LABS: Abs Immature Grans 0.08 10^3/uL (0.0-0.06); Absolute Basophil Count 0.05 10^3/uL (0.0-0.2); Absolute Eosinophil Count 0.05 10^3/uL (0.0-0.7); Absolute Lymphocyte Count 0.57 10^3/uL (1.2-3.4); Absolute Monocyte Count 0.99 10^3/uL (0.1-0.8); Basophils % 0.3; Eosinophils % 0.3; HCT 36.5 % (36.0-46.0); HGB 12.4 g/dL (11.2-15.7); Immature Grans % 0.5; Lymphocytes % 3.6; MCH 28.6 pg (27.0-33.0); MCV 84.1 fL (80-95); MPV 10.3 fL (8.0-11.0); Monocytes % 6.3; Nucleated RBC 0 %; Platelet Count 384 10^3/uL (130-400); RBC 4.34 10^6/uL (3.93-5.22); RDW 14.3 % (11.7-14.6); RDW-SD 43.6 fL; WBC 15.77 10^3/uL (4.4-10.8)
[2020-05-08 19:51] LABS: Absolute Neutrophil Count 14.04 10^3/uL (1.2-6.7)
--- NOTE | 2020-05-08 20:00 | DI.CT_ITS ---
EXAM: CT ABDOMEN PELVIS W CLINICAL HISTORY: abdominal pain TECHNIQUE: Imaging Protocol: Axial computed tomography images with coronal and sagittal reformatted images were created and reviewed CONTRAST MATERIAL: Intravenous: Omnipaque 350 Contrast volume:74 mL Oral: No COMPARISON: CT CT ABDOMEN PELVIS W from 07/20/2018 FINDINGS: ABDOMEN: Lung Bases: Dependent atelectasis. Liver: The dome of the liver is not included. Normal density. No measurable mass. The liver measure s 20.1 cm. Portal, Superior Mesenteric, and Splenic Veins: Unremarkable. Gallbladder and Biliary Tract: Status post cholecystectomy. No biliary ductal dilatation. Pancreas: Normal density, no abnormal calcifications or inflammatory process. Spleen: Normal. Adrenals: No masses seen. Kidneys: Normal size, contour and axis. 3 mm nonobstructing stone is seen in the superior pole of the right kidney. No masses seen. There is scarring seen in the left kidney. Tiny hypodensities are se en in the left kidney. They are too small for further characterization but likely reflect small cyst s. There is mild dilatation of the proximal right ureter to the level of the inflamed bowel. Abdominal Aorta: Abdominal portion non-dilated. Moderate atherosclerosis. Bowel: There is bowel wall thickening involving the cecum, ascending colon and proximal transverse co [place] with pericolonic inflammatory changes present. No evidence of bowel obstruction is seen. No sara dence of acute appendicitis. There is mild bowel wall thickening in loops of small bowel particularl y in the left upper quadrant. Peritoneal Cavity: There is a trace amount of ascites in the pelvis. No pneumoperitoneum or abscess is present. Lymph Nodes: Within normal limits. Bones: Degenerative changes are seen in the spine. Grade 1 pseudo spondylolisthesis of L4 on L5 is p resent. There is an S-type thoracolumbar scoliosis. Soft Tissues: Unremarkable. PELVIS: Bladder: Symmetric distention, no gross wall thickening. Reproductive Organs: Unremarkable as visualized. Lymph Nodes: Within normal limits. Bones: Please see the above discussion. IMPRESSION: 1. Diffuse bowel wall thickening seen in portions the large bowel consistent with an inflammatory or infectious colitis. 2. Bowel wall thickening in loops of small bowel particularly in the left upper quadrant which may re flect an infectious or inflammatory enteritis. Please correlate clinically. 3. Dilatation of the proximal right renal collecting system to the level of the inflammatory process. This is likely secondary obstruction related to the adjacent inflamed colon. RADIATION DOSE DELIVERED: 517.62mGy.cm Total DLP DATA REPOSITORY: All CT scans at this facility are submitted to the National Radiology Data Registry (NRDR) Dose Index Registry (DIR) with the [employer] (A[employer]). RADIATION OPTIMIZATION: All CT scans at this facility use at least one of these dose optimization te chniques: automated exposure control; mA and/or kV adjustment per patient size (includes targeted exa ms where dose is matched to clinical indication); or iterative reconstruction.
[2020-05-08 20:05] LABS: ALT 16 U/L (14-59); AST 20 U/L (15-37); Albumin 3.3 g/dL (3.4-5.0); Alkaline Phosphatase 92 U/L (46-116); Anion Gap 10.4 mmol/L (3-11); BUN 14 mg/dL (7-18); Bilirubin, Total 0.5 mg/dL (0.2-1.0); CO2 24.6 mmol/L (21.0-32.0); CREATININE 0.93 mg/dL (0.55-1.02); Calcium 8.3 mg/dL (8.5-10.1); Chloride 99 mmol/L (98-107); Estimated GFR 58.01 (mL/min/1.73m2); Glucose 167 mg/dL (74-106); Magnesium 1.7 mg/dL (1.8-2.4); Potassium 3.1 mmol/L (3.5-5.1); Sodium 134 mmol/L (136-145); Total Protein 6.9 g/dL (6.4-8.2)
[2020-05-08] MEDS: Omnipaque 350 MG/ML 100 ML BTL IJ (20:35)
[2020-05-08] MEDS: Normal Saline - Diluent 50 ML VIAL IV (20:36)
[2020-05-08] MEDS: Normal Saline Flush 10 ML SYR IVP (20:37)
[2020-05-08] MEDS: POTASSIUM CHLORIDE 10 MEQ/100 ML BAG 100 MEQ IVPB (20:43)
[2020-05-08] MEDS: MAGNESIUM SULFATE 1 GM/100 ML BAG IVPB (20:43)
--- NOTE | 2020-05-08 20:59 | DI.VRAD_ITS ---
PROCEDURE INFORMATION: Exam: CT Abdomen And Pelvis With Contrast Exam date and time: 05/08/2020 8:30 PM Age: 80 years old Clinical indication: Abdominal pain TECHNIQUE: Imaging protocol: Computed tomography of the abdomen and pelvis with intravenous contrast. COMPARISON: CT ABDOMEN PELVIS W 07/20/2018 6:01 PM FINDINGS: Lungs: Subpleural groundglass opacities in the bilateral posterior lung bases favored to represent changes of dependent atalectasis. Heart: Partially visualized cardiomegaly with dense mitral annular calcifications as well as likely left ventricular hypertrophy. Liver: There is mild periportal edema within the segment 5 as well as 4B of the liver. Otherwise no hepatic mass. Liver is mildly enlarged, right hepatic lobe measuring up to 20.1 cm craniocaudad. Gallbladder and bile ducts: Gallbladder is surgically absent with mild, expected degree of common bile duct dilation. Pancreas: Redemonstrated is area of non masslike hypodensity in the region of the uncinate of the pancreas, however with interval decrease in size. No pancreatic ductal dilation. Spleen: Unremarkable. No splenomegaly. Adrenal glands: Normal. No mass. Kidneys and ureters: Within the superior right renal pole collecting system there is 4 mm calcification. There is moderate right-sided hydroureteronephrosis with abrupt tapering of the mid to distal right ureter at the level of the pelvic inlet as it courses over the inflamed right hemicolon with loss of discrete fat plane. Distal right ureter is normal in course and caliber. There is several subcentimeter hypodensities within the left kidney which are too small to characterize, no imaging follow-up recommended. Left ureter normal in course and caliber. Stomach and bowel: There is diffuse irregular mural thickening with submucosal enhancement scattered throughout the colon, more advanced within the right hemicolon and cecum, with moderate pericolonic inflammatory stranding asymmetrically involving the right hemicolon with mild associated low-attenuation pericolonic free fluid. No drainable pericolonic fluid collection is identified. Also noted are likely areas of mural thickening within the small bowel, best appreciated within the left upper quadrant (series 4, image 26) with suggestion of associated perivascular engorgement. Appendix: No evidence of acute appendicitis. Intraperitoneal space: No free air. Mild low-attenuation free fluid within the pericolic gutter and right hemipelvis, likely reactive free fluid from inflammatory process of the colon. Otherwise no significant free fluid. Vasculature: There are moderate scattered atherosclerotic calcifications of the abdominal aorta and its major branches, no abdominal aortic aneurysm. Lymph nodes: No pathologically enlarged lymph nodes. Urinary bladder: Bladder is distended without focal bladder wall thickening. Reproductive: Unremarkable as visualized. Bones/joints: Diffuse decreased osseous mineralization consistent with osteopenia. There is S-shaped curvature of the thoracolumbar spine. No acute fracture. Note is made of changes of osteitis pubis at the symphysis pubis, correlate for appropriate symptoms. Soft tissues: No focal abnormality. IMPRESSION: 1. Diffuse mural thickening with submucosal enhancement throughout the colon, asymmetrically involving the right hemicolon, compatible with pancolitis. Correlate clinically. 2. Additional areas of likely mural thickening within the small bowel, best appreciated the left upper quadrant. Correlate clinically for associated symptoms of enteritis. 3. There is moderate right hydroureteronephrosis with abrupt tapering of the mid to distal right ureter as it courses over the involved right hemicolon. Favor secondary obstruction. 4. Mild periportal edema involving segments 4B and 5 of the liver. Could be seen in association with congestive heart failure versus fluid overload status versus other inflammatory process. Correlate clinically. 5. Distention of the bladder without focal bladder wall thickening. Correlate clinically to exclude bladder outlet obstruction. 6. Additional chronic findings as discussed. Dictated and Authenticated by: Nicholas Rangel MD. Ordering:MARLENI Sales MD
--- NOTE | 2020-05-08 21:30 | W.PM.HP.N ---
Date of service: 05/08/20 Time of Service: 21:31 Assessment and Plan Assessment and plan (1) Diarrhea: Status: Acute Assessment and plan: Acute to subacute diarrheal illness with findings of pancolitis. Infectious most likely, cannot r/o inflammatory. Given relatively mild symptoms, and lack of toxic findings I would hold on any empiric treatment pending further diagnostics. Firstly will await stool studies, if nondiagnostic may need colonoscopy. In meantime will hydrate, replenish electrolytes and track. Isolated manifestation of Covid possible but unlikely. The right hydronephrosis is noted. Given stable renal function no intervention would appear to be required at this point but will track along. It is assumed at this point that this is secondary to adjacent inflammatory activity but is possible this may need to be investigated as a separate matter. Reviewed ADs and clearly expresses wish to be DNR. History of Present Illness History of Present Illness Chief Complaint: diarrhea Narrative: 80 female reports one week (told ER 2 weeks) of intermittent watery diarrhea, approx twice per day, without pain. Some anorexia past few days. Has gotten progressively weaker to the point she is having trouble managing at home (lives alone). In ER eval of note for leukocytosis and pancolitis, with apparently incidental finding of right hydro due to adjacent colonic inflammation, with stable renal function (creat 0.9). No recent Abx, no similar illness in family. Otherwise feels her usual self. In Er has yet to produce stool sample. Mag and K replaced and given IVF. Feeling somewhat stronger. Is admitted for further eval and management. Review of Systems All systems reviewed & are unremarkable except as noted in HPI and below PFS Medical History (Updated 05/08/20 @ 21:39 by Mohit Morrison MD) Choledocholithiasis NSTEMI (non-ST elevated myocardial infarction) Porcelain gallbladder Surgical History History of bilateral tubal ligation Social History Smoking/Tobacco Use Status: Never Smoking risk assessment performed?: Yes Alcohol Intake: never Drug use: Never Substance use type: does not use Caregiver/Support person: Yes (Family checks in regularly) Housing: house Number of Children: 6 Do you feel safe at home: Yes Do you feel safe in your relationship?: Yes History History 6 Para 6 Hx # Term Pregnancies Multiple births Hx # Pregnancies Ectopic pregnancies AB induced Hx Number of Living Children 6 AB spontaneous Meds Home Medications and Allergies Home Medications Medication Instructions Recorded Confirmed Type amlodipine 5 mg PO DAILY #0 tab 06/25/18 Rx hydralazine 10 mg IVP Q4H PRN PRN #0.5 ml 06/25/18 Rx insulin aspart U-100 [Novolog 0 units SUBCUT 0800,1200,1700 #0 ml 06/25/18 Rx Flexpen U-100 Insulin] morphine 2 - 4 mg IVP Q4H PRN PRN #0 ml 06/25/18 Rx promethazine 12.5 mg IM/IV Q4H PRN PRN #0 ml 06/25/18 Rx ranitidine HCl 50 mg IVP Q12H #0 ml 06/25/18 Rx aspirin [Aspirin Low Dose] 81 mg PO DAILY 07/20/18 07/20/18 History Allergies Allergy/AdvReac Type Severity Reaction Status Date / Time No Known Allergies Allergy Unverified 07/20/18 15:33 Exam Narrative Exam Narrative: 209/70, 112, 37.3, 13, 96% RTA. HEENT unremarkable; neck supple; lungs clear; heart RRR with 1/6 sys murmur LUSB; abdomen +BS, soft and NT; extremities w/o edema; neuro Ox3, nonfocal Results Labs Result diagrams: 05/08/20 19:40 05/08/20 19:40 Labs: Laboratory Results - last 24 hr 05/08/20 05/08/20 05/08/20 19:32 19:40 19:40 WBC 15.77 H RBC 4.34 Hgb 12.4 Hct 36.5 MCV 84.1 MCH 28.6 MCHC 34.0 RDW 14.3 Plt Count 384 MPV 10.3 Immature Gran % 0.5 Neutrophils % 89.0 Lymphocytes % 3.6 Monocytes % 6.3 Eosinophils % 0.3 Basophils % 0.3 Nucleated RBC % 0 Absolute Neutrophils 14.04 H Absolute Lymphocytes 0.57 L Absolute Monocytes 0.99 H Absolute Eosinophils 0.05 Absolute Basophils 0.05 Sodium 134 L Potassium 3.1 L Chloride 99 Carbon Dioxide 24.6 Anion Gap 10.4 BUN 14 Creatinine 0.93 Estimated GFR/1.73 m2 58.01 Glucose 167 H Calcium 8.3 L Magnesium 1.7 L Total Bilirubin 0.5 AST 20 ALT 16 Alkaline Phosphatase 92 Troponin I Cancelled Total Protein 6.9 Albumin 3.3 L Last Vital Signs Temp 37.3 C 05/08/20 19:26 Pulse 112 H 05/08/20 19:26 Resp 13 05/08/20 19:26 BP 209/70 H 05/08/20 19:26 Pulse Ox 96 05/08/20 19:26 COVID-19 Screening Have you, or household traveled for leisure in last 14 days?: No Had IN PERSON contact w/suspected or confirmed C-19 person: No
[2020-05-08 21:46] LABS: Bilirubin Negative (Negative); Blood Negative (Negative); Clarity Clear (Clear); Glucose Negative (Negative); Ketones Negative (Negative); Leukocyte Esterase Trace (Negative); Nitrite Negative (Negative); Specific Gravity 1.015 (1.005-1.025); Urobilinogen 0.2 EU/dL (Up TO 0.2); pH 6.5 (5-8)
[2020-05-08 21:55] LABS: Bacteria Few HPF (Negative); C & S Indicated? Yes; Casts Negative LPF (Negative); Crystals Negative HPF (Negative); Epithelial Cells Few HPF (Negative); Mucus Negative (Negative); RBC 0-2 HPF (0-2)
[2020-05-08] MEDS: Acetaminophen 325 MG TAB 650 MG PO (22:17)
[2020-05-08] MEDS: amLODIPine 5 MG TAB PO (22:18)
[2020-05-08] MEDS: cefTRIAXone 1 GM/50 ML BAG IVPB (22:33)
[2020-05-08 23:35] VITALS: BP 158/62; PULSE 94; RESP 13; TEMP 37.3; O2SAT 95
[2020-05-08 23:54] VITALS: BP 162/73; PULSE 96; RESP 16; TEMP 37.3; O2SAT 96
[2020-05-08 23:55] VITALS: BP 162/73; PULSE 96; RESP 16; TEMP 37.3; O2SAT 96
[2020-05-09] MEDS: Normal Saline Flush 10 ML SYR IVP (00:47)
[2020-05-09] MEDS: POTASSIUM CHLORIDE/0.9% NACL 1,000 ML 100 MEQ IV ×2 (00:56→11:48)
[2020-05-09 07:48] LABS: HGB 12.5 g/dL (11.2-15.7); MCH 28.4 pg (27.0-33.0); MCHC 33.8 % (32.0-36.0); MCV 84.1 fL (80-95); MPV 10.7 fL (8.0-11.0); Platelet Count 375 10^3/uL (130-400); RDW 14.6 % (11.7-14.6); WBC 17.93 10^3/uL (4.4-10.8)
[2020-05-09 07:57] VITALS: BP 142/67; PULSE 89; RESP 18; TEMP 37.1; O2SAT 97
[2020-05-09 08:03] LABS: Anion Gap 7.2 mmol/L (3-11); BUN 9 mg/dL (7-18); CO2 25.8 mmol/L (21.0-32.0); CREATININE 0.88 mg/dL (0.55-1.02); Calcium 7.7 mg/dL (8.5-10.1); Chloride 102 mmol/L (98-107); Glucose 148 mg/dL (74-106); Potassium 3.7 mmol/L (3.5-5.1); Sodium 135 mmol/L (136-145)
--- NOTE | 2020-05-09 08:29 | W.PM.PROGNOT ---
Date of Service Date of service: 05/09/20 Time of Service: 08:29 Assessment and Plan Assessment and plan (1) C. difficile colitis: Status: Acute Assessment and plan: stool positive for cdiff. flagyl was added this morning, will add vancomycin. she is improved markedly since admission (2) Hypertension: Status: Acute Assessment and plan: continue amlodipine, hydralazine prn blood pressure better controlled. (3) UTI (urinary tract infection): Status: Acute Assessment and plan: received ceftriaxone day 2, urine shows mixed growth. Dr Rich consulted for hydronephrosis and as she is clinically improved so will hold on STENT placement and repeat ultrasound in 2 days. he recommends discontinuation of ceftriaxone and will f/u outpatient if she is discharged prior to . (4) DVT prophylaxis: Status: Acute Assessment and plan: malinda, scds, lovenox (5) Discharge planning issues: Status: Acute Assessment and plan: discharge home with no services evaluated by PT for safety at discharge and she was ambulatory without any assistive devices. discussed with DR Greer who is in agreement Subjective Subjective Patient reports: no new complaints, feels better, tolerating liquids well, voiding w/o difficulty and diarrhea Interval history since last seen: no further pain. Exam Const General: cooperative, comfortable, frail appearing and ill appearing acutely Nutritional Appearance: thin Orientation: alert, awake and oriented x3 HENMT Head: normal to inspection, normocephalic and atraumatic Mouth: mucous membranes dry Resp Effort & Inspection: normal respiratory effort Auscultation: clear to auscultation bilaterally Cardio Rate: regular rate Rhythm: regular rhythm GI Inspection: normal to inspection Palpation: soft, not firm, no guarding and tender other (generalized) Auscultation: normal bowel sounds Skin General skin exam: no rashes or lesions noted Neuro General: patient alert, patient awake, patient oriented x3 and no focal motor deficits Extrem General: normal to inspection, full ROM and no pedal edema Objective Last Vital Signs Temp 37.1 C 05/09/20 07:57 Pulse 89 05/09/20 07:57 Resp 18 05/09/20 07:57 BP 142/67 H 05/09/20 07:57 Pulse Ox 97 05/09/20 07:57 Laboratory Results - last 24 hr 11/16/20 11/16/20 11/16/20 19:32 19:40 19:40 WBC 15.77 H RBC 4.34 Hgb 12.4 Hct 36.5 MCV 84.1 MCH 28.6 MCHC 34.0 RDW 14.3 Plt Count 384 MPV 10.3 Immature Gran % 0.5 Neutrophils % 89.0 Lymphocytes % 3.6 Monocytes % 6.3 Eosinophils % 0.3 Basophils % 0.3 Nucleated RBC % 0 Absolute Neutrophils 14.04 H Absolute Lymphocytes 0.57 L Absolute Monocytes 0.99 H Absolute Eosinophils 0.05 Absolute Basophils 0.05 Sodium 134 L Potassium 3.1 L Chloride 99 Carbon Dioxide 24.6 Anion Gap 10.4 BUN 14 Creatinine 0.93 Estimated GFR/1.73 m2 58.01 Glucose 167 H Calcium 8.3 L Magnesium 1.7 L Total Bilirubin 0.5 AST 20 ALT 16 Alkaline Phosphatase 92 Troponin I Cancelled Total Protein 6.9 Albumin 3.3 L Urine Color Urine Clarity Urine pH Ur Specific [place] Urine Protein Urine Ketones Urine Blood Urine Nitrite Urine Bilirubin Urine Urobilinogen Ur Leukocyte Esterase Urine RBC Urine WBC Ur Epithelial Cells Urine Crystals Urine Bacteria Urine Casts Urine Mucus Ur Culture Indicated? Urine Glucose 05/08/20 05/09/20 05/09/20 21:12 07:20 07:20 WBC 17.93 H RBC 4.40 Hgb 12.5 Hct 37.0 MCV 84.1 MCH 28.4 MCHC 33.8 RDW 14.6 Plt Count 375 MPV 10.7 Immature Gran % Neutrophils % Lymphocytes % Monocytes % Eosinophils % Basophils % Nucleated RBC % Absolute Neutrophils Absolute Lymphocytes Absolute Monocytes Absolute Eosinophils Absolute Basophils Sodium 135 L Potassium 3.7 Chloride 102 Carbon Dioxide 25.8 Anion Gap 7.2 BUN 9 Creatinine 0.88 Estimated GFR/1.73 m2 >= 60.00 Glucose 148 H Calcium 7.7 L Magnesium Total Bilirubin AST ALT Alkaline Phosphatase Troponin I Total Protein Albumin Urine Color Yellow Urine Clarity Clear Urine pH 6.5 Ur Specific [place] 1.015 Urine Protein Negative Urine Ketones Negative Urine Blood Negative Urine Nitrite Negative Urine Bilirubin Negative Urine Urobilinogen 0.2 Ur Leukocyte Esterase Trace H Urine RBC 0-2 Urine WBC 5-10 Ur Epithelial Cells Few Urine Crystals Negative Urine Bacteria Few Urine Casts Negative Urine Mucus Negative Ur Culture Indicated? Yes Urine Glucose Negative
[2020-05-09] MEDS: metroNIDAZOLE 500 MG/100 ML BAG 100 MG IVPB ×3 (09:49→19:45)
[2020-05-09] MEDS: Enoxaparin 40 MG/0.4 ML SYR 30 MG SC (09:50)
--- NOTE | 2020-05-09 10:17 | IN_ITS ---
Date of service: 05/09/20 Time of Service: 09:12 PT Notes Visit Reasons: Diarrhea Physical Therapy Inpatient Initial Evaluation Date: 05/09/2020 Referring Doctor: Mónica Cooper NP PT Orders: PT CONSULT: Eval/treat Precautions: Fall. Standard. Activity as tolerated. Patient Profile/Admitting Diagnosis: Sharda is an 80-year-old female who presented to the ED on 05/08/2020 with chief presentation of diarrhea and complaints of abdominal pain and nausea. She is diagnosed with diarrhea with question of pancolitis. PMHX: Medical History (Updated 05/08/20 @ 21:39 by Mohit Morrison MD) Choledocholithiasis NSTEMI (non-ST elevated myocardial infarction) Porcelain gallbladder Surgical History History of bilateral tubal ligation Social History/Home Situation: Sharda lives with her grandson in a private home with one-step to enter. Her other kids and grandkids live close to her and provide support with grocery shopping, transportation, and pharmacy salesperson as needed. Equipment Owned/DME: Front wheeled walker, single-point cane Subjective: States that she feels a lot better and that her abdominal area is not that much upset as it was yesterday. Objective: General Observation: Seated on bedside chair. IV in the left brachium. Mental Status: Alert and oriented x4 Pain: Reported mild abdominal upset early this morning ROM: Right Upper Extremity: Shoulder Flexion WFL. Shoulder abduction WFL. Elbow flexion WFL. Wrist flexion WFL. Opening and closing of hand WFL. Left Upper Extremity: Shoulder Flexion WFL. Shoulder abduction WFL. Elbow fl exion WFL. Wrist flexion WFL. Opening and closing of hand WFL. Right Lower Extremity: Hip flexion WFL. Hip abduction WFL. Knee flexion WFL. Ankle dorsiflexion WFL. Ankle plantarflexion WFL. Left Lower Extremity: Hip flexion WFL. Hip abduction WFL. Knee flexion WFL. Ankle dorsiflexion WFL. Ankle plantarflexion WFL. Strength: Right Upper Extremity: Shoulder flexors 4/5. Shoulder abductors 4/5. Elbow flexors 4/5. Elbow extensors 4/5. Ground Water Pump Installer strong. Left Upper Extremity: Shoulder flexors 4/5. Shoulder abductors 4/5. Elbow flexors 4/5. Elbow extensors 4/5. Ground Water Pump Installer strong. Right Lower Extremity: Hip flexors 4/5. Hip abductors 4/5. Knee flexors 4/5. Knee extensors 4/5. Ankle dorsiflexors 4/5. Ankle plantarflexors 4/5. Left Lower Extremity: Hip flexors 4/5. Hip abductors 4/5. Knee flexors 4/5. Knee extensors 4/5. Ankle dorsiflexors 4/5. Ankle plantarflexors 4/5. Sensation: Intact as to pain and pressure on bilateral lower extremities. Bed Mobility/Transfers: Rolling supervision Supine to sit supervision Sit to supine supervision Sit to stand supervision Stand to sit supervision Bed to chair supervision Chair to bed supervision Gait: 5 feet without an assistive device with full weightbearing requiring supervision with age-related decrease in gt. Step through gait pattern. Balance: Static Sitting: Normal Dynamic Sitting: Normal Static Standing: Good Dynamic Standing: Fair Special Tests: Mobility Limitations Standardized Measure [facility] 6 clicks Basic Mobility Inpatient Short Form: Raw Score: 23 CMS Score: 11% deficit 4-stage balance test: Maintain positions 1 and 2 but unable with positions 3 and 4 indicating a risk for falls. Informed Consent/Education: Patient instructed in purpose of PT consult and plan of care. Assessment: Sharda tatiana functional mobility decline requiring supervision assist for all mobility ADL performance, decreased activity tolerance, and impairment in balance due to admitting diagnosis and co-morbidities. Sharda is an 80-year-old female who presented to the ED on 05/08/2020 with chief presentation of diarrhea and complaints of abdominal pain and nausea. She is diagnosed with diarrhea with question of pancolitis. She has a good support network at home. Patient presents with clinical signs and symptoms consistent with current/admitting diagnoses that have resulted to mobility limitations, gait instability, generalized weakness, and impairment of motor control as demonstrated by the following impairment level findings: 1. Decreased strength to B LE major muscle groups 2. Impaired standing balance 3. Impaired activity tolerance Impairments are contributing to the following functional limitations: 1. Increase completion time for mobility ADL performance 2. Increased fall risk 3. Inability to negotiate steps alone safely Patient is assessed as a 16366 moderate complexity based on the following: History: 80-year-old female with impairment level findings, functional limitations, and past medical history as indicated above Examination: Demonstrable impairment in strength, balance, and mobility level with underlying impairments and functional limitations as documented above Presentation:Evolving Decision Makin moderate complexity Goals: Goals X1 week 1. Supine-Sit independent 2. Sit-Supine independent 3. Sit-Stand independent 4. Stand-Sit independent 5. Bed-Chair independent 6. Chair-Bed independent 7. Independent gait on level surface with use of least restrictive device for at least 300 feet without report of pain nor dyspnea 8. Independent stair negotiation while holding onto bilateral rails for at least 10 steps without report of pain nor dyspnea 9. Independent with home exercise program 10. Good static and dynamic standing balance/tolerance Plan of Care/Treatment Plan: 1-2x/day, 7 days/week x 1 week. Plan of care has been reviewed with the [employer] providing the service under Physical Therapy direction. Initiate Physical Therapy intervention for strengthening, bed mobility, transfers, gait, stairs, balance training, use of assistive device. DISCHARGE RECOMMENDATIONS: Home when medically cleared by hospitalist. No equipment needs at this time. TREATMENT CODE/TIME: 9716 2 x 20 minutes, 9753 0 x 23 minutes beginning at 9:12 AM. Thank you for the opportunity to participate in the care of this patient. Lisette Farfan PT, DPT, CLT [facility] [place], [place]
[2020-05-09 10:30] LABS: Magnesium 2.1 mg/dL (1.8-2.4)
[2020-05-09 11:15] LABS: C Diff PCR Positive (Negative)
[2020-05-09] MEDS: cefTRIAXone 1 GM/50 ML BAG IVPB (11:47)
[2020-05-09] MEDS: Vancomycin 125 MG CAP PO ×3 (11:48→23:57)
--- NOTE | 2020-05-09 12:49 | UCONE_ITS ---
Date of service: 05/09/20 Time of Service: 14:40 Assessment and Plan Assessment and plan (1) Hydronephrosis, right: Status: Acute Assessment and plan: Since the hydronephrosis is a new finding (not on p revious CT scans) I believe it will improve as her bowel inflammation improves. I do not think we need to place a ureteral stent at this time. I would however like to recheck a renal ultrasound in about a week. I can even do the ultrasound in my office. If the hydronephrosis is still present, we probably will need to insert a ureteral stent until the bowel inflammation completely resolves. Her urine culture is not showing true pathogens, so I would not recommend antibiotic treatment especially in the face of C. difficile colitis. History of Present Illness History of Present Illness Chief Complaint: Right hydronephrosis Narrative: This is an 80-year-old woman who was admitted with complaints of diarrhea and anorexia. Her symptoms had been present for about 2 weeks. As part of her evaluation, she underwent a CT scan of the abdomen and pelvis with contrast. She was found to have right hydronephrosis with hydroureter down to an area of inflammation on the bowel. She has since been diagnosed with C. difficile colitis. On her initial evaluation, there was concern regarding a urinary tract infection. Her urine culture is showing contaminants rather than uropathogens. I been asked to see her for the hydronephrosis. She has no history of kidney stones. She has no known history of urinary tract infections or urologic surgery. She tells me that she feels like she is improving and is able to tolerate oral nutrition at this point. She is hoping to be discharged in the next day or 2. Review of Systems Constitutional Constitutional: Denies chills, Reports fatigue and Denies fever(s) Cardiovascular Cardiovascular: Denies chest pain and Denies dyspnea Respiratory Respiratory: Denies cough and Denies dyspnea Gastrointestinal Gastrointestinal: Reports diarrhea and Denies vomiting Endocrine Endocrine: Reports fatigue [facility] Medical History (Updated 05/09/20 @ 14:46 by Alphonso Rich MD) Choledocholithiasis Hydronephrosis, right NSTEMI (non-ST elevated myocardial infarction) Porcelain gallbladder Surgical History History of bilateral tubal ligation Social History Smoking/Tobacco Use Status: Never Smoking risk assessment performed?: Yes Alcohol Intake: never Drug use: Never Substance use type: does not use Caregiver/Support person: Yes (Family checks in regularly) Housing: house Number of Children: 6 Do you feel safe at home: Yes Do you feel safe in your relationship?: Yes History History 6 Para 6 Hx # Term Pregnancies Multiple births Hx # Pregnancies Ectopic pregnancies AB induced Hx Number of Living Children 6 AB spontaneous Exam Narrative Exam Narrative: She is a pleasant older woman in no current distress. She is cooperative. Her vital signs are documented elsewhere Her abdomen is soft with no guarding or rebound tenderness She is awake and alert I reviewed her CT scan on the PACS system. She does have old CT scans for comparison. The current right sided hydronephrosis was not present on previous scans. The ureter is dilated down to the inflammation around her bowel in the right lower quadrant. Results Last Vital Signs Temp 37.1 C 05/09/20 07:57 Pulse 89 05/09/20 07:57 Resp 18 05/09/20 07:57 BP 142/67 H 05/09/20 07:57 Pulse Ox 97 05/09/20 07:57 Labs Result diagrams: 05/09/20 07:20 05/09/20 07:20 Labs: Laboratory Results - last 24 hr 05/08/20 05/08/20 05/08/20 19:32 19:40 19:40 WBC 15.77 H RBC 4.34 Hgb 12.4 Hct 36.5 MCV 84.1 MCH 28.6 MCHC 34.0 RDW 14.3 Plt Count 384 MPV 10.3 Immature Gran % 0.5 Neutrophils % 89.0 Lymphocytes % 3.6 Monocytes % 6.3 Eosinophils % 0.3 Basophils % 0.3 Nucleated RBC % 0 Absolute Neutrophils 14.04 H Absolute Lymphocytes 0.57 L Absolute Monocytes 0.99 H Absolute Eosinophils 0.05 Absolute Basophils 0.05 Sodium 134 L Potassium 3.1 L Chloride 99 Carbon Dioxide 24.6 Anion Gap 10.4 BUN 14 Creatinine 0.93 Estimated GFR/1.73 m2 58.01 Glucose 167 H Calcium 8.3 L Magnesium 1.7 L Total Bilirubin 0.5 AST 20 ALT 16 Alkaline Phosphatase 92 Troponin I Cancelled Total Protein 6.9 Albumin 3.3 L Urine Color Urine Clarity Urine pH Ur Specific [place] Urine Protein Urine Ketones Urine Blood Urine Nitrite Urine Bilirubin Urine Urobilinogen Ur Leukocyte Esterase Urine RBC Urine WBC Ur Epithelial Cells Urine Crystals Urine Bacteria Urine Casts Urine Mucus Ur Culture Indicated? Urine Glucose Stool Campylobacter PCR Stl C.difficile Tox PCR Stool Salmonella PCR Stool Shigella PCR Shiga Toxin (PCR) 05/08/20 05/09/20 05/09/20 21:12 07:20 07:20 WBC 17.93 H RBC 4.40 Hgb 12.5 Hct 37.0 MCV 84.1 MCH 28.4 MCHC 33.8 RDW 14.6 Plt Count 375 MPV 10.7 Immature Gran % Neutrophils % Lymphocytes % Monocytes % Eosinophils % Basophils % Nucleated RBC % Absolute Neutrophils Absolute Lymphocytes Absolute Monocytes Absolute Eosinophils Absolute Basophils Sodium 135 L Potassium 3.7 Chloride 102 Carbon Dioxide 25.8 Anion Gap 7.2 BUN 9 Creatinine 0.88 Estimated GFR/1.73 m2 >= 60.00 Glucose 148 H Calcium 7.7 L Magnesium Total Bilirubin AST ALT Alkaline Phosphatase Troponin I Total Protein Albumin Urine Color Yellow Urine Clarity Clear Urine pH 6.5 Ur Specific [place] 1.015 Urine Protein Negative Urine Ketones Negative Urine Blood Negative Urine Nitrite Negative Urine Bilirubin Negative Urine Urobilinogen 0.2 Ur Leukocyte Esterase Trace H Urine RBC 0-2 Urine WBC 5-10 Ur Epithelial Cells Few Urine Crystals Negative Urine Bacteria Few Urine Casts Negative Urine Mucus Negative Ur Culture Indicated? Yes Urine Glucose Negative Stool Campylobacter PCR Stl C.difficile Tox PCR Stool Salmonella PCR Stool Shigella PCR Shiga Toxin (PCR) 05/09/20 05/09/20 05/09/20 07:20 09:44 09:44 WBC RBC Hgb Hct MCV MCH MCHC RDW Plt Count MPV Immature Gran % Neutrophils % Lymphocytes % Monocytes % Eosinophils % Basophils % Nucleated RBC % Absolute Neutrophils Absolute Lymphocytes Absolute Monocytes Absolute Eosinophils Absolute Basophils Sodium Potassium Chloride Carbon Dioxide Anion Gap BUN Creatinine Estimated GFR/1.73 m2 Glucose Calcium Magnesium 2.1 Total Bilirubin AST ALT Alkaline Phosphatase Troponin I Total Protein Albumin Urine Color Urine Clarity Urine pH Ur Specific [place] Urine Protein Urine Ketones Urine Blood Urine Nitrite Urine Bilirubin Urine Urobilinogen Ur Leukocyte Esterase Urine RBC Urine WBC Ur Epithelial Cells Urine Crystals Urine Bacteria Urine Casts Urine Mucus Ur Culture Indicated? Urine Glucose Stool Campylobacter PCR Cancelled Stl C.difficile Tox PCR Positive A Stool Salmonella PCR Cancelled Stool Shigella PCR Cancelled Shiga Toxin (PCR) Cancelled
[2020-05-09 14:58] LABS: COVID-19 RT-PCR UVMMC Result Negative (Negative)
--- NOTE | 2020-05-09 16:42 | PHA.REVIEW ---
Pharmacy Admission Review - Admission Clinical Review (Last Updated 05/09/20 @ 14:46 by Alphonso Rich MD) C. difficile colitis (Acute) Hydronephrosis, right (Acute) Discharge planning issues (Acute) DVT prophylaxis (Acute) UTI (urinary tract infection) (Acute) Diarrhea (Acute) Colitis (Acute) Hypertension (Acute) No Known Allergies Allergy (Unverified 07/20/18 15:33) Height 4 ft 11 in Weight 52 kg - Renal Dosing Renal Dosing: BUN 9 mg/dL (7-18) 05/09/20 07:20 Creatinine 0.88 mg/dL (0.55-1.02) 05/09/20 07:20 Medications needing adjustments: Reviewed (Crcl ~36.6 mL/min current meds okay.) - Anticoagulation Anticoagulation: Hgb 12.5 g/dL (11.2-15.7) 05/09/20 07:20 Hct 37.0 % (36.0-46.0) 05/09/20 07:20 Plt Count 375 10^3/uL (130-400) 05/09/20 07:20 Creatinine 0.88 mg/dL (0.55-1.02) 05/09/20 07:20 DVT Prohphylaxis: Reviewed Medications: Heparin - Opiate Usage Evaluate Pain Scale/Pains Meds: N/A - Relevant Labs Sodium 135 mmol/L (136-145) L 05/09/20 07:20 Potassium 3.7 mmol/L (3.5-5.1) 05/09/20 07:20 Chloride 102 mmol/L (98-107) 05/09/20 07:20 Magnesium 2.1 mg/dL (1.8-2.4) 05/09/20 07:20 Electrolytes, C-Reactive P, ESR: Reviewed - DM Control DM Control: Glucose 148 mg/dL (74-106) H 05/09/20 07:20 Insulin Dosing: Reviewed (BG elevated, previous A1c 6.26 Jun 2018, will mention to provider.) - Heart Failure/NJ Heart Failure/NJ: Troponin I Cancelled 05/08/20 19:32 EF%, DEEPAK's, B-Blockers, Diuretics: N/A - BP Control BP Control: Blood Pressure 142/67 If elevated: Reviewed (Provider aware, X1 dose amlodipine ordered last night, provider mentioned ordering daily but no orders so far today.) - Qtc Review If Elevated: N/A - IV to PO Switch IV Medications: Reviewed - Home Meds Home Med List reviewed: Reviewed (per H&P pt not taking any meds due to insurance) - Current meds Current Medication Order Review: Intervened (Discontinued DI meds (already given)) - Comments Comments/Follow Ups: Watch BP, BG, SCr, and for med changes (renal dosing adjustments)
[2020-05-09 17:56] VITALS: BP 120/59; PULSE 88; RESP 18; TEMP 37.1; O2SAT 95
--- NOTE | 2020-05-09 18:15 | INITIAL_ITS ---
- If Service Date Differs Date of service: 05/09/20 Time of Service: 18:15 Care Management Initial Assess REASON FOR HOSPITALIZATION:: Diarrhea PAST MEDICAL HISTORY/PAST SURGICAL HISTORY:: Medical History (Updated 05/08/20 @ 21:39 by Mohit Morrison MD). Choledocholithiasis. NSTEMI (non-ST elevated myocardial infarction). Porcelain gallbladder. Surgical History . History of bilateral tubal ligation PREVIOUS FUNCTIONAL STATUS/SOCIAL/FAMILY SUPPORTS:: Sharda resides alone in [place], [place]. 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 She has six children, all local except a daughter who resides in [place]. She has fifteen grandchildren; a healthy supportive family is reported. She has not been to the doctor since birthing her last child 47 years ago. She was previously independent in the community and was providing childcare to her great grandchildren until a few weeks ago. She was previously independent with all ADLs in the community and will be evaluated for further needs prior to discharge. CURRENT FUNCTIONAL STATUS:: Sharda was sitting up in her chair when CM met with her. She reported that she was feeling much better today. Her Covid 19 test result was negative, and she stated that she was happy to have the door to her room open now. She stated that she does live alone, but she has family that stays with her often, so she doesn't feel alone. Her daughter called while CM was in the room. CM will continue to follow. ADVANCE DIRECTIVES:: On file at [facility]; daughters Jennifer and Sasha as agents. Has patient been provided with info about the portal/API?: Yes Did the patient sign up for the portal?: No CODE STATUS:: DNR/DNI INSURANCE COVERAGE / FINANCIAL ISSUES:: MCR CURRENT HOME/COMMUNITY SERVICES/EQUIPMENT:: No current services or equipment. PRIMARY CARE PHYSICIAN:: No local PCP. CM sent referral to Dr. Conley at [facility], who was survey questionnaire designer when Sharda arrived at the ED. POTENTIAL DISCHARGE NEEDS:: Evaluations for further needs, follow up appointments. PATIENT/FAMILY EDUCATION NEEDS:: Review discharge instructions regarding activity, nutrition, and medications, discussion of self care needs and goals of care. ANTICIPATED BARRIERS TO DISCHARGE:: None identified at this time. TRANSPORTATION:: Via private vehicle by family. PLAN:: Anticipate Sharda will return home when medically cleared. Her daughter will drive her home via private vehicle when ready. She will follow up with [facility] post acute hospital admission, and may choose to establish care. CM will continue to follow.
[2020-05-09 23:15] VITALS: BP 159/68; PULSE 90; RESP 18; TEMP 36.7; O2SAT 98
[2020-05-10] MEDS: POTASSIUM CHLORIDE/0.9% NACL 1,000 ML 100 MEQ IV (00:03)
[2020-05-10] MEDS: metroNIDAZOLE 500 MG/100 ML BAG 100 MG IVPB ×2 (01:54→09:04)
[2020-05-10] MEDS: Vancomycin 125 MG CAP PO ×2 (05:44→11:41)
[2020-05-10 07:16] VITALS: BP 122/63; PULSE 77; RESP 18; TEMP 35.7; O2SAT 94
[2020-05-10 08:42] LABS: Abs Immature Grans 0.05 10^3/uL (0.0-0.06); Absolute Basophil Count 0.04 10^3/uL (0.0-0.2); Absolute Eosinophil Count 0.19 10^3/uL (0.0-0.7); Absolute Lymphocyte Count 1.15 10^3/uL (1.2-3.4); Absolute Monocyte Count 0.71 10^3/uL (0.1-0.8); Absolute Neutrophil Count 7.53 10^3/uL (1.2-6.7); Basophils % 0.4; HCT 30.2 % (36.0-46.0); HGB 10.1 g/dL (11.2-15.7); Immature Grans % 0.5; Lymphocytes % 11.9; MCH 28.4 pg (27.0-33.0); MCHC 33.4 % (32.0-36.0); MCV 84.8 fL (80-95); MPV 10.9 fL (8.0-11.0); Monocytes % 7.3; Neutrophils % 77.9; Nucleated RBC 0 %; Platelet Count 307 10^3/uL (130-400); RBC 3.56 10^6/uL (3.93-5.22); RDW 14.6 % (11.7-14.6); RDW-SD 45.1 fL; WBC 9.66 10^3/uL (4.4-10.8)
[2020-05-10] MEDS: Enoxaparin 30 MG/0.3 ML SYR SC (09:04)
[2020-05-10] MEDS: Normal Saline Flush 10 ML SYR IVP (09:04)
--- NOTE | 2020-05-10 09:34 | PT.INTREAT ---
Date of service: 05/10/20 Time of Service: 08:40 PT Notes Visit Reasons: Diarrhea Inpatient Physical Therapy Treatment Note [facility] Date: 05/10/2020 PRECAUTIONS: Fall SUBJECTIVE: Sharda is pleasant and agreeable to participating in PT. She is hopeful that she will be able to go home today. OBJECTIVE: PAIN: No c/o pain BED MOBILITY/TRANSFERS Supine-sit: I with HOB flat Sit-supine: I with HOB flat Sit-stand: I Stand-sit: I Bed-Chair: S Chair-bed: S GAIT Assistive Device: FWW Weight bearing: Full Assist: S Distance: 200' THEREX: Patient was instructed in a LE strengthening program, in a standing position, as per flow sheet. She also performs functional [id number] exercises. STAIRS: Up/down 3x4 using B rails and a step-to pattern, independently ASSESSMENT: Patient tolerated session well without complaint. She was able to tolerate a progression in gait distance without assistive device support and with supervision. PLAN: Continue with global strengthening and gait training without assistive device. TREATMENT CODE/TIME: 25 minutes; [id number], [id number]
--- NOTE | 2020-05-10 11:17 | DSE_ITS ---
Date of service: 05/10/20 Time of Service: 11:17 DS: Diagnosis Discharge Diagnosis (1) C. difficile colitis: Status: Acute Asessment and Plan: improving with normalized white count and resolution of diarrhea. complete 10 days of oral vancomycin (2) Hypertension: Status: Acute Asessment and Plan: started on amlodipine 5 mg daily (previously prescribed but not taking) blood pressures better controlled. (3) Hydronephrosis, right: Status: Acute Asessment and Plan: likely from inflammation from colitis and will resolve with treatment. will f/u with DR Rich outpatient for repeat ultrasound. kidney function normal (4) UTI (urinary tract infection): Status: Acute Asessment and Plan: culture shows mixed growth, received 2 doses of ceftriaxone, Dr Rich recommends discontinuing antibiotics. (5) Discharge planning issues: Status: Acute Asessment and Plan: case management referred patient to [facility] for follow up appointment. she should establish care for chronic disease management. Discharge Plan Disposition Patient Disposition: HOME Condition: Fair Discharge Details Reason For Visit: DIARRHEA Admit Date/Time: 05/08/20 21:46 Admit Provider: Mohit Morrison Attending Provider: Mohit Morrison Primary Care Provider: None,None Hospital Course Hospital Course: presented to ED private vehicle for diarrheal illness and generalized weakness. work up shows cdiff colitis. received IV hydration, IV flagyl and oral vanc omycin. will be discharged home to complete 10 days of oral vancomycin. white count normalized, diarrhea resolved, diet advanced and tolerating well. noted to be hypertensive on admission, amlodipine started (she was previously on but currently not taking), one month supply provided while she establishes with pcp. CT of abdomen also demonstrated right hydronephrosis, her kidney function intact with normal creatinine. she was seen by Dr Rich who will follow outpatient for f/u ultrasound, anticipate resolution with resolving inflammation from cdiff colitis. discussed with Dr Greer who is in agreement Home Meds and New Rx's Prescriptions: New vancomycin 125 mg Capsule 125 mg PO Q6H Qty: 32 RF: 0 Bio-K plus 50 billion cell capsule,delayed release(DR/EC) 1 cap PO DAILY Qty: 30 RF: 0 amlodipine 5 mg tablet 5 mg PO DAILY Qty: 30 RF: 0 Continued amlodipine 5 mg Tablet 5 mg PO DAILY Qty: 0 RF: 0 aspirin [Aspirin Low Dose] 81 mg Tablet,Delayed Release (Dr/Ec) 81 mg PO DAILY RF: 0 Discontinued hydralazine 20 mg/mL Solution 10 mg IVP Q4H PRN PRNQty: 0.5 RF: 0 insulin aspart U-100 [Novolog Flexpen U-100 Insulin] 100 unit/mL Insulin Pen 0 units subcut 0800,1200,1700 Qty: 0 RF: 0 morphine 4 mg/mL Solution 2 - 4 mg IVP Q4H PRN PRNQty: 0 RF: 0 promethazine 25 mg/mL Solution 12.5 mg IM/IV Q4H PRN PRNQty: 0 RF: 0 ranitidine HCl 50 mg/2 mL (25 mg/mL) Solution 50 mg IVP Q12H Qty: 0 RF: 0 Discharge Instructions Instructions: C Diff (Clostridium Difficile) Infection (DC), Hydronephrosis (DC), Hypertension in the Older Adult (DC) Additional Instructions: continue medication as directed, even if you feel better. monitor blood pressure weekly and record, bring to your appointment for medication adjustments as needed. drink at least 6-8 glasses of water daily to stay well hydrated. Referrals: None,None [Primary Care Provider] - ([facility] for follow up after discharge. she should establish primary care provider for chronic disease management) Alphonso Rich MD [ [facility] STAFF PHYSICIAN] - (for repeat ultrasound/evaluation of hydronephrosis) Activity:: Activity as Tolerated Equipment/Supplies:: No Equipment Needed Diet:: As Tolerated Discharge Orders Discharge Orders: Discharge Order (Routine); Ordered 05/10/20 Ordered By: Mónica Cooper DS: Summary Status at Discharge Functional status at discharge: independent ambulation Overall status at discharge: patient is progressing back to baseline Mental Status: mental status grossly normal Speech and Movement: speech and movement normal Mood: congruent mood Affect: normal affect Exam Const General: cooperative and comfortable Nutritional Appearance: thin Orientation: alert, awake and oriented x3 HENMT Head: normal to inspection, normocephalic and atraumatic Mouth: mucous membranes dry Resp Effort & Inspection: normal respiratory effort Auscultation: clear to auscultation bilaterally Cardio Rate: regular rate Rhythm: regular rhythm GI Inspection: normal to inspection Palpation: soft, not firm and no guarding Auscultation: normal bowel sounds Skin General skin exam: no rashes or lesions noted Neuro General: patient alert, patient awake, patient oriented x3 and no focal motor deficits Extrem General: normal to inspection, full ROM and no pedal edema Psych Mental Status: mental status grossly normal Speech and Movement: speech and movement normal Mood: congruent mood Affect: normal affect DS: Data Vitals/I&O Vitals and I&O: Vital Signs Temperature 35.7 C L 05/10/20 07:16 Temperature Source Tympanic 05/10/20 07:16 Pulse 77 05/10/20 07:16 Pulse Rhythm Regular 05/10/20 09:05 Respiratory Rate 18 05/10/20 07:16 Respiratory Effort Non-Labored 05/10/20 09:05 Respiratory Depth Normal 05/10/20 09:05 Respiratory Pattern Normal 05/10/20 09:05 Blood Pressure 122/63 05/10/20 07:16 Blood Pressure Position Supine 05/08/20 19:26 Pulse Oximetry 94 05/10/20 07:16 Oxygen Delivery Method Room Air 05/10/20 07:16 Oxygen Flow Rate 0 05/10/20 07:16 Pain Level 0 05/09/20 23:15 Comment 05/09/20 23:15 Intake & Output 05/09/20 05/09/20 05/10/20 11:59 23:59 11:59 Intake Total 1100 / 2540 1440 / 2540 400 / 400 Output Total 500 / 1050 550 / 1050 Balance 600 / 1490 890 / 1490 400 / 400 Intake: IV 1100 / 2300 1200 / 2300 100 / 100 Oral 240 / 240 300 / 300 Output: Urine 500 / 1050 550 / 1050 Other: Urine Color Straw Straw Urine Appearance Clear Clear Urine Odor Normal Normal Comment pt reports voiding this am. Stool Size Moderate Small Moderate Stool Characteristics Liquid Liquid Soft Brown Brown Brown Voiding Methods Toilet Toilet Toilet Data Completed and Pending Labs on day of discharge: Labs from last 24 hours 05/10/20 05/10/20 05/08/20 07:05 07:05 22:08 WBC 9.66 D RBC 3.56 L Hgb 10.1 L D Hct 30.2 L MCV 84.8 MCH 28.4 MCHC 33.4 RDW 14.6 Plt Count 307 Cancelled MPV 10.9 Immature Gran % 0.5 Neutrophils % 77.9 Lymphocytes % 11.9 Monocytes % 7.3 Eosinophils % 2.0 Basophils % 0.4 Nucleated RBC % 0 Absolute Neutrophils 7.53 H Absolute Lymphocytes 1.15 L Absolute Monocytes 0.71 Absolute Eosinophils 0.19 Absolute Basophils 0.04 COVID-19 PCR Negative Nasopharyn COVID-19 PCR Not Applicable Ref Test Perform Site [facility] Medical History (Updated 05/09/20 @ 14:59 by Mónica Cooper NP) Choledocholithiasis Hydronephrosis, right NSTEMI (non-ST elevated myocardial infarction) Porcelain gallbladder Surgical History History of bilateral tubal ligation Social History Smoking/Tobacco Use Status: Never Smoking risk assessment performed?: Yes Alcohol Intake: never Drug use: Never Substance use type: does not use Caregiver/Support person: Yes (Family checks in regularly) Housing: house Number of Children: 6 Do you feel safe at home: Yes Do you feel safe in your relationship?: Yes History History 6 Para 6 Hx # Term Pregnancies Multiple births Hx # Pregnancies Ectopic pregnancies AB induced Hx Number of Living Children 6 AB spontaneous
--- NOTE | 2020-05-10 16:39 | PDOC.CMDIS ---
- If Service Date Differs Date of service: 05/10/20 Time of Service: 16:39 LACE Index Scoring Tool - Questions: Length of Stay (in days): 3 Acuity (Admit via E.D.?): Yes E.D. Visits: 1 - Answers: Total Score: 7 Risk of Readmission: Low Risk Care Management Discharge Reason for Hospitalization: Diarrhea Discharge Plan: Sharda will return home today with no additional services. LUCINDA offered RN to assist with her new medications, which she declined. Her daughter will drive her home via private vehicle. LUCINDA called her daughter, Noemi, to update her on discharge instructions. LUCINDA coordinated a follow up appointment at [facility], as Dr. Conley was conveyor loader when she arrived at [facility]. Her appointment is on 05/16/20 at 8:20am. She will follow up with her discharge plan of care. Patient/Family Education Needs: Review discharge instructions regarding activity levels and medications, discussion of self care needs including ask me three and goals of care.
--- NOTE | 2020-05-12 12:00 | INDS_ITS ---
Date of service: 05/12/20 Time of Service: 12:00 PT Notes Visit Reasons: Diarrhea Physical Therapy Inpatient Discharge Summary Date: 05/12/2020 Dates of service: 05/09/2020 through 05/10/2020 This is a clinical summary of care provided on the duration of dates listed above. No charge was made in the completion of this documentation. Referring Doctor: Mónica Cooper NP PT Orders: PT CONSULT: Eval/treat Precautions: Fall. Standard. Activity as tolerated. Patient Profile/Admitting Diagnosis: Sharda is an 80-year-old female who presented to the ED on 05/08/2020 with chief presentation of diarrhea and complaints of abdominal pain and nausea. She is diagnosed with diarrhea with question of pancolitis. PMHX: Medical History (Updated 05/08/20 @ 21:39 by Mohit Morrison MD) Choledocholithiasis NSTEMI (non-ST elevated myocardial infarction) Porcelain gallbladder Surgical History History of bilateral tubal ligation Social History/Home Situation: Sharda lives with her grandson in a private home with one-step to enter. 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 Equipment Owned/DME: Front wheeled walker, single-point cane Subjective: NT. See most recent ACID BATH MIXER notes. Objective: General Observation: NT. See most recent ACID BATH MIXER notes. Mental Status: NT. See most recent ACID BATH MIXER notes. Pain: NT. See most recent ACID BATH MIXER notes. ROM: Right Upper Extremity: Shoulder Flexion WFL. Shoulder abduction WFL. Elbow flexion WFL. Wrist flexion WFL. Opening and closing of hand WFL. Left Upper Extremity: Shoulder Flexion WFL. Shoulder abduction WFL. Elbow flexion WFL. Wrist flexion WFL. Opening and closing of hand WFL. Right Lower Extremity: Hip flexion WFL. Hip abduction WFL. Knee flexion WFL. Ank le dorsiflexion WFL. Ankle plantarflexion WFL. Left Lower Extremity: Hip flexion WFL. Hip abduction WFL. Knee flexion WFL. Ankle dorsiflexion WFL. Ankle plantarflexion WFL. Strength: Right Upper Extremity: Shoulder flexors 4/5. Shoulder abductors 4/5. Elbow flexors 4/5. Elbow extensors 4/5. Commissioned Sales Associate strong. Left Upper Extremity: Shoulder flexors 4/5. Shoulder abductors 4/5. Elbow flexors 4/5. Elbow extensors 4/5. Commissioned Sales Associate strong. Right Lower Extremity: Hip flexors 4/5. Hip abductors 4/5. Knee flexors 4/5. Knee extensors 4/5. Ankle dorsiflexors 4/5. Ankle plantarflexors 4/5. Left Lower Extremity: Hip flexors 4/5. Hip abductors 4/5. Knee flexors 4/5. Knee extensors 4/5. Ankle dorsiflexors 4/5. Ankle plantarflexors 4/5. Sensation: Intact as to pain and pressure on bilateral lower extremities. Bed Mobility/Transfers: Rolling independent Supine to sit independent Sit to supine independent Sit to stand independent Stand to sit independent Bed to chair independent Chair to bed independent Gait: 200 feet without an assistive device with full weightbearing requiring supervision with age-related decrease in gt. Step through gait pattern. Up-and-down three 4 inch steps while holding onto bilateral rails with step to gait pattern independently. Balance: Static Sitting: Normal Dynamic Sitting: Normal Static Standing: Good Dynamic Standing: Good Assessment: Li demonstrates improved functional outcomes to during this episode of care as evidenced by goal status below. Goals: Goals X1 week 1. Supine-Sit independent MET 2. Sit-Supine independent MET 3. Sit-Stand independent MET 4. Stand-Sit independent MET 5. Bed-Chair independent MET 6. Chair-Bed independent MET 7. Independent gait on level surface with use of least restrictive device for at least 300 feet without report of pain nor dyspnea NOT MET 8. Independent stair negotiation while holding onto bilateral rails for at least 10 steps without report of pain nor dyspnea NOT MET 9. Independent with home exercise program NOT MET 10. Good static and dynamic standing balance/tolerance NOT MET DISCHARGE RECOMMENDATIONS: Home when medically cleared by hospitalist. No equipment needs at this time. TREATMENT CODE/TIME: MA Thank you for the opportunity to participate in the care of this patient. Lisette Farfan PT, DPT, CLT [facility] [place], [place]
[2020-05-15 16:13] LABS: Misc Referral (VDH) See Comments
== END 2020-05-10 13:22 | disposition home or self-care (01) ==
LOC: ER 21:52 → MS 23:26
PROVIDERS: Admitting Provider General Practice; Emergency Provider Nurse Practitioner Acute Care; Visit Provider Internal Medicine
DX: A04.72 Enterocolitis due to Clostridium difficile, not specified as recurrent (principal); Z11.59 Encounter for screening for other viral diseases; I10 Essential (primary) hypertension; N13.30 Unspecified hydronephrosis; N39.0 Urinary tract infection, site not specified; Z91.120 Patient's intentional underdosing of medication regimen due to financial hardship
CPT/HCPCS: 36415; 80048; 80053; 85027; 87329; 87493; 87505; 96361; 96365; 96367; 96368; 96372; 96375; 97110; 97162; 97530; 99213; 99217; 99222; 99226; 99253; 99285; J1650; U0003; 74177; 81003; 81015; 83630; 83735; 84484; 85025; 85049; 87086; 99219; G0378; J0696; J2405; J3475; J3480; J3490

== ENCOUNTER 2022-06-07 15:39 | Inpatient (IN) | payer MEDICARE, SELFPAY ==
[2022-06-07] VITALS (14 sets, daily range): BP systolic 119–195; BP diastolic 52–97; PULSE 67–90; RESP 9–18; TEMP 36.6; O2SAT 96
--- NOTE | 2022-06-07 16:00 | DI.RAD_ITS ---
Exam(s) XR CHEST 1V IN DI DEPT EXAM: XR CHEST 1V IN DI DEPT CLINICAL HISTORY: L hi pain, fall TECHNIQUE: 2D digital imaging was performed. COMPARISON: CR,XR XR HIP LT COMPLETE AP PELVIS from 06/07/2022 FINDINGS: LUNGS: Clear. No pleural abnormality seen. HEART: Mildly enlarged, Mitral valve calcification. AORTA: Normal diameter.Mildly tortuous. BONES: Unremarkable for age. Soft tissues: Unremarkable. IMPRESSION: No acute findings. DATA REPOSITORY: RADIATION DOSE DELIVERED:
--- NOTE | 2022-06-07 16:00 | DI.RAD_ITS ---
Exam(s) XR HIP LT COMPLETE AP PELVIS XR FEMUR LT EXAM: XR HIP LT COMPLETE AP PELVIS INDICATION: lateral pain. COMPARISON: CR,XR XR FEMUR LT from 06/07/2022 TECHNIQUE: 2D digital imaging was performed. AP and lateral views of the pelvis and left femur. FINDINGS: Subcapital fracture left femoral neck with varus angulation and mild displacement. No additional fra ctures are seen although the sacrum is mostly obscured by bowel gas. No dislocation. Hip joint spac es are maintained.Degenerative changes are present at the pubic symphysis and sacroiliac joints as we ll as lower lumbar spine. The knee is grossly intact. IMPRESSION: Subcapital fracture left femur. DATA REPOSITORY: RADIATION DOSE DELIVERED:
--- NOTE | 2022-06-07 16:04 | W.ED.GENAD ---
Discharge Plan Disposition Patient Disposition: Admit to [facility] Condition: Stable Discharge Details Clinical Impression: Closed fracture of left hip Primary Care Provider: Jin Ellis ED Provider: Ortiz Maciel Home Meds and New Rx's Prescriptions: No Action amlodipine 5 mg tablet 5 mg PO DAILY Qty: 90 3RF diclofenac sodium 3 % gel 1 applic topical BID PRN (Reason: pain) Qty: 100 0RF Medical Decision Making 82-year-old female who slipped and fell at home inside. She did not lose consciousness or strike her head or neck. She has holding her left hip in external rotation and slight flexion. She is tender with rotation as well as palpation of the lateral left hip. No motor or sensory weakness. Screening labs obtained, patient given analgesia, referred for radiograph which reveals left subcapital hip fracture. Case discussed with on-call surgery Dr. Guzman and patient will be taken to the OR tomorrow for operative repair. Given age and comorbidities patient to be admitted to the hospitalist service. Medical Records Medical records reviewed: Yes I reviewed the patient's medical records. Lab Data Lab results reviewed: Yes I reviewed the patient's lab results. Labs: Laboratory Results - last 24 hr 06/07/22 06/07/22 06/07/22 16:10 16:17 16:17 WBC 14.66 H RBC 4.20 Hgb 12.2 Hct 36.7 MCV 87 MCH 29.0 MCHC 33.2 RDW 13.3 Plt Count 252 MPV 10.2 Immature Gran % 0.6 Neutrophils % 87.5 Lymphocytes % 5.6 Monocytes % 5.9 Eosinophils % 0.1 Basophils % 0.3 Nucleated RBC % 0.0 Absolute Neutrophils 12.83 H Absolute Lymphocytes 0.82 L Absolute Monocytes 0.86 H Absolute Eosinophils 0.01 Absolute Basophils 0.04 PT INR Sodium 137 Potassium 3.5 Chloride 101 Carbon Dioxide 27.2 Anion Gap 8.8 BUN 14 Creatinine 0.9 Est GFR (CKD-EPI 2020) 63.83 Glucose 165 H Calcium 9.4 Total Bilirubin 0.5 AST 27 ALT 21 Alkaline Phosphatase 111 Troponin I Total Protein 7.7 Albumin 4.5 Urine Color Urine Clarity Urine pH Ur Specific [place] Urine Protein Urine Ketones Urine Blood Urine Nitrite Urine Bilirubin Urine Urobilinogen Ur Leukocyte Esterase Urine RBC Urine WBC Ur Epithelial Cells Urine Crystals Urine Bacteria Urine Casts Urine Mucus Ur Culture Indicated? Urine Glucose COVID-19 Source Nasal/Nares SARS-CoV-2 (PCR) Negative Patient ABO/Rh Antibody Screen 06/07/22 06/07/22 06/07/22 16:17 16:31 17:11 WBC RBC Hgb Hct MCV MCH MCHC RDW Plt Count MPV Immature Gran % Neutrophils % Lymphocytes % Monocytes % Eosinophils % Basophils % Nucleated RBC % Absolute Neutrophils Absolute Lymphocytes Absolute Monocytes Absolute Eosinophils Absolute Basophils PT 9.9 INR 1.0 Sodium Potassium Chloride Carbon Dioxide Anion Gap BUN Creatinine Est GFR (CKD-EPI 2020) Glucose Calcium Total Bilirubin AST ALT Alkaline Phosphatase Troponin I Total Protein Albumin Urine Color Yellow Urine Clarity Clear Urine pH 7.0 Ur Specific [place] 1.025 Urine Protein Negative Urine Ketones Negative Urine Blood Trace-intact H Urine Nitrite Negative Urine Bilirubin Negative Urine Urobilinogen 0.2 Ur Leukocyte Esterase Negative Urine RBC 3-5 H Urine WBC Negative Ur Epithelial Cells Rare Urine Crystals Negative Urine Bacteria Negative Urine Casts Negative Urine Mucus Negative Ur Culture Indicated? No Urine Glucose Negative COVID-19 Source SARS-CoV-2 (PCR) Patient ABO/Rh O Positive Antibody Screen NEGATIVE 06/07/22 21:11 WBC RBC Hgb Hct MCV MCH MCHC RDW Plt Count MPV Immature Gran % Neutrophils % Lymphocytes % Monocytes % Eosinophils % Basophils % Nucleated RBC % Absolute Neutrophils Absolute Lymphocytes Absolute Monocytes Absolute Eosinophils Absolute Basophils PT INR Sodium Potassium Chloride Carbon Dioxide Anion Gap BUN Creatinine Est GFR (CKD-EPI 2020) Glucose Calcium Total Bilirubin AST ALT Alkaline Phosphatase Troponin I < 50 Total Protein Albumin Urine Color Urine Clarity Urine pH Ur Specific [place] Urine Protein Urine Ketones Urine Blood Urine Nitrite Urine Bilirubin Urine Urobilinogen Ur Leukocyte Esterase Urine RBC Urine WBC Ur Epithelial Cells Urine Crystals Urine Bacteria Urine Casts Urine Mucus Ur Culture Indicated? Urine Glucose COVID-19 Source SARS-CoV-2 (PCR) Patient ABO/Rh Antibody Screen HPI General Date/Time Provider Initiated Documentation: 06/07/22 15:44. Limitations to Documentation: no limitations. Information obtained by: patient and family. History of Present Illness 82 year old F presents to the emergency department with the chief complaint of Fell at home inside now with left hip pain, described as moderate, Quality is described as dull and constant, and is localized to the left and lower extremity. Patient started experiencing this minute(s) and it has been constant. Rest improves symptom(s), Movement worsens symptoms . Patient notes denies headaches, loss of appetite, syncope and weakness. Patient did receive the following treatments prior to arrival, none Related Data Home Medications Medication Instructions Recorded Confirmed amlodipine 5 mg tablet 5 mg PO DAILY #90 tabs 05/31/22 06/07/22 diclofenac sodium 3 % topical gel 1 applic topical BID PRN pain #100 05/31/22 06/07/22 grams Previous Rx's Medication Instructions Recorded amlodipine 5 mg tablet 5 mg PO DAILY #90 tabs 05/31/22 diclofenac sodium 3 % topical gel 1 applic topical BID PRN pain #100 05/31/22 grams Allergies Allergy/AdvReac Type Severity Reaction Status Date / Time No Known Allergies Allergy Verified 06/07/22 15:56 General Stated Complaint: Orthopedic TAMMY: 4 Review of Systems Narrative: 6 systems reviewed and otherwise negative. No chest pain, no recent illness. PFSH All Active Problems (Updated 06/07/22 @ 19:08 by Mohit Morin) Pneumonia (Acute) Closed fracture of left hip (Acute) Displaced fracture of left femoral neck (Acute 06/07/22) Right hip pain (Acute) Hydronephrosis, right (Acute) Hypertension (Acute) Advance directive on file (Acute) Hyperglycemia (Acute) STANLEY (acute kidney injury) (Acute) Medical History Choledocholithiasis Elevated troponin NSTEMI (non-ST elevated myocardial infarction) Porcelain gallbladder Surgical History History of bilateral tubal ligation Social History Smoking/Tobacco Use Status: Never Smoking risk assessment performed?: Yes Alcohol Intake: never Drug use: Never Substance use type: does not use Caregiver/Support person: No (Family checks in regularly) Household members: family Housing: house Number of Children: 6 Communication Needs: Hard of Hearing Do you need help understanding health information?: Always Pets and animals: No Sexually active: No Current gender identity: female What is your relationship status?: How often do you talk on the phone with friends or family?: three or more times per week How often do you get together with friends or relatives?: three or more times per week How often do you attend anabaptism or temple services?: decline to answer Do you belong to any clubs or organized social groups?: no Panel score (0-1 are the most socially isolated patients): 1 What type of physical activity do you participate in: walking Duration: 30-45 minutes/day Frequency: daily Dilia/Gnosticism: None Special dilia needs: No Agree to transfusion: No Seatbelt use: always Helmet use: No Drive intox or ride w/intox school bus driver/mechanic: No Do you feel safe at home: Yes Do you feel safe in your relationship?: Yes Victim of physical abuse: No Victim of emotional abuse: No Victim of sexual abuse: No Would you like helpful sources: No History History 6 Para 6 Hx # Term Pregnancies Multiple births Hx # Pregnancies Ectopic pregnancies AB induced Hx Number of Living Children 6 AB spontaneous Exam Narrative Exam Narrative: GEN: awake, alert, oriented 3. Pleasant, well groomed, interactive. HEAD: Normocephalic, atraumatic ENT: Mucous membranes moist, oropharynx unremarkable, External ear exam unremarkable EYES: PERRL, EOMI NECK: Full ROM, nontender, no step-off or deformity CHEST/RESP: Nontender, clear to auscultation bilateral, no wheeze/rhonchi/rales CARDIOVASCULAR: Distant, regular, no murmur, rub zoe appreciated. 2+ Rad pulse bilateral ABDOMEN: Soft, nontender, no mass. +Bowel sounds EXT: Right leg unremarkable. Left leg held in flexion external rotation. Tenderness with internal/external rotation as well as palpation of left lateral hip. Palpable DP present bilaterally. Neuro: Grossly normal neurologic exam, conversant, interactive. Psych: Speech fluent, thoughts congruent, affect normal Course Vital Signs Vital signs: Vital Signs Temperature 36.6 C 06/07/22 15:47 Pulse 82 06/07/22 15:47 Respiratory Rate 18 06/07/22 15:47 Blood Pressure 193/97 H 06/07/22 15:47 Pulse Oximetry 96 06/07/22 15:47 Temperature 36.6 C 06/07/22 15:47 Temperature Source Temporal Artery Scan 06/07/22 15:47 Pulse 82 06/07/22 15:47 Respiratory Rate 18 06/07/22 15:47 Respiratory Effort Non-Labored 06/07/22 15:53 Blood Pressure 193/97 H 06/07/22 15:47 Blood Pressure Position Sitting 06/07/22 15:47 Pulse Oximetry 96 06/07/22 15:47 Oxygen Delivery Method Room Air 06/07/22 15:47 Oxygen Flow Rate 0 06/07/22 15:47 Pain Level 10 06/07/22 15:53
[2022-06-07 16:17] LABS: Source Nasal/Nares
[2022-06-07] MEDS: MORPHine 4 MG/ML SYR IVP ×2 (16:20→18:34)
[2022-06-07 16:23] LABS: Abs Immature Grans 0.09 10^3/uL (0.0-0.06); Absolute Lymphocyte Count 0.82 10^3/uL (1.2-3.4); Absolute Monocyte Count 0.86 10^3/uL (0.1-0.8); Basophils % 0.3; Eosinophils % 0.1; HCT 36.7 % (36.0-46.0); HGB 12.2 g/dL (11.2-15.7); Immature Grans % 0.6; Lymphocytes % 5.6; MCHC 33.2 % (32.0-36.0); MCV 87 fL (80-95); MPV 10.2 fL (8.0-11.0); Monocytes % 5.9; Neutrophils % 87.5; Platelet Count 252 10^3/uL (130-400); RDW 13.3 % (11.7-14.6); WBC 14.66 10^3/uL (4.4-10.8)
[2022-06-07 16:24] LABS: Absolute Basophil Count 0.04 10^3/uL (0.0-0.2); Absolute Eosinophil Count 0.01 10^3/uL (0.0-0.7); Absolute Neutrophil Count 12.83 10^3/uL (1.2-6.7)
[2022-06-07 16:31] LABS: Prothrombin Time 9.9 sec (9.3-11.0)
[2022-06-07 16:45] LABS: Bilirubin Negative (Negative); Blood Trace-intact (Negative); Clarity Clear (Clear); Glucose Negative (Negative); Ketones Negative (Negative); Leukocyte Esterase Negative (Negative); Nitrite Negative (Negative); Specific Gravity 1.025 (1.005-1.025); Urobilinogen 0.2 EU/dL (Up TO 0.2)
[2022-06-07 16:46] LABS: ALT 21 U/L (14-59); AST 27 U/L (15-37); Albumin 4.5 g/dL (3.4-5.0); Alkaline Phosphatase 111 U/L (46-116); Anion Gap 8.8 mmol/L (3-11); BUN 14 mg/dL (7-18); Bilirubin, Total 0.5 mg/dL (0.2-1.0); CO2 27.2 mmol/L (21.0-32.0); CREATININE 0.9 mg/dL (0.55-1.02); Calcium 9.4 mg/dL (8.5-10.1); Chloride 101 mmol/L (98-107); Estimated GFR 63.83 (mL/min/1.73m2); Glucose 165 mg/dL (74-106); Potassium 3.5 mmol/L (3.5-5.1); Sodium 137 mmol/L (136-145); Total Protein 7.7 g/dL (6.4-8.2)
[2022-06-07 16:48] LABS: COVID-19 PCR Negative (Negative)
[2022-06-07 16:51] LABS: Bacteria Negative HPF (Negative); C & S Indicated? No; Casts Negative LPF (Negative); Crystals Negative HPF (Negative); Epithelial Cells Rare HPF (Negative); Mucus Negative (Negative); WBC Negative HPF (0-5)
--- NOTE | 2022-06-07 17:30 | DI.VRAD_ITS ---
PROCEDURE INFORMATION: Exam: XR Left Hip Exam date and time: 06/07/2022 5:04 PM Age: 82 years old Clinical indication: Injury or trauma; Blunt trauma (contusions or hematomas); Left; Patient HX: L hip pain, fall TECHNIQUE: Imaging protocol: Radiologic exam of the Left hip. Views: 2 or 3 views hip with pelvis when performed. COMPARISON: CT ABDOMEN PELVIS W 05/08/2020 8:23 PM FINDINGS: Bones/joints: Displaced subcapital femoral neck fracture of the left hip.. Degenerative changes in the pubic symphysis and sacroiliac joints Soft tissues: Soft tissue swelling of the left hip IMPRESSION: Displaced subcapital femoral neck fracture of the left hip.. Dictated and Authenticated by: William Aguilera MD. Ordering:ALYSHA Alcantar MD
--- NOTE | 2022-06-07 17:30 | DI.VRAD_ITS ---
PROCEDURE INFORMATION: Exam: XR Chest Exam date and time: 06/07/2022 5:09 PM Age: 82 years old Clinical indication: Condition or disease; Other: Hip FX; Patient HX: L hip pain, fall TECHNIQUE: Imaging protocol: Radiologic exam of the chest. Views: 1 view. COMPARISON: CT ABDOMEN PELVIS W 05/08/2020 8:23 PM FINDINGS: Lungs: Mild opacity in the left base may represent atelectasis or pneumonia.. Pleural spaces: Unremarkable. No pleural effusion. No pneumothorax. Heart/Mediastinum: Unremarkable. No cardiomegaly. Bones/joints: Unremarkable. IMPRESSION: Mild opacity in the left base may represent atelectasis or pneumonia.. Dictated and Authenticated by: William Aguilera MD. Ordering:ALYSHA Alcantar MD
--- NOTE | 2022-06-07 17:53 | DI.VRAD_ITS ---
PROCEDURE INFORMATION: Exam: XR Left Femur Exam date and time: 06/07/2022 5:35 PM Age: 82 years old Clinical indication: Injury or trauma; Blunt trauma; Hip; Left; Patient HX: Fall, pain, pre-op TECHNIQUE: Imaging protocol: Radiologic exam of the Left femur. Views: 2 views. COMPARISON: CR XR HIP LT COMPLETE AP PELVIS 06/07/2022 5:04 PM FINDINGS: Bones/joints: Displaced subcapital femoral neck fracture of the left hip. Degenerative changes in the knee Soft tissues: Unremarkable. IMPRESSION: Displaced subcapital femoral neck fracture of the left hip. Dictated and Authenticated by: William Aguilera MD. Ordering:ALYSHA Alcantar MD
[2022-06-07] MEDS: ACETAMINOPHEN 1,000 MG/100 ML BTL 400 MG IVPB (18:34)
[2022-06-07] MEDS: Normal Saline 1,000 ML 125 ML IV (18:35)
--- NOTE | 2022-06-07 18:48 | HPE_ITS ---
Date of service: 06/07/22 Time of Service: 18:52 Assessment and Plan Assessment and plan (1) Displaced fracture of left femoral neck: Start date: 06/07/22 Status: Acute Assessment and plan: This is an 82-year lady who lives alone mostly and ambulates with a walker. She states that she fell and is a question whether she had a blackout but had no signs or symptoms of seizure or cardiac event during her fall. This most is a mechanical fall and resulting in displaced subcapital fracture of the left femur. Orthopedics has been consulted and patient is cleared for surgery. She is a full code. (2) Pneumonia: Start date: 06/07/22 Status: Acute Assessment and plan: No symptoms but patient does have a possible infiltrate on chest x-ray with Rocephin and doxycycline to be initiated preoperatively and follow-up imaging and symptoms postoperatively with good pulmonary toilet. Patient does not have any history of respiratory disease. (3) Hypertension: Status: Chronic Assessment and plan: Slight exacerbated with patient having pain and usually on amlodipine. We will initiate beta-jessi with metoprolol and monitor. She did have negative troponins and EKG did not show any acute changes with patient being cleared for surgery. She is a full code. Qualifiers: Hypertension type: essential hypertension Qualified Code(s): I10 - Essential (primary) hypertension (4) Hyperglycemia: Status: Acute Assessment and plan: Most likely secondary to stress with patient not having history of diabetes. Monitor with glucometers. Start insulin coverage only if trending high perioperatively. History of Present Illness History of Present Illness Chief Complaint: Mechanical fall with pain in left hip Narrative: This is an 82-year-old female patient who lives with family but they are at work during the day and she usually ambulates independently with a walker. She states that she was walking in her home when she blacked out and awakened on the floor. She had done this previously 10 years ago breaking her right hip. When she awakened she was on her left side. She has some discomfort when trying to move and then heard someone tapped on the door at which time she was discovered and brought to the ED for evaluation. She was found to have a displaced subcapital fracture of the left hip and will require repair. Cardiovascular work-up was negative the patient has a history of hypertension but this was not well controlled with her pain. She was given morphine for pain and this did somewhat help her blood pressure. She had no chest pressure or chest pain. She had no presyncopal symptoms other than blacking out. She was very vague about her history. This does not appear to be a recurrent problem or frequent. She will require cardiac monitoring but there does not appear to be any acute cardiac process and she is cleared for surgery in the morning. She will be n.p.o. after midnight. She is a full code. Review of Systems Narrative: 13 point review of systems negative for any respiratory or GI symptoms and no reported fever otherwise unrevealing or unobtainable with patient being vague. She appears to be stable not being overweight and fairly independent with her ADL activity. PFSH All Active Problems (Updated 06/08/22 @ 07:27 by Mohit Morin) Pneumonia (Acute) Closed fracture of left hip (Acute) Displaced fracture of left femoral neck (Acute 06/07/22) Right hip pain (Acute) Hydronephrosis, right (Acute) Hypertension (Chronic) Advance directive on file (Acute) Hyperglycemia (Acute) STANLEY (acute kidney injury) (Acute) Medical History Choledocholithiasis Elevated troponin NSTEMI (non-ST elevated myocardial infarction) Porcelain gallbladder Surgical History History of bilateral tubal ligation Social History Smoking/Tobacco Use Status: Never Smoking risk assessment performed?: Yes Alcohol Intake: never Drug use: Never Substance use type: does not use Caregiver/Support person: No (Family checks in regularly) Household members: family Housing: house Number of Children: 6 Communication Needs: Hard of Hearing Do you need help understanding health information?: Always Pets and animals: No Sexually active: No Current gender identity: female What is your relationship status?: How often do you talk on the phone with friends or family?: three or more times per week How often do you get together with friends or relatives?: three or more times per week How often do you attend bahai or hoahaoism services?: decline to answer Do you belong to any clubs or organized social groups?: no Panel score (0-1 are the most socially isolated patients): 1 What type of physical activity do you participate in: walking Duration: 30-45 minutes/day Frequency: daily Dilia/Yarsanism: None Special dilia needs: No Agree to transfusion: No Seatbelt use: always Helmet use: No Drive intox or ride w/intox minibus driver: No Do you feel safe at home: Yes Do you feel safe in your relationship?: Yes Victim of physical abuse: No Victim of emotional abuse: No Victim of sexual abuse: No Would you like helpful sources: No History History 6 Para 6 Hx # Term Pregnancies Multiple births Hx # Pregnancies Ectopic pregnancies AB induced Hx Number of Living Children 6 AB spontaneous Meds Allergies and Home Medications Allergies Allergy/AdvReac Type Severity Reaction Status Date / Time No Known Allergies Allergy Verified 06/07/22 15:56 Home Medications Medication Instructions Recorded Confirmed Type amlodipine 5 mg tablet 5 mg PO DAILY #90 tabs 05/31/22 06/07/22 Rx diclofenac sodium 3 % topical gel 1 applic topical BID PRN pain #100 05/31/22 06/07/22 Rx grams Exam Narrative Exam Narrative: General: Patient appears appropriate for age, thinly built and normal stature. Alert and oriented least to person and place. She is in no acute distress lying in bed and not moving. HEENT: Normocephalic, eyes with pupils equal and react to light symmetrically, extraocular movement tact and sclera anicteric. Oropharynx with dry mucosa. Neck: Supple without JVD. Back: Not examined patient supine. Heart: Regular rate and rhythm with distant heart sounds, no appreciable murmur or gallop. Breast: Exam deferred. Lungs: Fair aeration clear to auscultation percussion. Abdomen: Normal contour, soft and nontender to palpation with no palpable hepatosplenomegaly. Genitalia/rectal: Exam deferred with patient having Jordan catheter in place. Extremities: Left hip tender to any movement without swelling or obvious bruising. Osteoarthritic changes most joints. No pitting edema, clubbing or cyanosis. Fair capillary refill. Skin: Normal color, warm and dry. Neuro: Cranial nerves II through XII grossly intact, no focalized motor deficits. No tremor. Psych: Slightly flattened affect and wandering conversation. Mood appears normal. Slow monotonous tone to voice with some repetition during conversation. No abnormal thought processes manifested. Remote memory intact. Recent memory less intact and history that the patient gives to provider seems to change. Results Imaging Imaging Studies: Exam: XR Left Femur Exam date and time: 06/07/2022 5:35 PM Age: 82 years old Clinical indication: Injury or trauma; Blunt trauma; Hip; Left; Patient HX: Fall, pain, pre-op TECHNIQUE: Imaging protocol: Radiologic exam of the Left femur. Views: 2 views. COMPARISON: CR XR HIP LT COMPLETE AP PELVIS 06/07/2022 5:04 PM FINDINGS: Bones/joints: Displaced subcapital femoral neck fracture of the left hip. Degenerative changes in the knee Soft tissues: Unremarkable. IMPRESSION: Displaced subcapital femoral neck fracture of the left hip. Exam: XR Chest Exam date and time: 06/07/2022 5:09 PM Age: 82 years old Clinical indication: Condition or disease; Other: Hip FX; Patient HX: L hip pain, fall TECHNIQUE: Imaging protocol: Radiologic exam of the chest. Views: 1 view. COMPARISON: CT ABDOMEN PELVIS W 05/08/2020 8:23 PM FINDINGS: Lungs: Mild opacity in the left base may represent atelectasis or pneumonia.. Pleural spaces: Unremarkable. No pleural effusion. No pneumothorax. Heart/Mediastinum: Unremarkable. No cardiomegaly. Bones/joints: Unremarkable. IMPRESSION: Mild opacity in the left base may represent atelectasis or pneumonia. Exam: XR Left Hip Exam date and time: 06/07/2022 5:04 PM Age: 82 years old Clinical indication: Injury or trauma; Blunt trauma (contusions or hematomas); Left; Patient HX: L hip pain, fall TECHNIQUE: Imaging protocol: Radiologic exam of the Left hip. Views: 2 or 3 views hip with pelvis when performed. COMPARISON: CT ABDOMEN PELVIS W 05/08/2020 8:23 PM FINDINGS: Bones/joints: Displaced subcapital femoral neck fracture of the left hip.. Degenerative changes in the pubic symphysis and sacroiliac joints Soft tissues:? Soft tissue swelling of the left hip IMPRESSION: Displaced subcapital femoral neck fracture of the left hip. Labs Result diagrams: 06/08/22 05:55 06/08/22 05:55 Labs: Laboratory Results - last 24 hr 06/07/22 06/07/22 06/07/22 16:10 16:17 16:17 WBC 14.66 H RBC 4.20 Hgb 12.2 Hct 36.7 MCV 87 MCH 29.0 MCHC 33.2 RDW 13.3 Plt Count 252 MPV 10.2 Immature Gran % 0.6 Neutrophils % 87.5 Lymphocytes % 5.6 Monocytes % 5.9 Eosinophils % 0.1 Basophils % 0.3 Nucleated RBC % 0.0 Absolute Neutrophils 12.83 H Absolute Lymphocytes 0.82 L Absolute Monocytes 0.86 H Absolute Eosinophils 0.01 Absolute Basophils 0.04 PT INR Sodium 137 Potassium 3.5 Chloride 101 Carbon Dioxide 27.2 Anion Gap 8.8 BUN 14 Creatinine 0.9 Est GFR (CKD-EPI 2020) 63.83 Glucose 165 H Calcium 9.4 Total Bilirubin 0.5 AST 27 ALT 21 Alkaline Phosphatase 111 Total Protein 7.7 Albumin 4.5 Urine Color Urine Clarity Urine pH Ur Specific [place] Urine Protein Urine Ketones Urine Blood Urine Nitrite Urine Bilirubin Urine Urobilinogen Ur Leukocyte Esterase Urine RBC Urine WBC Ur Epithelial Cells Urine Crystals Urine Bacteria Urine Casts Urine Mucus Ur Culture Indicated? Urine Glucose COVID-19 Source Nasal/Nares SARS-CoV-2 (PCR) Negative Patient ABO/Rh Antibody Screen 06/07/22 06/07/22 06/07/22 16:17 16:31 17:11 WBC RBC Hgb Hct MCV MCH MCHC RDW Plt Count MPV Immature Gran % Neutrophils % Lymphocytes % Monocytes % Eosinophils % Basophils % Nucleated RBC % Absolute Neutrophils Absolute Lymphocytes Absolute Monocytes Absolute Eosinophils Absolute Basophils PT 9.9 INR 1.0 Sodium Potassium Chloride Carbon Dioxide Anion Gap BUN Creatinine Est GFR (CKD-EPI 2020) Glucose Calcium Total Bilirubin AST ALT Alkaline Phosphatase Total Protein Albumin Urine Color Yellow Urine Clarity Clear Urine pH 7.0 Ur Specific [place] 1.025 Urine Protein Negative Urine Ketones Negative Urine Blood Trace-intact H Urine Nitrite Negative Urine Bilirubin Negative Urine Urobilinogen 0.2 Ur Leukocyte Esterase Negative Urine RBC 3-5 H Urine WBC Negative Ur Epithelial Cells Rare Urine Crystals Negative Urine Bacteria Negative Urine Casts Negative Urine Mucus Negative Ur Culture Indicated? No Urine Glucose Negative COVID-19 Source SARS-CoV-2 (PCR) Patient ABO/Rh O Positive Antibody Screen NEGATIVE Last Vital Signs Temp 36.6 C 06/07/22 15:47 Pulse 82 06/07/22 15:47 Resp 18 06/07/22 15:47 BP 193/97 H 06/07/22 15:47 Pulse Ox 96 06/07/22 15:47
[2022-06-07] MEDS: cefTRIAXone 2 GM/50 ML BAG IVPB (20:54)
[2022-06-07] MEDS: MORPHine 10 MG/ML VIAL 2 MG IVP (20:56)
--- NOTE | 2022-06-07 21:15 | RT.EKG_ITS ---
APPROVED REPORT Exam: Resting ECG Reason for Exam: fall, preop Patient Location: E HR:70 bpm ECG Measurements Heart Rate 70 AXIS AR 142 P 68 QRSd 78 QRS 64 QT 379 T -78 QTc 410 Conclusion Sinus rhythm. Probable left atrial enlargement Nonspecific repol abnormality, diffuse leads...ST dep, T flat/neg, ant/lat/inf
[2022-06-07 21:46] LABS: Troponin I < 50 ng/L (<or=60)
[2022-06-07] MEDS: DOXYCYCLINE 100 MG in Normal Saline 100 ML IVPB (21:47)
[2022-06-08] VITALS (84 sets, daily range): BP systolic 118–204; BP diastolic 22–89; PULSE 65–108; RESP 8–23; TEMP 36.5–37.4; O2SAT 89–97; BMI 23.6
[2022-06-08 05:57] LABS: HCT 33.4 % (36.0-46.0); HGB 10.8 g/dL (11.2-15.7); MCH 28.3 pg (27.0-33.0); MCHC 32.3 % (32.0-36.0); MCV 88 fL (80-95); MPV 10.2 fL (8.0-11.0); Platelet Count 220 10^3/uL (130-400); RBC 3.81 10^6/uL (3.93-5.22); RDW 13.5 % (11.7-14.6); RDW-SD 43.3 fL; WBC 10.58 10^3/uL (4.4-10.8)
[2022-06-08 06:19] LABS: ALT 21 U/L (14-59); AST 23 U/L (15-37); Albumin 3.5 g/dL (3.4-5.0); Alkaline Phosphatase 92 U/L (46-116); Anion Gap 7.2 mmol/L (3-11); BUN 15 mg/dL (7-18); Bilirubin, Total 0.5 mg/dL (0.2-1.0); CO2 27.8 mmol/L (21.0-32.0); CREATININE 0.9 mg/dL (0.55-1.02); Calcium 8.7 mg/dL (8.5-10.1); Chloride 103 mmol/L (98-107); Estimated GFR 63.83 (mL/min/1.73m2); Glucose 118 mg/dL (74-106); Potassium 4.2 mmol/L (3.5-5.1); Sodium 138 mmol/L (136-145)
[2022-06-08] MEDS: Ondansetron 4 MG/2 ML VIAL IVP (08:12)
[2022-06-08] MEDS: Normal Saline Flush 10 ML SYR IVP ×4 (08:15→20:50)
[2022-06-08] MEDS: MORPHine 10 MG/ML VIAL 2 MG IVP (08:50)
[2022-06-08] MEDS: Normal Saline 1,000 ML 125 ML IV (08:51)
[2022-06-08] MEDS: Metoprolol 25 MG TAB PO ×3 (08:51→20:49)
[2022-06-08] MEDS: Acetaminophen 325 MG TAB PO (08:51)
--- NOTE | 2022-06-08 09:22 | INITIAL_ITS ---
- If Service Date Differs Date of service: 06/08/22 Time of Service: 09:22 Care Management Initial Assess REASON FOR HOSPITALIZATION:: Subcapital Fracture Left Hip, Pneumonia. PAST MEDICAL HISTORY/PAST SURGICAL HISTORY:: All Active Problems: Pneumonia (Acute), Closed fracture of left hip (Acute), Displaced fracture of left femoral neck (Acute 06/07/22), Right hip pain (Acute), Hydronephrosis, right (Acute), Hypertension (Chronic), Advance directive on file (Acute), Hyperglycemia (Acute), and STANLEY (acute kidney injury) (Acute). Medical History: Choledocholithiasis, Elevated troponin, NSTEMI (non-ST elevated myocardial infarction), and Porcelain gallbladder. Surgical History: History of bilateral tubal ligation. PREVIOUS FUNCTIONAL STATUS/SOCIAL/FAMILY SUPPORTS:: Sharda is and lives alone in [facility]. She states family members check in on her regularly and sometimes spend the night at her home, as she doesn't like to be home alone at nighttime. She has six adult children, many of whom live locally and are supportive of her. Prior to falling and fracturing her hip, she was independent with her ADLs. CURRENT FUNCTIONAL STATUS:: Sharda is lying in bed when CM comes by to see her. Her daughter, Jennifer, and a granddaughter are present in the room. Sharda is pleasant and easily engages in conversation but appears a bit drowsy, likely due to pain medication. Jennifer expresses concern over how her mom will manage at home alone while family is at work. CM assures her that patient will be further evaluated after her surgery and that appropriate services will be coordinated prior to discharge. CM will continue to follow. ADVANCE DIRECTIVES:: On file; daughter Noemi Davis is appointed as Health Care Agent and daughter Jennifer Dobson as alternate agent. Has patient been provided with info about the portal/API?: Yes Did the patient sign up for the portal?: Yes (Previously enrolled) CODE STATUS:: Full Code INSURANCE COVERAGE / FINANCIAL ISSUES:: Medicare. CURRENT HOME/COMMUNITY SERVICES/EQUIPMENT:: No home/community services at this time. Sharda owns a walker, cane, commode and has grab bars in her tub/shower. PRIMARY CARE PHYSICIAN:: ANDREI Segura. POTENTIAL DISCHARGE NEEDS:: Follow up appointments with PCP and surgeon and potential Home Health PT/OT vs. short term rehab. PATIENT/FAMILY EDUCATION NEEDS:: Review of discharge instructions including medications, limitations and follow up plan of care; discuss Ask Me Three. ANTICIPATED BARRIERS TO DISCHARGE:: None identified currently. TRANSPORTATION:: Via private vehicle with family. PLAN:: Sharda will likely return home with new Home Health PT/OT services when medically cleared. PT will evaluate need for short-term rehab following hip surgery. Patient will be transported home by family via private vehicle when ready. CM will continue to support Sharda, her family and any discharge planning needs.
--- NOTE | 2022-06-08 09:25 | ANES.PREOP_ITS ---
General Info Date of Service Date Performed: 06/08/22 Height: 4 ft 11 in Weight: 53.11 kg Body Mass Index (BMI): 23.6 Meds Allergies and Home Medications Allergies Allergy/AdvReac Type Severity Reaction Status Date / Time No Known Allergies Allergy Verified 06/07/22 15:56 Home Medication Medication Instructions Recorded amlodipine 5 mg tablet 5 mg PO DAILY #90 tabs 05/31/22 diclofenac sodium 3 % topical gel 1 applic topical BID PRN pain #100 05/31/22 grams Current Visit Medications: Current Medications Generic Name Dose Route Start Last Admin Trade Name Freq PRN Reason Stop Dose Admin Acetaminophen 0 mg 06/07/22 18:52 06/08/22 08:51 Acetaminophen 325 Mg Tab PO 650 mg Q4H PRN PRN Administration Al Hydrox/Mg Hydrox/Simethicone 30 ml 06/07/22 18:52 Mylanta Suspension 30 Ml Cup PO Q2H PRN PRN Dimethicone/Zinc Oxide 0 gm 06/07/22 18:52 Noreen Protect Cream 142 Gm Tube TP PRN PRN Docusate Sodium 100 mg 06/07/22 18:52 Docusate Sodium 100 Mg Cap PO TID PRN PRN Sodium Chloride 1,000 mls @ 125 mls/hr 06/07/22 18:30 06/08/22 08:51 Saline 1000ml Bag IV 125 mls/hr INFUSION MINESH Administration Ceftriaxone Sodium/Dextrose 2 gm in 50 mls @ 100 mls/hr 06/08/22 20:00 Rocephin IVPB Q24H MINESH Doxycycline Hyclate 100 mg/ 100 mls @ 100 mls/hr 06/08/22 10:00 Sodium Chloride IVPB Q12H MINESH Sodium Chloride 50 mls @ 0 mls/hr 06/08/22 08:18 Saline 50ml Bag IV PRN PRN As Directed IV Miscellaneous Supplies 1 each 06/07/22 16:00 Iv Access IV DIRECTED MINESH Magnesium Hydroxide 30 ml 06/07/22 18:52 Milk Of Magnesia 30 Ml Cup PO DAILY PRN PRN Metoprolol Tartrate 25 mg 06/08/22 08:00 06/08/22 08:51 Metoprolol 25 Mg Tab PO 25 mg Q6H MINESH Administration Morphine Sulfate 2 mg 06/07/22 16:00 06/08/22 08:50 Morphine 10 Mg/Ml Vial IVP 2 mg PRN PRN Administration Ondansetron HCl 4 mg 06/07/22 21:29 06/08/22 08:12 Ondansetron 4 Mg/2 Ml Vial IVP 4 mg Q4H PRN PRN Administration Polyethylene Glycol 17 gm 06/07/22 18:52 Polyethylene Glycol 3350 17 Gm Packet PO DAILY PRN PRN Constipation Sodium Chloride 0 ml 06/07/22 16:00 06/08/22 08:51 Normal Saline Flush 10 Ml Syr IVP 10 ml PRN PRN Administration PFSH Active Problems Active Problems: Problem Status Onset Code Pneumonia J18.9 Closed fracture of left hip S72.002A Displaced fracture of left femoral neck 06/07/22 S72.002A Right hip pain M25.551 Hydronephrosis, right N13.30 Hypertension I10 Advance directive on file Z78.9 Hyperglycemia R73.9 STANLEY (acute kidney injury) N17.9 Medical History Medical History Choledocholithiasis Elevated troponin NSTEMI (non-ST elevated myocardial infarction) Porcelain gallbladder Surgical History Surgical History History of bilateral tubal ligation Tobacco Smoking/Tobacco Use Status: Never Alcohol Alcohol Intake: never Substance Use Substance use: Never Substance use type: does not use Prental History History 6 Para 6 Hx # Term Pregnancies Multiple births Hx # Pregnancies Ectopic pregnancies AB induced Hx Number of Living Children 6 AB spontaneous Vital Signs and Lab Results Vital Signs Most Recent Vital Signs in EMR: Most Recent Vital Signs Temp Pulse Resp BP Pulse Ox 37.3 C 90 19 204/89 H 94 06/08/22 08:17 06/08/22 08:17 06/08/22 08:17 06/08/22 08:17 06/08/22 08:17 Point of Care Results Point of Care Results: Finger Stick Blood Glucose 179 06/07/22 22:51 Lab Results Result Diagrams: 06/08/22 05:55 06/08/22 05:55 Blood Type / Crossmatch: Patient ABO/Rh O Positive 06/07/22 Antibody Screen NEGATIVE 06/07/22 Complete Blood Count: White Blood Count 10.58 10^3/uL (4.4-10.8) 06/08/22 05:55 Red Blood Count 3.81 10^6/uL (3.93-5.22) L 06/08/22 05:55 Hemoglobin 10.8 g/dL (11.2-15.7) L 06/08/22 05:55 Hematocrit 33.4 % (36.0-46.0) L 06/08/22 05:55 Platelet Count 220 10^3/uL (130-400) 06/08/22 05:55 Complete Metabolic Panel: Sodium 138 mmol/L (136-145) 06/08/22 05:55 Potassium 4.2 mmol/L (3.5-5.1) 06/08/22 05:55 Chloride 103 mmol/L (98-107) 06/08/22 05:55 Carbon Dioxide 27.8 mmol/L (21.0-32.0) 06/08/22 05:55 BUN 15 mg/dL (7-18) 06/08/22 05:55 Creatinine 0.9 mg/dL (0.55-1.02) 06/08/22 05:55 Est GFR (CKD-EPI 2020) 63.83 (mL/min/1.73m2) 06/08/22 05:55 Magnesium 2.0 mg/dL (1.8-2.4) 06/08/22 05:55 Calcium 8.7 mg/dL (8.5-10.1) 06/08/22 05:55 Albumin 3.5 g/dL (3.4-5.0) 06/08/22 05:55 Glucose 118 mg/dL (74-106) H 06/08/22 05:55 Liver Function Panel: Alanine Aminotransferase (ALT/SGPT) 21 U/L (14-59) 06/08/22 05: 55 Aspartate Amino Transf (AST/SGOT) 23 U/L (15-37) 06/08/22 05:55 Coagulation Panel: INR International Normalized Ratio 1.0 (0.9-1.1) 06/07/22 16:1 7 Prothrombin Time 9.9 sec (9.3-11.0) 06/07/22 16:17 Cardiac Panel: Troponin I < 50 ng/L (<or=60) 06/08/22 Creatine Kinase 218 U/L (26-192) H 06/08/22 Arterial Blood Gas: No Data to Display Venous Blood Gas: No Data to Display Pancreas Panel: No Data to Display Thyroid Panel: No Data to Display Infectious Disease: Coronavirus (COVID-19)(PCR) Negative (Negative) 06/07/22 16:10 Coronavirus 2019 Source Nasal/Nares 06/07/22 16:10 Blood Cultures: No Data to Display Toxicology Panel: No Data to Display Imaging and Studies Imaging and Studies Study information below may be from another EMR and interpreted by another provider. Please see original notes in EMR for more complete details. EKG Summary: 06/13: sinus. Echocardiogram Summary: 06/2018: LVH, LVEF 65-75%. PAS 35-40 mmhg. 06/2018 ([facility] [place]): moderate concentric hypertrophy, small outflow obstruction, hyperdynamic - LVEF 80%. no hemodynamicly sig valve dz. Anesthesia Assessment and Plan Anesthesia History Personal History: No History of Anesthesia Complications Family History: No Family History of Anesthesia Complications Exercise Tolerance Exercise Tolerance: Metabolic Equivalents>4 Cardiac & Pulmonary Exam Cardiac Exam: Normal S1/S2 Heart Sounds Pulmonary Exam: Clear Bilateral Breath Sounds Implantable Cardiac Device Does patient have a Pacemaker or an ICD?: No Airway Exam Known Difficult Airway: No Mallampati Class: 4 Mouth Opening: Narrow (< 3cm) Thyromental Distance: Less than 3 cm Neck Range of Motion: Limited ROM Neck Circumference: Normal Teeth Condition: Edentulous ASA Classification ASA Score: ASA 3 Emergency Case?: No NPO Status NPO Status: NPO Clears >2 hours, Solids >8 hours Anesthesia Plan Resuscitation Status: Full Code Anesthesia Technique: General Anesthesia Airway Planned: Endotracheal Tube Monitors Used: Arterial Line Preoperative Comments:: 82 yo female with hip fracture to OR for dieudonne. currently inpt. Sig PMHx: NSTEMI (06/23/2018 per caridology in the setting of acute cholecystitis and STANLEY), ?current pneumonia (no symptoms, but infiltrate on CXR, ceftriazone 2 gm/24 hr), HTN (getting metoprolol), GFR 63, 06/2018: LVH, LVEF 65-75%. PAS 35-40 mmhg. 06/2018 ([facility] [place]): moderate concentric hypertrophy, small outflow obstruction, hyperdynamic - LVEF 80%. no hemodynamicly sig valve dz. Previous Anes: - lap marlene masked with 2 hands and OPA, mac 3 grade 1. art line. - ERCP RSI, mac 3 grade 1. 100 fent/50 prop requiring 400 phenyl. arterial line. Disccused risks, benifits, and alternitives (where appropriate) of GA vs spinal. In chatting iwth pt and daughter, plan abbey be GA +/- arterial line.
[2022-06-08 09:47] LABS: Lab Add On Test COMPLETED
[2022-06-08 10:02] LABS: Creatine Kinase 218 U/L (26-192); Troponin I < 50 ng/L (<or=60)
[2022-06-08] MEDS: DOXYCYCLINE 100 MG in Normal Saline 100 ML IVPB ×2 (10:31→23:32)
[2022-06-08] MEDS: MORPHine 4 MG/ML SYR IVP ×2 (12:51→14:45)
--- NOTE | 2022-06-08 14:29 | W.ORTHOCONSU ---
Date of service: 06/08/22 Time of Service: 14:00 History of Present Illness Narrative: Describes fall at home, mechanical, onto left side with sudden onset left hip pain and discomfort. No other areas of her body injured or sore today. Significant pre-existing right hip discomfort that apparently limited ambulation for over the past year and may be years to short distances in the home with an apparent shuffling gait pattern. Apparently needed an assist device but was not routinely using one prior to this injury. No pre-existing pain in the left hip. Fairly comfortable at rest now. Denies any other significant complicating factors Consult Reason Left displaced femoral neck fracture Assessment and Plan Assessment and plan (1) Displaced fracture of left femoral neck: Status: Acute Assessment and plan: 82 year old female with displaced Left femoral neck fracture Complete femur x-rays, done Multimodal pain control Medical admission and optimization for surgery Plan on left hip hemiarthroplasty, which will need to be coordinated around The risks, benefits, and alternatives were thoroughly discussed. With the patient and her daughters. Patient was counseled regarding pain management, expected postoperative course, and recovery timeline. All questions were answered. Informed consent was obtained. Agree and understand treatment plan. Breathing comfortably on room air. No coughs or wheezes. 2+ left radial pulse. Regular rate and rhythm. Review of Systems Narrative: In particular, no chest pain no shortness of breath no significant pain no numbness or tingling in the left lower extremity PFSH All Active Problems Pneumonia (Acute) Closed fracture of left hip (Acute) Displaced fracture of left femoral neck (Acute 06/07/22) Right hip pain (Acute) Hydronephrosis, right (Acute) Hypertension (Chronic) Advance directive on file (Acute) Hyperglycemia (Acute) STANLEY (acute kidney injury) (Acute) Medical History Choledocholithiasis Elevated troponin NSTEMI (non-ST elevated myocardial infarction) Porcelain gallbladder Surgical History History of bilateral tubal ligation Social History Smoking/Tobacco Use Status: Never Smoking risk assessment performed?: Yes Alcohol Intake: never Drug use: Never Substance use type: does not use Caregiver/Support person: No (Family checks in regularly) Household members: family Housing: house Number of Children: 6 Communication Needs: Hard of Hearing Do you need help understanding health information?: Always Pets and animals: No Sexually active: No Current gender identity: female What is your relationship status?: How often do you talk on the phone with friends or family?: three or more times per week How often do you get together with friends or relatives?: three or more times per week How often do you attend jehovah's witness or adventist services?: decline to answer Do you belong to any clubs or organized social groups?: no Panel score (0-1 are the most socially isolated patients): 1 What type of physical activity do you participate in: walking Duration: 30-45 minutes/day Frequency: daily Lillian/Yazidi: None Special lillian needs: No Agree to transfusion: No Seatbelt use: always Helmet use: No Drive intox or ride w/intox public transit bus driver: No Do you feel safe at home: Yes Do you feel safe in your relationship?: Yes Victim of physical abuse: No Victim of emotional abuse: No Victim of sexual abuse: No Would you like helpful sources: No History History 6 Para 6 Hx # Term Pregnancies Multiple births Hx # Pregnancies Ectopic pregnancies AB induced Hx Number of Living Children 6 AB spontaneous Exam Narrative Exam Narrative: Pleasant, comfortable resting in hospital bed Demonstrate active range of motor without difficulty bilateral upper extremity and right lower extremity Left hip with tenderness not vigorously tested positive logroll and axial load Compartments soft, skin intact, no significant edema or ecchymosis yet Sensation intact light touch throughout left lower extremity demonstrates intact motor about the foot and ankle Results Last Vital Signs Temp 97.8 F 06/07/22 15:47 Pulse 82 06/07/22 15:47 Resp 18 06/07/22 15:47 BP 193/97 H 06/07/22 15:47 Pulse Ox 96 06/07/22 15:47 Labs Result diagrams: 06/08/22 05:55 06/08/22 05:55 Labs: Laboratory Results - last 24 hr 06/07/22 06/07/22 06/07/22 16:10 16: 16:17 WBC 14.66 H RBC 4.20 Hgb 12.2 Hct 36.7 MCV 87 MCH 29.0 MCHC 33.2 RDW 13.3 Plt Count 252 MPV 10.2 Immature Gran % 0.6 Neutrophils % 87.5 Lymphocytes % 5.6 Monocytes % 5.9 Eosinophils % 0.1 Basophils % 0.3 Nucleated RBC % 0.0 Absolute Neutrophils 12.83 H Absolute Lymphocytes 0.82 L Absolute Monocytes 0.86 H Absolute Eosinophils 0.01 Absolute Basophils 0.04 PT INR Sodium 137 Potassium 3.5 Chloride 101 Carbon Dioxide 27.2 Anion Gap 8.8 BUN 14 Creatinine 0.9 Est GFR (CKD-EPI 2020) 63.83 Glucose 165 H Calcium 9.4 Total Bilirubin 0.5 AST 27 ALT 21 Alkaline Phosphatase 111 Total Protein 7.7 Albumin 4.5 Urine Color Urine Clarity Urine pH Ur Specific [place] Urine Protein Urine Ketones Urine Blood Urine Nitrite Urine Bilirubin Urine Urobilinogen Ur Leukocyte Esterase Urine RBC Urine WBC Ur Epithelial Cells Urine Crystals Urine Bacteria Urine Casts Urine Mucus Ur Culture Indicated? Urine Glucose COVID-19 Source Nasal/Nares SARS-CoV-2 (PCR) Negative 06/07/22 06/07/22 16:17 16:31 WBC RBC Hgb Hct MCV MCH MCHC RDW Plt Count MPV Immature Gran % Neutrophils % Lymphocytes % Monocytes % Eosinophils % Basophils % Nucleated RBC % Absolute Neutrophils Absolute Lymphocytes Absolute Monocytes Absolute Eosinophils Absolute Basophils PT 9.9 INR 1.0 Sodium Potassium Chloride Carbon Dioxide Anion Gap BUN Creatinine Est GFR (CKD-EPI 2020) Glucose Calcium Total Bilirubin AST ALT Alkaline Phosphatase Total Protein Albumin Urine Color Yellow Urine Clarity Clear Urine pH 7.0 Ur Specific [place] 1.025 Urine Protein Negative Urine Ketones Negative Urine Blood Trace-intact H Urine Nitrite Negative Urine Bilirubin Negative Urine Urobilinogen 0.2 Ur Leukocyte Esterase Negative Urine RBC 3-5 H Urine WBC Negative Ur Epithelial Cells Rare Urine Crystals Negative Urine Bacteria Negative Urine Casts Negative Urine Mucus Negative Ur Culture Indicated? No Urine Glucose Negative COVID-19 Source SARS-CoV-2 (PCR)
--- NOTE | 2022-06-08 14:30 | ROE_ITS ---
Date of service: 06/08/22 Time of Service: 16:00 Operative Note Operative Note DATE OF PROCEDURE: 06/08/22 PRE-OP DIAGNOSIS: Left displaced femoral neck fracture PROCEDURE: Left posterior hip hemiarthroplasty SURGEON: Tay Guzman [employer]IN[employer]NANCE DIRECTOR: Adeline Arriaza ANESTHESIA TYPE: Local By Surgeon and General LMA/ETT Refer to Anesthesia Record ESTIMATED BLOOD LOSS: 75 COMPLICATIONS: None Patient was transported to: PACU Patient's condition: stable Implants: DePuy Corail press fit femoral stem size 9 standard with 44 mm unipolar head +0 mm length Procedure Description: In the operating room, general anesthesia was induced. The patient was transferred and positioned laterally on the operating room table. All bony pro minences were well-padded. Preoperative antibiotics were administered as well as 1 g of TXA. The Left hip was prepped and draped in the usual sterile fashion. The correct patient, procedure, and side of the procedure were all verified prior to incision. The posterior lateral approach to left hip was utilized. 30 cc of 0.25% bupivacaine containing epinephrine was infiltrated about the incision. Deeply, care was taken to protect the sciatic nerve. The short external rotators and capsule were reflected off the femoral neck and tagged for retraction and later repair. The femoral neck fracture was cut to an appropriate length and to match the desired implant. The femoral head was removed from the acetabulum and measured on the back table. All bony debris was removed from the wound. The proximal femoral canal was sequentially opened and broached with the appropriate lateralization and anteversion until there was a relatively solid fit. Trial reduction with a standard offset +0 mm length head demonstrated good suction seal and stability throughout physiologic range of motion. The trial implants were removed. The femoral stem was then impacted to the appropriate depth. The last used femoral head was trialed and found to have excellent stability throughout supra-physiologic range of motion including vulnerable positions. The hip was dislocated and the trial head was removed. The trunnion was dried, and the final femoral head was impacted, reduced into the acetabulum, and found to have excellent stability. The wound was copiously irrigated with Betadine and normal saline. 1 g of vancomycin powder was distributed mostly deep to the capsule with some superficial to the capsule about the wound. The short external rotators were repaired using SutureTape through bone tunnels in the greater trochanter. Distally, the IT band fascia was closed using #1 Vicryl in an interrupted fashion. Proximally, the gluteus carley muscle fascia was closed using 0 Vicryl in a running fashion. The superficial wound was irrigated with normal saline. Subcutaneous tissue was closed using 2-0 Monocryl in a buried interrupted fashion. Skin was closed using 3-0 Monocryl in a buried subcuticular buried fashion. Skin was sealed with skin glue. A silver impregnated bandage was applied over the wound. The patient awoke from anesthesia without complication and was transferred to the recovery room in a stable condition.
[2022-06-08] MEDS: Lactated Ringers 1,000 ML 30 ML IV (15:46)
--- NOTE | 2022-06-08 16:24 | W.PM.PROGNOT ---
Date of Service Date of service: 06/08/22 Time of Service: 16:24 Assessment and Plan Assessment and plan (1) Displaced fracture of left femoral neck: Status: Acute Assessment and plan: surgical repair today. routine post operative care. pain management, pulmonary toileting, pt/ot (2) Hypertension: Status: Chronic Assessment and plan: continue home medication and monitor Qualifiers: Hypertension type: essential hypertension Qualified Code(s): I10 - Essential (primary) hypertension (3) Hyperglycemia: Status: Acute Assessment and plan: likely stress response from trauma, blood sugars have been controlled. will discontinue discussed with Dr Greer Subjective Subjective Patient reports: still having pain, nausea and afebrile; denies tolerating liquids well (has been npo) or shortness of breath Exam Const General: cooperative, comfortable, no acute distress and frail appearing Nutritional Appearance: average body habitus Orientation: alert, awake and oriented to person HENMT Head: normal to inspection and normocephalic Mouth: oral mucosae normal Resp Effort & Inspection: normal respiratory effort Auscultation: clear to auscultation bilaterally Cardio Rate: regular rate Rhythm: regular rhythm GI Inspection: normal to inspection Palpation: soft Skin General skin exam: no rashes or lesions noted Extrem General: normal to inspection and abnormal ROM Objective Last Vital Signs Temp 37.4 C 06/08/22 15:22 Pulse 81 06/08/22 15:22 Resp 16 06/08/22 15:22 BP 179/80 H 06/08/22 15:22 Pulse Ox 92 06/08/22 15:22 Laboratory Results - last 24 hr 06/07/22 06/07/22 06/07/22 16:10 16:17 16:17 WBC 14.66 H RBC 4.20 Hgb 12.2 Hct 36.7 MCV 87 MCH 29.0 MCHC 33.2 RDW 13.3 Plt Count 252 MPV 10.2 Immature Gran % 0.6 Neutrophils % 87.5 Lymphocytes % 5.6 Monocytes % 5.9 Eosinophils % 0.1 Basophils % 0.3 Nucleated RBC % 0.0 Absolute Neutrophils 12.83 H Absolute Lymphocytes 0.82 L Absolute Monocytes 0.86 H Absolute Eosinophils 0.01 Absolute Basophils 0.04 PT INR Sodium 137 Potassium 3.5 Chloride 101 Carbon Dioxide 27.2 Anion Gap 8.8 BUN 14 Creatinine 0.9 Est GFR (CKD-EPI 2020) 63.83 Glucose 165 H Calcium 9.4 Magnesium Total Bilirubin 0.5 AST 27 ALT 21 Alkaline Phosphatase 111 Creatine Kinase Troponin I Total Protein 7.7 Albumin 4.5 Urine Color Urine Clarity Urine pH Ur Specific [place] Urine Protein Urine Ketones Urine Blood Urine Nitrite Urine Bilirubin Urine Urobilinogen Ur Leukocyte Esterase Urine RBC Urine WBC Ur Epithelial Cells Urine Crystals Urine Bacteria Urine Casts Urine Mucus Ur Culture Indicated? Urine Glucose SARS-CoV-2 (PCR) Negative Add-On Test Request Patient ABO/Rh Antibody Screen 06/07/22 06/07/22 06/07/22 16:17 16:31 17:11 WBC RBC Hgb Hct MCV MCH MCHC RDW Plt Count MPV Immature Gran % Neutrophils % Lymphocytes % Monocytes % Eosinophils % Basophils % Nucleated RBC % Absolute Neutrophils Absolute Lymphocytes Absolute Monocytes Absolute Eosinophils Absolute Basophils PT 9.9 INR 1.0 Sodium Potassium Chloride Carbon Dioxide Anion Gap BUN Creatinine Est GFR (CKD-EPI 2020) Glucose Calcium Magnesium Total Bilirubin AST ALT Alkaline Phosphatase Creatine Kinase Troponin I Total Protein Albumin Urine Color Yellow Urine Clarity Clear Urine pH 7.0 Ur Specific [place] 1.025 Urine Protein Negative Urine Ketones Negative Urine Blood Trace-intact H Urine Nitrite Negative Urine Bilirubin Negative Urine Urobilinogen 0.2 Ur Leukocyte Esterase Negative Urine RBC 3-5 H Urine WBC Negative Ur Epithelial Cells Rare Urine Crystals Negative Urine Bacteria Negative Urine Casts Negative Urine Mucus Negative Ur Culture Indicated? No Urine Glucose Negative SARS-CoV-2 (PCR) Add-On Test Request Patient ABO/Rh O Positive Antibody Screen NEGATIVE 06/07/22 06/08/22 06/08/22 21:11 05:55 05:55 WBC 10.58 RBC 3.81 L Hgb 10.8 L Hct 33.4 L MCV 88 MCH 28.3 MCHC 32.3 RDW 13.5 Plt Count 220 MPV 10.2 Immature Gran % Neutrophils % Lymphocytes % Monocytes % Eosinophils % Basophils % Nucleated RBC % Absolute Neutrophils Absolute Lymphocytes Absolute Monocytes Absolute Eosinophils Absolute Basophils PT INR Sodium 138 Potassium 4.2 Chloride 103 Carbon Dioxide 27.8 Anion Gap 7.2 BUN 15 Creatinine 0.9 Est GFR (CKD-EPI 2020) 63.83 Glucose 118 H Calcium 8.7 Magnesium 2.0 Total Bilirubin 0.5 AST 23 ALT 21 Alkaline Phosphatase 92 Creatine Kinase 218 H Troponin I < 50 < 50 Total Protein 7.0 Albumin 3.5 Urine Color Urine Clarity Urine pH Ur Specific [place] Urine Protein Urine Ketones Urine Blood Urine Nitrite Urine Bilirubin Urine Urobilinogen Ur Leukocyte Esterase Urine RBC Urine WBC Ur Epithelial Cells Urine Crystals Urine Bacteria Urine Casts Urine Mucus Ur Culture Indicated? Urine Glucose SARS-CoV-2 (PCR) Add-On Test Request Patient ABO/Rh Antibody Screen 06/08/22 09:47 WBC RBC Hgb Hct MCV MCH MCHC RDW Plt Count MPV Immature Gran % Neutrophils % Lymphocytes % Monocytes % Eosinophils % Basophils % Nucleated RBC % Absolute Neutrophils Absolute Lymphocytes Absolute Monocytes Absolute Eosinophils Absolute Basophils PT INR Sodium Potassium Chloride Carbon Dioxide Anion Gap BUN Creatinine Est GFR (CKD-EPI 2020) Glucose Calcium Magnesium Total Bilirubin AST ALT Alkaline Phosphatase Creatine Kinase Troponin I Total Protein Albumin Urine Color Urine Clarity Urine pH Ur Specific [place] Urine Protein Urine Ketones Urine Blood Urine Nitrite Urine Bilirubin Urine Urobilinogen Ur Leukocyte Esterase Urine RBC Urine WBC Ur Epithelial Cells Urine Crystals Urine Bacteria Urine Casts Urine Mucus Ur Culture Indicated? Urine Glucose SARS-CoV-2 (PCR) Add-On Test Request COMPLETED Patient ABO/Rh Antibody Screen
[2022-06-08] MEDS: Tranexamic Acid 1,000 MG/10 ML VIAL 1000 MG (16:27)
[2022-06-08] MEDS: Bupivacaine 0.25% Pres-Free W/EPI 30 ML VIAL (16:47)
--- NOTE | 2022-06-08 18:00 | DI.RAD_ITS ---
Exam(s) XR HIP LT COMPLETE AP PELVIS EXAM: XR HIP LT COMPLETE AP PELVIS INDICATION: Postop. COMPARISON: No exams were available for comparison TECHNIQUE: 2D digital imaging was performed. Three views. FINDINGS: The patient is status post placement of the left hip prosthesis. The alignment appears satisfactory. There is a residual postsurgical air in the soft tissues. DATA REPOSITORY: RADIATION DOSE DELIVERED:
--- NOTE | 2022-06-08 18:27 | W.PM.PROGNOT ---
Date of Service Date of service: 06/08/22 Time of Service: 18:27 Assessment and Plan Assessment and plan (1) Displaced fracture of left femoral neck: Status: Acute Assessment and plan: 82-year-old female postop day #0 status post Left posterior hip hemiarthroplasty Complete 24 hours postoperative antibiotics Discontinue Jordan catheter postop day #1 Pain control-Multimodal Physical therapy ordered: Weightbearing as tolerated with assist device. Avoid deep hip flexion with adduction and internal rotation for 6 weeks. May start chemical DVT prophylaxis tomorrow assuming hemodynamically stable: Aspirin 81 mg twice daily ordered x30 days Continue mechanical DVT prophylaxis with SCDs and/or SHANEKA hose Discharge when medically appropriate Follow-up with Dr. Guzman outpatient [facility] in 2 to 3 weeks Appreciate medical management Subjective Subjective Interval history since last seen: No complaints Exam Narrative Exam Narrative: Resting in PACU. Left hip dressing clean dry intact. Compartments soft. Demonstrating active motor through left lower extremity but unable to participate in exam at this time. Leg lengths challenging to assess due to positioning, but probably slightly long on the operative side. Separately, there is a chronic appearing toe ulcer/wound between on the fourth toe on the lesser toe side. A piece of dry gauze has been placed here. It should be observed and redressed as necessary. Objective Last Vital Signs Temp 99.3 F 06/08/22 15:22 Pulse 81 06/08/22 15:22 Resp 16 06/08/22 15:22 BP 179/80 H 06/08/22 15:22 Pulse Ox 92 06/08/22 15:22 Laboratory Results - last 24 hr 06/07/22 06/07/22 06/07/22 16:10 16:17 16:17 WBC 14.66 H RBC 4.20 Hgb 12.2 Hct 36.7 MCV 87 MCH 29.0 MCHC 33.2 RDW 13.3 Plt Count 252 MPV 10.2 Immature Gran % 0.6 Neutrophils % 87.5 Lymphocytes % 5.6 Monocytes % 5.9 Eosinophils % 0.1 Basophils % 0.3 Nucleated RBC % 0.0 Absolute Neutrophils 12.83 H Absolute Lymphocytes 0.82 L Absolute Monocytes 0.86 H Absolute Eosinophils 0.01 Absolute Basophils 0.04 PT INR Sodium 137 Potassium 3.5 Chloride 101 Carbon Dioxide 27.2 Anion Gap 8.8 BUN 14 Creatinine 0.9 Est GFR (CKD-EPI 2020) 63.83 Glucose 165 H Calcium 9.4 Magnesium Total Bilirubin 0.5 AST 27 ALT 21 Alkaline Phosphatase 111 Creatine Kinase Troponin I Total Protein 7.7 Albumin 4.5 Urine Color Urine Clarity Urine pH Ur Specific [place] Urine Protein Urine Ketones Urine Blood Urine Nitrite Urine Bilirubin Urine Urobilinogen Ur Leukocyte Esterase Urine RBC Urine WBC Ur Epithelial Cells Urine Crystals Urine Bacteria Urine Casts Urine Mucus Ur Culture Indicated? Urine Glucose COVID-19 Source Nasal/Nares SARS-CoV-2 (PCR) Negative Add-On Test Request Patient ABO/Rh Antibody Screen 06/07/22 06/07/22 06/07/22 16:17 16:31 17:11 WBC RBC Hgb Hct MCV MCH MCHC RDW Plt Count MPV Immature Gran % Neutrophils % Lymphocytes % Monocytes % Eosinophils % Basophils % Nucleated RBC % Absolute Neutrophils Absolute Lymphocytes Absolute Monocytes Absolute Eosinophils Absolute Basophils PT 9.9 INR 1.0 Sodium Potassium Chloride Carbon Dioxide Anion Gap BUN Creatinine Est GFR (CKD-EPI 2020) Glucose Calcium Magnesium Total Bilirubin AST ALT Alkaline Phosphatase Creatine Kinase Troponin I Total Protein Albumin Urine Color Yellow Urine Clarity Clear Urine pH 7.0 Ur Specific [place] 1.025 Urine Protein Negative Urine Ketones Negative Urine Blood Trace-intact H Urine Nitrite Negative Urine Bilirubin Negative Urine Urobilinogen 0.2 Ur Leukocyte Esterase Negative Urine RBC 3-5 H Urine WBC Negative Ur Epithelial Cells Rare Urine Crystals Negative Urine Bacteria Negative Urine Casts Negative Urine Mucus Negative Ur Culture Indicated? No Urine Glucose Negative COVID-19 Source SARS-CoV-2 (PCR) Add-On Test Request Patient ABO/Rh O Positive Antibody Screen NEGATIVE 06/07/22 06/08/22 06/08/22 21:11 05:55 05:55 WBC 10.58 RBC 3.81 L Hgb 10.8 L Hct 33.4 L MCV 88 MCH 28.3 MCHC 32.3 RDW 13.5 Plt Count 220 MPV 10.2 Immature Gran % Neutrophils % Lymphocytes % Monocytes % Eosinophils % Basophils % Nucleated RBC % Absolute Neutrophils Absolute Lymphocytes Absolute Monocytes Absolute Eosinophils Absolute Basophils PT INR Sodium 138 Potassium 4.2 Chloride 103 Carbon Dioxide 27.8 Anion Gap 7.2 BUN 15 Creatinine 0.9 Est GFR (CKD-EPI 2020) 63.83 Glucose 118 H Calcium 8.7 Magnesium 2.0 Total Bilirubin 0.5 AST 23 ALT 21 Alkaline Phosphatase 92 Creatine Kinase 218 H Troponin I < 50 < 50 Total Protein 7.0 Albumin 3.5 Urine Color Urine Clarity Urine pH Ur Specific [place] Urine Protein Urine Ketones Urine Blood Urine Nitrite Urine Bilirubin Urine Urobilinogen Ur Leukocyte Esterase Urine RBC Urine WBC Ur Epithelial Cells Urine Crystals Urine Bacteria Urine Casts Urine Mucus Ur Culture Indicated? Urine Glucose COVID-19 Source SARS-CoV-2 (PCR) Add-On Test Request Patient ABO/Rh Antibody Screen 06/08/22 09:47 WBC RBC Hgb Hct MCV MCH MCHC RDW Plt Count MPV Immature Gran % Neutrophils % Lymphocytes % Monocytes % Eosinophils % Basophils % Nucleated RBC % Absolute Neutrophils Absolute Lymphocytes Absolute Monocytes Absolute Eosinophils Absolute Basophils PT INR Sodium Potassium Chloride Carbon Dioxide Anion Gap BUN Creatinine Est GFR (CKD-EPI 2020) Glucose Calcium Magnesium Total Bilirubin AST ALT Alkaline Phosphatase Creatine Kinase Troponin I Total Protein Albumin Urine Color Urine Clarity Urine pH Ur Specific [place] Urine Protein Urine Ketones Urine Blood Urine Nitrite Urine Bilirubin Urine Urobilinogen Ur Leukocyte Esterase Urine RBC Urine WBC Ur Epithelial Cells Urine Crystals Urine Bacteria Urine Casts Urine Mucus Ur Culture Indicated? Urine Glucose COVID-19 Source SARS-CoV-2 (PCR) Add-On Test Request COMPLETED Patient ABO/Rh Antibody Screen Objective Narrative Objective Narrative: Postoperative x-ray scrutinize showing reduced, implanted left hemiarthroplasty. No signs of periprosthetic fracture. Subtle finding distal to stem on single AP view probably from behind this thigh or soft tissues. Difficult to assess leg lengths due to positioning, but operative side possibly 5-10 mm long
[2022-06-08] MEDS: cefTRIAXone 2 GM/50 ML BAG IVPB (20:49)
[2022-06-08] MEDS: Aspirin E.C. 81 MG TABEC PO (20:49)
[2022-06-09] VITALS (7 sets, daily range): BP systolic 145–193; BP diastolic 58–80; PULSE 69–90; RESP 16–19; TEMP 36.8–37.6; O2SAT 91–97
[2022-06-09] MEDS: ceFAZolin 1,000 MG VIAL 1000 MG IVPB (00:37)
[2022-06-09] MEDS: Normal Saline 100 ML 200 ML (00:46)
[2022-06-09] MEDS: ACETAMINOPHEN 1,000 MG/100 ML BTL 400 MG IVPB ×2 (01:37→09:07)
[2022-06-09] MEDS: Metoprolol 25 MG TAB PO ×4 (02:32→20:52)
[2022-06-09] MEDS: Normal Saline 1,000 ML 125 ML IV ×2 (05:40→14:45)
[2022-06-09 06:20] LABS: Abs Immature Grans 0.05 10^3/uL (0.0-0.06); Absolute Basophil Count 0.01 10^3/uL (0.0-0.2); Absolute Lymphocyte Count 0.66 10^3/uL (1.2-3.4); Basophils % 0.1; HCT 32.9 % (36.0-46.0); Immature Grans % 0.4; Lymphocytes % 5.9; MCHC 33.4 % (32.0-36.0); MCV 87 fL (80-95); MPV 11.4 fL (8.0-11.0); Monocytes % 7.5; Neutrophils % 86.1; Platelet Count 211 10^3/uL (130-400); RBC 3.79 10^6/uL (3.93-5.22); RDW 13.6 % (11.7-14.6); RDW-SD 43.3 fL; WBC 11.27 10^3/uL (4.4-10.8)
[2022-06-09 06:24] LABS: Absolute Monocyte Count 0.85 10^3/uL (0.1-0.8)
[2022-06-09 06:25] LABS: Anion Gap 12.6 mmol/L (3-11); BUN 17 mg/dL (7-18); CO2 23.4 mmol/L (21.0-32.0); CREATININE 0.9 mg/dL (0.55-1.02); Calcium 8.6 mg/dL (8.5-10.1); Chloride 102 mmol/L (98-107); Estimated GFR 63.83 (mL/min/1.73m2); Glucose 150 mg/dL (74-106); Magnesium 1.9 mg/dL (1.8-2.4); Potassium 3.4 mmol/L (3.5-5.1); Sodium 138 mmol/L (136-145)
--- NOTE | 2022-06-09 08:06 | PT.INIE ---
PT Notes Visit Reasons: Subcapital Fracture Left Hip, Pneumonia Inpatient Physical Therapy Evaluation Date: 06/09/22 Referring Doctor: Dr. Guzman PT Orders: PT CONSULT: s/p left hip hemiarthroplasty Precautions: posterior hip precautions Patient Profile/Admitting Diagnosis: Patient admitted 06/08/22 after mechanical fall resulting in left subcapital hip fracture. Underwent left hip hemiarthroplasty performed by Dr. Guzman 06/08/22. PT orders received for post-op evaluation and treatment. PMHX: All Active Problems?(Updated 06/08/22 @ 07:27 by Mohit Morin) Pneumonia (Acute) Closed fracture of left hip (Acute) Displaced fracture of left femoral neck (Acute 06/07/22) Right hip pain (Acute) Hydronephrosis, right (Acute) Hypertension (Chronic) Advance directive on file (Acute) Hyperglycemia (Acute) STANLEY (acute kidney injury) (Acute) Medical History? Choledocholithiasis Elevated troponin NSTEMI (non-ST elevated myocardial infarction) Porcelain gallbladder Social History/Home Situation: Sharda is and lives alone in [facility].? She states family members check in on her regularly and sometimes spend the night at her home, as she doesn't like to be home alone at nighttime.? She has six adult children, many of whom live locally and are supportive of her.? Prior to falling and fracturing her hip, she was independent with her ADLs. Equipment Owned/DME: unclear Subjective: At initiation of session, Li is getting up with assistance of 2 nurses to use the commode. States that she walked earlier today as well. She provides deviating history, but reports that she walks at 10 minutes at a time with family members present. Objective: General Observation: IV in LUE. No additional lines. Mental Status: Alert and oriented. Difficulty following commands during session, with poor safety awareness. Unable to verbalize hip precautions, and difficulty maintaining despite reminders. Able to provide clear history, although demonstrates episodes of confusion and agitation, at one point referencing her IV line as her glasses. Pain: sore ROM: Right Upper Extremity: WFL Left Upper Extremity: WFL Right Lower Extremity: WFL Left Lower Extremity: Hip flexion functionally to 85 or greater. Knee motion shows full extension. Strength: Right Upper Extremity: WFL. Triceps 4+/5 bilat. Left Upper Extremity: WFL. Triceps 4+/5 bilat. Right Lower Extremity: Hip flexion 4/5. Quads 4+/5. Ankle DF 4+/5. Left Lower Extremity: Quads 3-/5. Ankle DF 3/5 or greater (formal MMT not assessed) Sensation: intact distally Bed Mobility/Transfers: sit-stand: min A stand-sit: mod A, max cues for safety scooting in chair: independent Gait: ambulates 6' with min A x 2, max cues for safety and proper equipement management. In static standing, she requires max cues for forward weight shift, as she relies heavily on LE support to chair. Requires stabilization of commode for safe transfer due to posterior lean. During session, patient attempts to get up on her on on several occasions. Post-treatment, she remained in chair with chair alarm in place, call mathur at side. Balance: Static Sitting: good Dynamic Sitting: fair Static Standing: fair Dynamic Standing: poor Special Tests: Mobility Limitations Standardized Measure [facility] AM-PAC 6 clicks Basic Mobility Inpatient Short Form: Raw Score: 14 CMS Score: 61% impairment Informed Consent/Education: Patient instructed in purpose of PT consult and plan of care. Therapeutic Exercises ([id number]): sit-stand 6x, max cues, reducing safety and increasing difficulty following commands LAQ 10x, max cues ankle pumps 10x glute sets 10x Assessment: Patient is a 82 year old female referred to physical therapy services with the diagnosis of left hip fx s/p left hip hemiarthroplasty post-op day 1. Patient presents with clinical signs and symptoms consistent with post-op status, and complicated by cognitive impairments and limited safety awareness. She rquires skilled PT intervention to maximize mobility and safety, and will likely require a brief rehab stay prior to returning home. She currently demonstrated by the following impairment level findings: 1. decreased LE strength 2. decreased safety awareness 3. unable to independently ambulate Impairments are contributing to the following functional limitations: 1. unable to safely ambulate independently 2. decreased independence with transfers and bed mobility 3. decreased safety awareness 4. high fall risk Patient is assessed as Moderate [id number] complexity based on the following: History: 82 year old female presenting 1 day s/p left LEXI. Complicated by cognitive impairments and decreased safety awareness. Examination: functional limitations as above Presentation: evolving Decision Making: moderate Goals: Goals X1 week 1. Supine-Sit : supervision 2. Sit-Supine supervision 3. Sit-Stand supervision 4. Stand-Sit supervision 5. Bed-Chair supervision with FWW 6. Chair-Bed supervision with FWW 7. Gait supervision with FWW x 25' Plan of Care/Treatment Plan: 1-2x/day, 7 days/week x 1 week. Plan of care has been reviewed with the [employer] HELPER providing the service under Physical Therapy direction. Initiate Physical Therapy intervention for strengthening, bed mobility, transfers, gait, stairs, balance training, use of assistive device. DISCHARGE RECOMMENDATIONS: SNF for continued rehabilitation TREATMENT CODE/TIME: 8:05-8:45 ([id number], [id number]) Sofie Landry, PT, DPT [facility]
[2022-06-09] MEDS: ceFAZolin 1 GM/50 ML BAG IVPB ×2 (08:09→15:15)
[2022-06-09] MEDS: traMADol 50 MG TAB PO ×2 (08:10→13:55)
[2022-06-09] MEDS: Aspirin E.C. 81 MG TABEC PO ×2 (08:10→20:52)
[2022-06-09] MEDS: MORPHine 4 MG/ML SYR IVP ×2 (09:07→20:53)
[2022-06-09] MEDS: DOXYCYCLINE 100 MG in Normal Saline 100 ML IVPB ×2 (10:28→22:43)
--- NOTE | 2022-06-09 10:34 | W.ANESPOSTOP ---
Postoperative Evaluation Date, Time and Location Date Performed: 06/09/22 Time Performed: 10:34 Patient Location: Med/Surg Vital Signs Most Recent Imported Vital Signs: Most Recent Vital Signs Temp Pulse Resp BP Pulse Ox 37.6 C H 90 18 193/80 H 92 06/09/22 08:06 06/09/22 08:06 06/09/22 08:06 06/09/22 08:06 06/09/22 08:06 Pain Score Most Recent Pain Score: Most Recent Pain Score Pain Level [Left Hip] 10 06/09/22 08:45 Pain Level [Left Hip] 10 06/07/22 15:53 Pain Level 10 06/09/22 09:07 Assessment Mental Status: Awake but Confused Airway and Respiratory Function: Patent airway with normal (patient baseline) respiratory exam Cardiovascular Function: Hemodynamically Stable Hydration Status: Adequately Hydrated Nausea & Vomiting: No Nausea or Vomiting Pain: Pain is tolerable per patient Peripheral Nerve Block: Patient did not receive a nerve block Postoperative Comments:: Was very disoriented on arrival to PACU last night. Yelling, hitting, trying to get up and out of bed. Brought to her room on the floor where her family was in hope that it would help calm her. The stated that they do not think this happened for her ERCP, or lap marlene at [facility] (unclear in the notes also), but that she took a long time to wake up and was very groggy for a while so it may have been masked by that. Her fmaily also state that they wounder if she is getting dementia as when they go to visit sometimes she is unsure of who they are. This AM she is much more calm, but is still confused.
[2022-06-09] MEDS: Naproxen 500 MG TAB 250 MG PO ×2 (11:19→20:53)
--- NOTE | 2022-06-09 13:58 | W.PM.PROGNOT ---
Date of Service Date of service: 06/09/22 Time of Service: 14:01 Assessment and Plan Assessment and plan (1) Displaced fracture of left femoral neck: Status: Acute Assessment and plan: 82-year-old female postop day #0 status post Left posterior hip hemiarthroplasty Chart reviewed. Anticipate postoperative progress to be more challenging due to combination or pre-existing ambulatory and cognitive dysfunction. Continue multimodal pain control Physical therapy: Weightbearing as tolerated with assist device. Avoid deep hip flexion with adduction and internal rotation for 6 weeks. Aspirin 81 mg twice daily for dvt ppx x30 days Mechanical DVT prophylaxis with SCDs and/or SHANEKA hose while in hospital Discharge when medically appropriate I will see the patient tomorrow Follow-up with Dr. Guzman outpatient [facility] in 2 to 3 weeks Appreciate medical management Objective Last Vital Signs Temp 99.5 F 06/09/22 11:42 Pulse 80 06/09/22 11:42 Resp 19 06/09/22 11:42 BP 173/65 H 06/09/22 11:42 Pulse Ox 91 L 06/09/22 11:42 Laboratory Results - last 24 hr 06/09/22 06/09/22 05:17 05:17 WBC 11.27 H RBC 3.79 L Hgb 11.0 L Hct 32.9 L MCV 87 MCH 29.0 MCHC 33.4 RDW 13.6 Plt Count 211 MPV 11.4 H Immature Gran % 0.4 Neutrophils % 86.1 Lymphocytes % 5.9 Monocytes % 7.5 Eosinophils % 0.0 Basophils % 0.1 Nucleated RBC % 0.0 Absolute Neutrophils 9.70 H Absolute Lymphocytes 0.66 L Absolute Monocytes 0.85 H Absolute Eosinophils 0.00 Absolute Basophils 0.01 Sodium 138 Potassium 3.4 L Chloride 102 Carbon Dioxide 23.4 Anion Gap 12.6 H BUN 17 Creatinine 0.9 Est GFR (CKD-EPI 2020) 63.83 Glucose 150 H Calcium 8.6 Magnesium 1.9
[2022-06-09] MEDS: Acetaminophen 500 MG TAB 1000 MG PO (15:16)
--- NOTE | 2022-06-09 17:06 | W.PM.PROGNOT ---
Date of Service Date of service: 06/09/22 Time of Service: 17:07 Assessment and Plan Assessment and plan (1) Displaced fracture of left femoral neck: Status: Acute Assessment and plan: POD 1 surgical repair continue routine post operative care. pain management, pulmonary toileting, pt/ot (2) Hypertension: Status: Chronic Assessment and plan: continue home medication and monitor Qualifiers: Hypertension type: essential hypertension Qualified Code(s): I10 - Essential (primary) hypertension (3) Hyperglycemia: Status: Acute Assessment and plan: likely stress response from trauma, blood sugars have been controlled. will discontinue discussed with Dr Rayo Subjective Subjective Patient reports: no new complaints, tolerating liquids well, tolerating a regular diet (poor po intake), voiding w/o difficulty (pulled sheppard out last night) and afebrile; denies shortness of breath Interval history since last seen: patient remains pleasantly confused, family report she is at her baseline Exam Const General: cooperative, comfortable, no acute distress and frail appearing Nutritional Appearance: average body habitus Orientation: alert, awake and oriented to person [facility] Head: normal to inspection and normocephalic Mouth: oral mucosae normal Resp Effort & Inspection: normal respiratory effort Auscultation: clear to auscultation bilaterally Cardio Rate: regular rate Rhythm: regular rhythm GI Inspection: normal to inspection Palpation: soft Skin Lesions: other (surgical incision not visualized, no surrounding erythema) Extrem General: normal to inspection and abnormal ROM Objective Last Vital Signs Temp 36.9 C 06/09/22 14:59 Pulse 72 06/09/22 14:59 Resp 16 06/09/22 14:59 BP 166/68 H 06/09/22 14:59 Pulse Ox 97 06/09/22 14:59 Laboratory Results - last 24 hr 06/09/22 06/09/22 05:17 05:17 WBC 11.27 H RBC 3.79 L Hgb 11.0 L Hct 32.9 L MCV 87 MCH 29.0 MCHC 33.4 RDW 13.6 Plt Count 211 MPV 11.4 H Immature Gran % 0.4 Neutrophils % 86.1 Lymphocytes % 5.9 Monocytes % 7.5 Eosinophils % 0.0 Basophils % 0.1 Nucleated RBC % 0.0 Absolute Neutrophils 9.70 H Absolute Lymphocytes 0.66 L Absolute Monocytes 0.85 H Absolute Eosinophils 0.00 Absolute Basophils 0.01 Sodium 138 Potassium 3.4 L Chloride 102 Carbon Dioxide 23.4 Anion Gap 12.6 H BUN 17 Creatinine 0.9 Est GFR (CKD-EPI 2020) 63.83 Glucose 150 H Calcium 8.6 Magnesium 1.9
[2022-06-09] MEDS: cefTRIAXone 2 GM/50 ML BAG IVPB (20:53)
[2022-06-10 01:09] VITALS: BP 170/75; PULSE 72; RESP 17; TEMP 36.9; O2SAT 93
[2022-06-10] MEDS: Acetaminophen 500 MG TAB 1000 MG PO ×3 (01:12→16:13)
[2022-06-10] MEDS: Metoprolol 25 MG TAB PO ×3 (01:12→13:29)
[2022-06-10] MEDS: Normal Saline 1,000 ML 125 ML IV (01:34)
[2022-06-10] MEDS: MORPHine 4 MG/ML SYR IVP ×2 (01:34→04:27)
[2022-06-10] MEDS: Normal Saline Flush 10 ML SYR IVP ×2 (04:28→09:52)
[2022-06-10 04:32] VITALS: BP 179/67; PULSE 56; RESP 17; TEMP 36.4; O2SAT 93
[2022-06-10] MEDS: traMADol 50 MG TAB PO ×2 (05:54→13:29)
--- NOTE | 2022-06-10 07:38 | W.PM.PROGNOT ---
Date of Service Date of service: 06/10/22 Time of Service: 07:30 Assessment and Plan Assessment and plan (1) Displaced fracture of left femoral neck: Status: Acute Assessment and plan: 82-year-old female postop day #2 status post Left posterior hip hemiarthroplasty Patient seen. Improving. Postoperative progress probably more challenging due to combination or pre-existing ambulatory and cognitive dysfunction. Continue multimodal pain control Physical therapy: Weightbearing as tolerated with assist device. Avoid deep hip flexion with adduction and internal rotation for 6 weeks. Aspirin 81 mg twice daily for dvt ppx x30 days Mechanical DVT prophylaxis with SCDs and/or SHANEKA hose while in hospital Discharge when medically appropriate Follow-up with Dr. Guzman outpatient [facility] in 2 to 3 weeks Appreciate medical management Please call me directly with any questions or concerns about this patient Subjective Subjective Interval history since last seen: No complaints. Resting comfortably in hospital bed. Denies any issues with the left hip or lower extremity including numbness or tingling. Mental status seems more appropriate this morning. Exam Narrative Exam Narrative: Comfortable, left hip bandage clean dry intact. Mild edema and ecchymosis surrounding. Demonstrates impressively intact left straight leg raise. Intact plantar flexion dorsiflexion strongly about the ankle. Sensation intact throughout to light touch without paresthesia. No signs of blood clot or infection. Patient positioned at an angle in hospital bed so still difficult to assess leg lengths but operative left side may be about a centimeter longer than the right. Objective Last Vital Signs Temp 97.6 F 06/10/22 04:32 Pulse 56 L 06/10/22 04:32 Resp 17 06/10/22 04:32 BP 179/67 H 06/10/22 04:32 Pulse Ox 93 06/10/22 04:32
[2022-06-10 07:48] VITALS: BP 189/66; PULSE 68; RESP 16; TEMP 36.8; O2SAT 92
--- NOTE | 2022-06-10 08:00 | DI.US_ITS ---
APPROVED REPORT EXAM: Comprehensive 2D, Doppler, and color-flow Echocardiogram Patient Location: In-Patient Room/Bed: 227 Aircraft Engine Dismantler: Tali Roman RDCS (AE) Indications: Syncope Other Information Study Quality: Fair. Technically limited study due to body habitus, inability to position patient exa m done supine bedside.. Conclusion Normal left ventricular wall thickness and chamber size. Estimated ejection fraction is 55%. Wall m otion is normal Normal right ventricular size and systolic function Both atria are normal in size Aortic valve is trileaflet and sclerotic with trace regurgitation Moderate mitral annular calcification. Mild mitral regurgitation Normal tricuspid valve with moderate regurgitation. Estimated right ventricular systolic pressure is 41 mmHg Borderline dilated ascending aorta measuring 3.53 cm Wall motion Left Ventricle The left ventricle is normal size. The left ventricular systolic function is normal. The left ventric ular ejection fraction is within the normal range. There is normal left ventricular wall thickness. E cho findings are consistent with a left ventricular outflow tract obstruction. There is normal LV seg mental wall motion. There is no ventricular septal defect visualized. LVEF is 55%. Right Ventricle The right ventricle is normal size. The right ventricular systolic function is normal. The RVSP is 40 .5 mmHg. Atria The left atrium size is normal. The right atrium size is normal. The interatrial septum is intact wit h no evidence for an atrial septal defect. Aortic Valve The Aortic valve is sclerotic. Aortic valve is trileaflet. There is no aortic valvular stenosis. Trac e aortic regurgitation. Mitral Valve Moderate mitral annular calcification. No evidence of mitral valve stenosis. Mild mitral regurgitatio n. Tricuspid Valve The tricuspid valve is normal in structure. There is no tricuspid valve stenosis. Moderate tricuspid regurgitation. Pulmonic Valve The pulmonary valve is normal in structure. There is no pulmonic valvular stenosis. Trace pulmonic re gurgitation. Great Vessels The aortic root is normal in size. The ascending aorta is mildly dilated. IVC is normal in size and c ollapses >50% with inspiration. Pericardium There is no pericardial effusion. 2D Dimensions IVSD d PLAX 0.93 cm F: 0.6-1.0 LV Vol A2C d MOD 44.6 mL LVPW d PLAX 0.87 cm F: 0.6 - 1.0 LV Vol A4C d MOD 74.9 mL LVID d PLAX 4.07 cm F: 3.8 - 5.2 LA vol/ BSA A2C s A-L 25.0 mL/m2 LVDs 2.80 cm F: 2.2 - 3.5 LA vol/ BSA A4C s A-L 28.5 mL/m2 Ao Root d 2.70 cm F: 2.7 - 3.3 LA Vol/ BSA Biplane s A-L 27.5 mL/m2 RA Area A4C 12.97 cm2 LA Area A4C s MOD 15.25 cm2 RA Vol/ BSA A4C s A-L 21.6 mL/m2 LA Area A2C s MOD 14.72 cm2 Ao Asc Diam d 3.53 cm F: 2.3 - 3.1 LV EF A4C MOD 55.3 % LV EF Teichholz 57.6 % LV EF A2C MOD 55.6 % LVEF (Corrales's) 55.60 % F: 54 - 74 LV EF Biplane MOD 55.6 % LV Volume 49.09 mL F: 46 - 106 SV 32.47 mL LV Volume Index 33.39 mL/m2 F: 29 - 61 SV Index 22.11 mL/m2 LV Vol Biplane MOD 58.4 mL FS 29.90 % M-Mode TAPSE 1.88 cm (M/F) >1.7 LV Diastology MV E' medial 0.065 (>0.07 m/s) E/A Ratio 0.8 LV E/e MED 18.15 (<14) MV E Vmax 1.17 (0.4-1.3 m/s) MV E' lateral 0.057 (>0.1 m/s) MV A Vmax 1.40 (0.4-1.3 m/s) LV E/e LAT 20.65 (<14) MV E/A Ratio 0.83 MV E/E' medial 18.18 MV E/E' lateral 20.69 Aortic Valve LVOT Area 2.85 cm2 AoV Area Vmax 2.08 cm2 LVOT Vmax 1.26 m/s AoV Area/ BSA (Vmax) 1.42 cm2/m2 LVOT Mean Carlo. 0.86 m/s NINI Mean Carlo. 1.99 cm2 LVOT Peak Grad 6.3 mmHg NINI Mean Carlo. Index 1.36 cm2/m2 LVOT Mean Grad 3.4 mmHg LVOT VTI 0.321 m LVOT Diam s 1.90 cm AoV Vmax 1.73 m/s Velocity Ratio 0.73 AoV Mean Carlo. 1.24 m/s AoV Peak Grad 11.9 mmHg LVOT SV 91.65 mL AoV Mean Grad 6.8 mmHg AoV VTI 0.404 m AoV Area VTI 2.27 cm2 AoV Area/ BSA (VTI) 1.54 cm/m2 Mitral Valve MV DT 259 (160-240 msec) MV PHT 75 msec MV Area PHT 2.93 cm2 MV VTI 0.446 m MV Area VTI 2.05 (4.0-6.0 cm2) Pulmonary Valve PV Vmax 0.91 (0.5-1.5 m/s) RVOT Peak Gr. 2.23 mmHg PV Peak Grad 3.3 mmHg RVOT Mean Gr. 1.15 mmHg PV Mean Grad 1.8 mmHg RVOT VTI 0.177 m PV VTI 0.206 m RVOT Vmax 0.75 m/s Tricuspid Valve TR Peak Grad 37.5 mmHg TR Vmax 3.06 m/s RA Pressure 3.00 mmHg RVSP (TR) 40.5 mmHg
[2022-06-10 08:13] VITALS: O2SAT 94
[2022-06-10] MEDS: Aspirin E.C. 81 MG TABEC PO (09:01)
--- NOTE | 2022-06-10 09:28 | PT.INTREAT ---
Date of service: 06/10/22 Time of Service: 08:40 PT Notes Visit Reasons: Subcapital Fracture Left Hip, Pneumonia Inpatient Physical Therapy Treatment Note [facility] Date: 06/10/2022 PRECAUTIONS: Activity as tolerated, Fall, WBAT L SUBJECTIVE: Sharda is pleasant and agreeable to participating in PT. She reports that her hip feels good and that she wants to go home. OBJECTIVE: PAIN: No c/o pain BED MOBILITY/TRANSFERS Sit-stand: SBA with cueing for safety Stand-sit: SBA with cueing for safety GAIT Assistive Device: FWW Weight bearing: Full Assist: SBA Distance: 200' in a.m.; 100' in p.m. Deviation: Assist and instruction for FWW management, step through gait pattern, antalgic gait THEREX: Patient was instructed in a LE strengthening program, completed in a seated position, to include: ankle pumps/heel raises, LAQ, hip flexion and hip abduction. In p.m., patient was instructed in a LE strengthening and stabilization program, completed in a supine position, to include: ankle pumps, quad sets, glute sets, heel slides and hip abduction. She also performs bridging x5 with bed mobility. STAIRS: Attempted to persuade patient to participate in stair training, she repeatedly declined. TOILETING: Patient toileted with assist. ASSESSMENT: Patient tolerated session well without complaint. She was able to tolerate a progression in gait distance with FWW support and SBA, without complaint of pain in L hip. She demonstrates antalgic gait and did require some instruction in proper use of FWW. PLAN: Stair training tomorrow, continued gait and transfer training. TREATMENT CODE/TIME: Session 1: 34 minutes; [id number], [id number] (08:40) Session 2: 26 minutes; [id number], [id number] (14:41)
--- NOTE | 2022-06-10 09:43 | W.PM.PROGNOT ---
Date of Service Date of service: 06/10/22 Time of Service: 09:43 Objective Last Vital Signs Temp 36.8 C 06/10/22 07:48 Pulse 68 06/10/22 07:48 Resp 16 06/10/22 07:48 BP 189/66 H 06/10/22 07:48 Pulse Ox 94 06/10/22 08:13
[2022-06-10] MEDS: Potassium Chloride 20 MEQ TABCR 40 MEQ PO (09:52)
[2022-06-10 11:21] VITALS: BP 195/79; PULSE 62; RESP 16; TEMP 36.6; O2SAT 92
--- NOTE | 2022-06-10 11:24 | CMDISCH_ITS ---
- If Service Date Differs Date of service: 06/10/22 Time of Service: 11:24 LACE Index Scoring Tool - Questions: Length of Stay (in days): 3 Acuity (Admit via E.D.?): Yes Comorbidities: Previous M.I. E.D. Visits: 1 - Answers: Total Score: 8 Risk of Readmission: Low Risk Care Management Discharge Reason for Hospitalization: Subcapital Fracture Left Hip, Pneumonia. Discharge Plan: Sharda will return home with 13/01 caregiver. She will have new orders for [facility] PT through [facility] and transport via private vehicle with family. She will follow up with her PCP and plan of care as prescribed. Patient/Family Education Needs: Review discharge instructions, discuss Ask Me Three. Services Needed at Discharge: Home Health Care Services (PT)
[2022-06-10] MEDS: Doxycycline Hyclate 100 MG CAP PO (12:37)
[2022-06-10] MEDS: Naproxen 500 MG TAB 250 MG PO (13:29)
[2022-06-10 15:42] VITALS: BP 183/83; PULSE 76; RESP 16; TEMP 36.6; O2SAT 92
--- NOTE | 2022-06-10 18:59 | W.PM.DS.N ---
Date of service: 06/10/22 Time of Service: 19:00 DS: Diagnosis Discharge Diagnosis (1) Displaced fracture of left femoral neck: Status: Acute Discharge Plan Disposition Patient Disposition: Home W/Home Health Services Condition: Fair Discharge Details Reason For Visit: Subcapital Fracture Left Hip, Pneumonia Admit Date/Time: 06/07/22 18:53 Admit Provider: Mohit Morin Attending Provider: Mohit Morin Primary Care Provider: Jin Ellis Hospital Course Hospital Course: This is an 82-year-old female patient with past medical history of hypertension, who presented to the [facility] emergency department after having ?blacked out and awakened on the floor.?When she awakened she was on her left side.? She had some discomfort when trying to move, EMS was called and she was brought to the ED. ?She was found to have a displaced subcapital fracture of the left hip which required repair.? Cardiovascular work-up was negative.?She had no chest pressure or chest pain.? She had no presyncopal symptoms other than blacking out.? She was very vague about her history.? This does not appear to be a recurrent problem or frequent.? She was given morphine for pain with good results.? She was brought to the operating room by orthopedics and underwent left posterior hip hermiarthroplasty. She did well post op and physical therapy felt she was appropriate to go home with home health physical therapy. She is cared for by her daughter in the Patient?s home. She is discharged stable with referral to home health and below instructions. Discussed with Dr Rayo and Dr Guzman. Home Meds and New Rx's Prescriptions: New aspirin 81 mg Tablet,Delayed Release (Dr/Ec) 81 mg PO BID Qty: 0 0RF docusate sodium [Colace] 100 mg Capsule 100 mg PO TID PRN PRNQty: 0 0RF naproxen 500 mg Tablet 250 mg PO BID PRN PRNQty: 0 0RF Continued amlodipine 5 mg tablet 5 mg PO DAILY Qty: 90 3RF diclofenac sodium 3 % gel 1 applic topical BID PRN (Reason: pain) Qty: 100 0RF Discharge Instructions Instructions: ORIF of Hip Fracture (DC) Additional Instructions: Continue Naprosyn orally and diclofenac gel topically for pain Take Aspirin 81 mg twice daily 30 days Home Health Physical therapy: Weightbearing as tolerated with assist device.? Avoid deep hip flexion with adduction and internal rotation for 6 weeks. Stand Alone Forms: Nursing Discharge Form Referrals: Jin Ellis RAND [facility]KER [Primary Care Provider] - 07/03/22 2:00 pm (Follow up in 1-2 weeks) Tay Guzman MD [ [facility] STAFF PHYSICIAN] - 06/25/22 8:30 am (Follow-up with Dr. Guzman outpatient [facility] in 2 to 3 weeks) Activity:: Activity as Tolerated Equipment/Supplies:: Walker Diet:: As Tolerated Discharge Orders Discharge Orders: Discharge Order (Routine); Ordered 06/10/22 Ordered By: Neli Macias Discharge Data Discharge Date/Time-TO BE ENTERED AT DEPARTURE: 06/10/22 17:12 DS: Summary Time Spent with Patient providing and/or coordinating discharge services: Greater than 30 minutes Status at Discharge Functional status at discharge: uses cane/walker Overall status at discharge: patient is progressing back to baseline Mental Status: mental status grossly normal Speech and Movement: speech and movement normal Mood: congruent mood Affect: normal affect Exam Const General: cooperative, comfortable, no acute distress and frail appearing Nutritional Appearance: average body habitus Orientation: alert, awake and oriented to person HENMT Head: normal to inspection and normocephalic Mouth: oral mucosae normal Resp Effort & Inspection: normal respiratory effort Auscultation: clear to auscultation bilaterally Cardio Rate: regular rate Rhythm: regular rhythm GI Inspection: normal to inspection Palpation: soft Skin Lesions: other (surgical incision not visualized, no surrounding erythema) Extrem General: normal to inspection and abnormal ROM Psych Mental Status: mental status grossly normal Speech and Movement: speech and movement normal Mood: congruent mood Affect: normal affect DS: Data Vitals/I&O Vitals and I&O: Vital Signs Temperature 36.6 C 06/10/22 15:42 Temperature Source Tympanic 06/10/22 15:42 Pulse 76 06/10/22 15:42 Pulse Rhythm Regular 06/10/22 15:10 Pulse 76 06/08/22 07:40 Respiratory Rate 16 06/10/22 15:42 Respiratory Effort Non-Labored 06/10/22 15:10 Respiratory Depth Normal 06/10/22 15:10 Respiratory Pattern Normal 06/10/22 15:10 Blood Pressure 183/83 H 06/10/22 15:42 Blood Pressure Mean 87 06/08/22 07:31 Blood Pressure Position Sitting 06/07/22 15:47 Pulse Oximetry 92 06/10/22 15:42 Respiratory End-tidal CO2 26 06/08/22 18:15 Oxygen Delivery Method Room Air 06/10/22 15:42 Oxygen Flow Rate 0 06/10/22 15:42 Pain Level 0 06/10/22 15:42 Comment 06/08/22 21:19 Intake & Output 06/09/22 06/10/22 06/10/22 23:59 11:59 23:59 Intake Total 2620 / 2970 300 / 420 120 / 420 Output Total 1000 / 2050 975 / 1375 400 / 1375 Balance 1620 / 920 -675 / -955 -280 / -955 Intake: IV 2300 / 2650 / Oral 320 / 320 280 / 400 120 / 400 Output: Urine 1000 / 2050 975 / 1375 400 / 1375 Other: Urine Color Yellow Yellow Yellow Urine Appearance Clear Clear Clear Urine Odor Normal Normal None Comment pt very little voided maybe a drip Voiding Methods Bedside Commode Bedside Commode Bedside Commode PFSH All Active Problems (Updated 06/09/22 @ 10:38 by Alfredo Ricci CRNA) Postoperative delirium (Acute) Pneumonia (Acute) Closed fracture of left hip (Acute) Displaced fracture of left femoral neck (Acute 06/07/22) Right hip pain (Acute) Hydronephrosis, right (Acute) Hypertension (Chronic) Advance directive on file (Acute) Hyperglycemia (Acute) STANLEY (acute kidney injury) (Acute) Medical History Choledocholithiasis Elevated troponin NSTEMI (non-ST elevated myocardial infarction) Porcelain gallbladder Surgical History History of bilateral tubal ligation Social History Smoking/Tobacco Use Status: Never Smoking risk assessment performed?: Yes Alcohol Intake: never Drug use: Never Substance use type: does not use Caregiver/Support person: No (Family checks in regularly) Household members: family Housing: house Number of Children: 6 Communication Needs: Hard of Hearing Do you need help understanding health information?: Always Pets and animals: No Sexually active: No Current gender identity: female What is your relationship status?: How often do you talk on the phone with friends or family?: three or more times per week How often do you get together with friends or relatives?: three or more times per week How often do you attend anabaptism or pentecostalism services?: decline to answer Do you belong to any clubs or organized social groups?: no Panel score (0-1 are the most socially isolated patients): 1 What type of physical activity do you participate in: walking Duration: 30-45 minutes/day Frequency: daily Dilia/Anabaptism: None Special dilia needs: No Agree to transfusion: No Seatbelt use: always Helmet use: No Drive intox or ride w/intox water truck driver: No Do you feel safe at home: Yes Do you feel safe in your relationship?: Yes Victim of physical abuse: No Victim of emotional abuse: No Victim of sexual abuse: No Would you like helpful sources: No History History 6 Para 6 Hx # Term Pregnancies Multiple births Hx # Pregnancies Ectopic pregnancies AB induced Hx Number of Living Children 6 AB spontaneous
--- NOTE | 2022-06-10 19:26 | PDOC.HHF2F_ITS ---
Home Health Referral Home Health Orders Clinical synopsis of why skilled professionals are needed: This is an 82-year-old female patient with past medical history of hypertension, who presented to the [facility] emergency department after having ?blacked out and awakened on the floor.?When she awakened she was on her left side.? She had some discomfort when trying to move, EMS was called and she was brought to the ED. ?She was found to have a displaced subcapital fracture of the left hip which required repair.? Cardiovascular work-up was negative.?She had no chest pressure or chest pain.? She had no presyncopal symptoms other than blacking out.? She was very vague about her history.? This does not appear to be a recurrent problem or frequent.? She was given morphine for pain with good results.? She was brought to the operating room by orthopedics and underwent left posterior hip hermiarthroplasty. She did well post op and physical therapy felt she was appropriate to go home with home health physical therapy. She is cared for by her daughter in the Patient?s home.? She is discharged stable with referral to home health and below instructions. Medical diagnosis necessitation home health referral: Fractured left hip. Physical Therapist: Check all that apply Increase strength & endurance for safe mobility at home: Ordered To design/establish home maintenance program: Ordered Fall reduction therapy program for patient with history of frequent falls: Ordered Home safety evaluation and teaching/gait training including stair management (if applicable): Ordered Home Bound Status Requires the aid of supportive device (check all that apply): Walker Assistance of another person (Describe assistance and medical necessity): requires patient care assistant of another person and a device to ambulate safely outdoors. Encounter Date and Reason: I certify that a FTF encounter for this patient was performed on June 10, 2022 and that such encounter was related to the primary reason the patient requires home health services. The encounter was conducted in the following manner: * By me as the certifying physician, NATURAL RESOURCES TECHNICIAN, PA or * By an inpatient physician, NATURAL RESOURCES TECHNICIAN or PA during an inpatient stay who communicated findings to me, Certification And Authentication I certify that I composed the above information based on my clinical judgment relating to this patient's medical condition and, if applicable, clinical findings communicated to me by the NPP or inpatient physician who performed the FTF encounter. Name of Provider that will be monitoring home health services: Jin Ellis
--- NOTE | 2022-06-11 17:22 | PT.INDS ---
Date of service: 06/11/22 Time of Service: 17:22 PT Notes Visit Reasons: Subcapital Fracture Left Hip, Pneumonia Inpatient Physical Therapy Evaluation Date: 06/11/22 Dates of service: 06/09/2022 through 06/10/2022 This is a clinical summary of care provided for the duration of dates listed above. No charge was made in the completion of this documentation. Referring Doctor:? Dr. Guzman PT Orders: PT CONSULT: s/p left hip hemiarthroplasty Precautions: posterior hip precautions Patient Profile/Admitting Diagnosis:??Patient admitted 06/08/22 after mechanical fall resulting in left subcapital hip fracture. Underwent left hip hemiarthroplasty performed by Dr. Guzman 06/08/22. PT orders received for post-op evaluation and treatment. PMHX: All Active Problems?(Updated 06/08/22 @ 07:27 by Mohit Morin) Pneumonia (Acute) Closed fracture of left hip (Acute) Displaced fracture of left femoral neck (Acute 06/07/22) Right hip pain (Acute) Hydronephrosis, right (Acute) Hypertension (Chronic) Advance directive on file (Acute) Hyperglycemia (Acute) STANLEY (acute kidney injury) (Acute) Medical History? Choledocholithiasis Elevated troponin NSTEMI (non-ST elevated myocardial infarction) Porcelain gallbladder Social History/Home Situation: Sharda is and lives alone in [facility].? She states family members check in on her regularly and sometimes spend the night at her home, as she doesn't like to be home alone at nighttime.? She has six adult children, many of whom live locally and are supportive of her.? Prior to falling and fracturing her hip, she was independent with her ADLs. Equipment Owned/DME: unclear Subjective:?NT. See most recent CLOTHING BUSHELER notes. Objective:? General Observation: NT. See most recent CLOTHING BUSHELER notes. Mental Status: NT. See most recent CLOTHING BUSHELER notes. Pain: NT. See most recent CLOTHING BUSHELER notes. ROM: Right Upper Extremity: WFL Left Upper Extremity: WFL Right Lower Extremity: WFL Left Lower Extremity: Hip flexion functionally to 85 or greater. Knee motion shows full extension. Strength: Right Upper Extremity: WFL. Triceps 4+/5 bilat. Left Upper Extremity: WFL. Triceps 4+/5 bilat. Right Lower Extremity: Hip flexion 4/5. Quads 4+/5. Ankle DF 4+/5. Left Lower Extremity: Quads 3-/5. Ankle DF 3/5 or greater (formal MMT not assessed) Sensation:?intact distally BED MOBILITY/TRANSFERS? Sit-stand: SBA with cueing for safety ? Stand-sit: SBA with cueing for safety ? GAIT? Assistive Device: FWW? Weight bearing: Full Assist: SBA ? Distance:? 200' in a.m.; 100' in p.m.? Deviation: Assist and instruction for FWW management, step through gait pattern, antalgic gait Balance:? Static Sitting: good Dynamic Sitting: fair Static Standing: fair Dynamic Standing: poor Assessment:?? Patient is a 82 year old female referred to physical therapy services with the diagnosis of left hip fx s/p left hip hemiarthroplasty post-op day 1.? Patient presents with clinical signs and symptoms consistent with post-op status, and complicated by cognitive impairments and limited safety awareness. She rquires skilled PT intervention to maximize mobility and safety, and will likely require a brief rehab stay prior to returning home. She currently demonstrated by the following impairment level findings: 1. decreased LE strength 2. decreased safety awareness 3. unable to independently ambulate ?Impairments are contributing to the following functional limitations: 1. unable to safely ambulate independently 2. decreased independence with transfers and bed mobility 3. decreased safety awareness 4. high fall risk Goals: Goals X1 week 1. Supine-Sit : supervision NOT MET 2. Sit-Supine? supervision NOT MET 3. Sit-Stand? supervision NOT MET 4. Stand-Sit? supervision NOT MET 5. Bed-Chair? supervision with FWW NOT MET 6. Chair-Bed? supervision with FWW NOT MET 7. Gait? supervision with FWW x 25' NOT MET DISCHARGE RECOMMENDATIONS: SNF for continued rehabilitation TREATMENT CODE/TIME: NC Thank you for the opportunity to participate in the care of this patient. Lsiette Farfan PT, DPT, CLT [facility] [place], [place]
== END 2022-06-10 17:12 | disposition home health service (06) | DRG 521 ==
LOC: ER 19:20 → MS 06-08 08:02
PROVIDERS: Internal Medicine; Student in an Organized Health Care Education/Training Program; Admitting Provider Family Medicine; Emergency Provider Emergency Medicine; PCP Nurse Practitioner Family; Visit Provider Family Medicine
PROC: 0SRS0JA Replacement of Left Hip Joint, Femoral Surface with Synthetic Substitute, Uncemented, Open Approach (ICD-10-PCS; CPT 27125; principal; 2022-06-08 09:25)
DX: S72.012A Unspecified intracapsular fracture of left femur, initial encounter for closed fracture (principal); J18.9 Pneumonia, unspecified organism; N17.9 Acute kidney failure, unspecified; F05 Delirium due to known physiological condition; I10 Essential (primary) hypertension; R73.9 Hyperglycemia, unspecified; I25.2 Old myocardial infarction; L97.529 Non-pressure chronic ulcer of other part of left foot with unspecified severity; W19.XXXA Unspecified fall, initial encounter
CPT/HCPCS: 27236; 36415; 73552; 80048; 80053; 82550; 85027; 86850; 86900; 86901; 87635; 93005; 93306; 96365; 96367; 96375; 96376; 97110; 97162; 97530; 99223; 99284; 99285; 71045; 73502; 81003; 81015; 83735; 84484; 85025; 85610; 93010; 99233; 99239; J0131; J0690; J1100; J2270; J2370; J2405; J2704; J3010

== ENCOUNTER 2022-06-25 09:14 | Outpatient (CLI) | payer MEDICARE, SELFPAY ==
--- NOTE | 2022-06-25 08:45 | DI.RAD_ITS ---
Exam(s) XR HIP LT COMPLETE AP PELVIS EXAM: XR HIP LT COMPLETE AP PELVIS CLINICAL HISTORY: left hip fx f/u. TECHNIQUE: 2D digital imaging was performed. COMPARISON: CR XR HIP LT COMPLETE AP PELVIS from 06/08/2022 FINDINGS: Two views No fractures. Stable appearance of left hip prosthesis. No fracture or loosening evident. Right hi p unremarkable. IMPRESSION: DATA REPOSITORY: RADIATION DOSE DELIVERED:
== END 2022-06-25 09:15 | disposition home or self-care (01) ==
LOC: DIORS 09:15
PROVIDERS: PCP Nurse Practitioner Family; Referring Provider Nurse Practitioner Family; Visit Provider Student in an Organized Health Care Education/Training Program
DX: Z47.1 Aftercare following joint replacement surgery (principal); Z96.642 Presence of left artificial hip joint
CPT/HCPCS: 73502

== ENCOUNTER 2023-02-26 05:11 | Emergency (ER) | payer SELFPAY ==
[2023-02-26] VITALS (21 sets, daily range): BP systolic 129–185; BP diastolic 47–167; PULSE 55–125; RESP 11–24; TEMP 36.3; O2SAT 96–98
--- NOTE | 2023-02-26 05:00 | RT.EKG_ITS ---
APPROVED REPORT Exam: Resting ECG Reason for Exam: [facility] Patient Location: E HR:58 bpm ECG Measurements Heart Rate 58 AXIS AZ 125 P 56 QRSd 86 QRS 31 QT 418 T -31 QTc 411 Conclusion Sinus bradycardia...rate< 60
--- NOTE | 2023-02-26 05:15 | DI.CT_ITS ---
Exam(s) CT BRAIN NECK CTA EXAM: CT BRAIN NECK CTA CLINICAL HISTORY: altered mental status. TECHNIQUE: Imaging Protocol: Axial CT angiography was performed with multi-slice acquisition and mu lti-planar and/or 3D reconstructions. CONTRAST MATERIAL: Intravenous: Contrast contrast volume:85 mL COMPARISON: CT CT HEAD WO from 06/23/[address] ABDOMEN PELVIS W from 05/08/2020 FINDINGS: CT Head W/O and W: Ventricles and Extra axial spaces: Normal in size and morphology for the patient's age. Hemorrhage: None. Cerebral parenchyma: There is area of encephalomalacia involving the left occipital lobe. There are areas of decreased attenuation in the white matter consistent with small vessel ischemic disease. Midline shift: None. Brainstem/Cerebellum: Normal. Calvarium: Normal. Visualized Paranasal sinuses/Mastoids: Clear. There is opacification of the mastoid sinuses bilateral ly consistent with mastoiditis. Soft Tissues: Unremarkable. Enhancement: Unremarkable. CTA Neck W: Common Carotid: Right: No dissection, occlusion or significant stenosis. Left: No dissection, occlusion or significant stenosis. External Carotid: Right: No occlusion or significant stenosis. Left: No occlusion or significant stenosis. Internal Carotid: Right: No dissection, occlusion or significant stenosis. Atherosclerosis at the origin. Left: No dissection, occlusion or significant stenosis. Atherosclerosis at the origin. Vertebral Artery: Right: No dissection, occlusion or significant stenosis. Left: No dissection, occlusion or significant stenosis. Lung Apices: Normal. Bones: Within normal limits for the patient's age. Soft Tissues: Normal. Thyroid gland: Unremarkable. CTA Brain W: Internal Carotid Arteries: Atherosclerosis bilaterally. No aneurysm, occlusion or significant stenos is. Anterior Cerebral Arteries: Right: No aneurysm, occlusion or significant stenosis. Left: No aneurysm, occlusion or significant stenosis. Middle Cerebral Arteries: Right: No aneurysm, occlusion or significant stenosis. Left: No aneurysm, occlusion or significant stenosis. Posterior Cerebral Arteries: Right: No aneurysm, occlusion or significant stenosis. Left: No aneurysm, occlusion or significant stenosis. Vertebral Arteries: Right: No aneurysm, occlusion or significant stenosis. Left: No aneurysm, occlusion or significant stenosis. Basilar Artery: No aneurysm, occlusion or significant stenosis. IMPRESSION: 1. No large vessel occlusion or significant stenosis on the CT angiography of the head. 2. No acute intracranial process. 3. No occlusion or significant stenosis on the CT angiography of the neck. 4. Findings were discussed with the emergency department at 8:12 a.m. on 02/26/2023. RADIATION DOSE DELIVERED: 3,152.26mGy.cm Total DLP DATA REPOSITORY: All CT scans at this facility are submitted to the National Radiology Data Registry (NRDR) Dose Index Registry (DIR) with the [employer] (ACR). RADIATION OPTIMIZATION: All CT scans at this facility use at least one of these dose optimization te chniques: automated exposure control; mA and/or kV adjustment per patient size (includes targeted exa ms where dose is matched to clinical indication); or iterative reconstruction.
--- NOTE | 2023-02-26 05:25 | ED.GENADUL_ITS ---
Discharge Plan Disposition Patient Disposition: Home Condition: Good Discharge Details Clinical Impression: Fall Primary Care Provider: Jin Ellis ED Provider: [facility] Home Meds and New Rx's Prescriptions: No Action acetaminophen [Tylenol] 325 mg capsule 325 mg PO ONCE PRN ibuprofen [Advil] 200 mg tablet 200 mg PO Q6H PRN diclofenac sodium 3 % gel 1 applic topical BID PRN (Reason: pain) Qty: 100 3RF amlodipine 5 mg tablet 5 mg PO DAILY Qty: 90 3RF docusate sodium [Colace] 100 mg capsule 100 mg PO TID PRN PRN (Reason: constipation) Qty: 30 0RF Discharge Instructions Instructions: Fall Prevention for Older Adults (ED) Additional Instructions: Call your primary care doctor today to schedule an appointment before the end of the week to follow up on your visit today. Please proceed slowly and carefully when walking as falls at your age can cause severe injuries such as hip fractures. Return to the emergency department for new or worsening symptoms, including if you feel lightheaded or if you fall again. Referrals: Deana Maciel [Emergency Nurse] - Jin Ellis, POOLING OPERATOR [Primary Care Provider] - Discharge Data Discharge Date/Time-TO BE ENTERED AT DEPARTURE: 02/26/23 09:47 Medical Decision Making MDM: Summary: Data Review Analysis All the data on this patient was reviewed by me including laboratory and imaging studies as well as bedside studies performed by me Independent review of Studies Imaging Lab: Risk Stratification: Differential Diagnosis: 1. 2. 3. 4. 5. Consultants: Shared disposition: Impression: HPI General Date/Time Provider Initiated Documentation: 02/26/23 05:15 . HPI Narrative: Patient presents to the emergency department brought in by ambulance after she was found on the floor of her house with altered mental status. Last known well was 24 hours ago. Patient is able to speak but slowly and matters no obvious upper or lower extremity weakness Related Data Home Medications Medication Instructions Recorded Confirmed amlodipine 5 mg tablet 5 mg PO DAILY #90 tabs 05/31/22 02/25/23 docusate sodium 100 mg capsule 100 mg PO TID PRN PRN constipation 06/12/22 02/25/23 (Colace) #30 caps acetaminophen 325 mg capsule 325 mg PO ONCE PRN 06/25/22 02/25/23 (Tylenol) ibuprofen 200 mg tablet (Advil) 200 mg PO Q6H PRN 06/25/22 02/25/23 diclofenac sodium 3 % topical gel 1 applic topical BID PRN pain #100 07/03/22 02/25/23 grams Previous Rx's Medication Instructions Recorded amlodipine 5 mg tablet 5 mg PO DAILY #90 tabs 05/31/22 docusate sodium 100 mg capsule 100 mg PO TID PRN PRN constipation 06/12/22 (Colace) #30 caps diclofenac sodium 3 % topical gel 1 applic topical BID PRN pain #100 07/03/22 grams Allergies Allergy/AdvReac Type Severity Reaction Status Date / Time No Known Allergies Allergy Verified 02/25/23 17:50 General Stated Complaint: AMS/LOC TAMMY: 2 Review of Systems Unobtainable due to mental condition PFSH All Active Problems (Updated 02/26/23 @ 08:45 by [facility] MD) STANLEY (acute kidney injury) (Acute) Advance directive on file (Acute) Hydronephrosis, right (Acute) Right hip pain (Acute) Displaced fracture of left femoral neck (Acute 06/07/22) Postoperative delirium (Acute) Right otitis media (Acute) Fall (Acute) Medical History Choledocholithiasis Elevated troponin Hypertension NSTEMI (non-ST elevated myocardial infarction) Porcelain gallbladder Surgical History History of bilateral tubal ligation History of left hip hemiarthroplasty (06/07/22) Social History Smoking/Tobacco Use Status: Never Smoking risk assessment performed?: Yes Alcohol Intake: never Drug use: Never Substance use type: does not use Caregiver/Support person: No (Family checks in regularly) Household members: family Housing: house Number of Children: 6 Communication Needs: Hard of Hearing Do you need help understanding health information?: Always Pets and animals: No Sexually active: No Current gender identity: female What is your relationship status?: How often do you talk on the phone with friends or family?: three or more times per week How often do you get together with friends or relatives?: three or more times per week How often do you attend episcopal or scientology services?: decline to answer Do you belong to any clubs or organized social groups?: no Panel score (0-1 are the most socially isolated patients): 1 What type of physical activity do you participate in: walking Duration: 30-45 minutes/day Frequency: daily Dilia/Alevism: None Special dilia needs: No Agree to transfusion: No Seatbelt use: always Helmet use: No Drive intox or ride w/intox rental car ferry driver: No Do you feel safe at home: Yes Do you feel safe in your relationship?: Yes Victim of physical abuse: No Victim of emotional abuse: No Victim of sexual abuse: No Would you like helpful sources: No History History 6 Para 6 Hx # Term Pregnancies Multiple births Hx # Pregnancies Ectopic pregnancies AB induced Hx Number of Living Children 6 AB spontaneous Exam Narrative Exam Narrative: Exam; vitals signs as reported above normal Constitutional; In no acute distress, afebrile General: cooperative, healthy appearing, comfortable and no acute distress HEENT: Head: normal to inspection, no palpable skull fracture and normocephalic atraumatic Eyes: : appearance normal, both eyes and all related structures EOM intact bilaterally Pupils: PERRL : conjunctiva normal Direct ophthalmoscopy: normal light reflex, normal conjunctiva, normal visual acuity Ears: Normal TM, normal external canal Nose: normal no rhinorreha Neck no JVD, supple non tender Neck: normal visual inspection, full ROM and no lymphadenopathy Chest: normal inspection of the chest Respiratory : normal respiratory effort and able to speak in complete sentences no wheezing no rales Cardio Rate: regular rate, rhythm: regular rhythm normal heart sounds S1 and S2 no murmurs, gallops, or rubs GI : normal to inspection, normal bowel sounds, soft, non tender, non distended, no organomegaly Back/Spine/ no CVA tenderness Thoracic/Lumbar Spine: no tenderness or deformities Skin no rashes or lesions Neuro: patient alert disoriented to time and no meningeal signs, Cranial Nerves: CN's II-XI intact bilaterally, Cognition: normal cognition, Speech: speech normal, Gait: normal gait, Depp tendon reflexes normal 2+ muscle strength 5/5 bilaterally Extremities, no edema, full range of motion, normal strength : normal l: Course Vital Signs Vital signs: Vital Signs Temperature 36.3 C L 02/26/23 05:13 Pulse 66 02/26/23 05:13 Respiratory Rate 18 02/26/23 05:13 Blood Pressure 177/74 H 02/26/23 05:13 Pulse Oximetry 98 02/26/23 05:13 Temperature 36.3 C L 02/26/23 05:13 Temperature Source Oral 02/26/23 05:13 Pulse 66 02/26/23 05:13 Respiratory Rate 18 02/26/23 05:13 Blood Pressure 177/74 H 02/26/23 05:13 Pulse Oximetry 98 02/26/23 05:13 Oxygen Delivery Method Room Air 02/26/23 05:13 Oxygen Flow Rate 0 02/26/23 05:13 Sign Out Sign Out Data: Sign Out Comment: Patient presents to the emergency department with altered mental status. She will be signed out to the next provider for she is pending CT head and CT angiogram although she is out of the window for possible thrombolysis. Last updated by Ramin Anaya MD at 02/26/23 07:47 Vital Signs and Lab Results Vital Signs Most Recent Vital Signs in EMR: Most Recent Vital Signs Temp Pulse Resp BP Pulse Ox 36.3 C L 56 L 12 135/47 L 98 02/26/23 05:13 02/26/23 06:01 02/26/23 06:02 02/26/23 06:01 02/26/23 05:13 Lab Results 02/26/23 05:16 02/26/23 05:16 Blood Type / Crossmatch: No Data to Display Complete Blood Count: White Blood Count 7.52 10^3/uL (4.4-10.8) 02/26/23 05:16 Red Blood Count 3.85 10^6/uL (3.93-5.22) L 02/26/23 05:16 Hemoglobin 10.4 g/dL (11.2-15.7) L 02/26/23 05:16 Hematocrit 32.7 % (36.0-46.0) L 02/26/23 05:16 Platelet Count 373 10^3/uL (130-400) 02/26/23 05:16 Venous Blood Lactate 1.4 mmol/L (0.6-1.4) 02/26/23 05:16 Complete Metabolic Panel: Sodium 138 mmol/L (136-145) 02/26/23 05:16 Potassium 3.7 mmol/L (3.5-5.1) 02/26/23 05:16 Chloride 103 mmol/L (98-107) 02/26/23 05:16 Carbon Dioxide 23.1 mmol/L (21.0-32.0) 02/26/23 05:16 BUN 12 mg/dL (7-18) 02/26/23 05:16 Creatinine 1.0 mg/dL (0.55-1.02) 02/26/23 05:16 Est GFR (CKD-EPI 2020) 56.25 (mL/min/1.73m2) 02/26/23 05:16 Magnesium 1.8 mg/dL (1.8-2.4) 02/26/23 05:16 Calcium 9.0 mg/dL (8.5-10.1) 02/26/23 05:16 Albumin 3.3 g/dL (3.4-5.0) L 02/26/23 05:16 Glucose 158 mg/dL (74-106) H 02/26/23 05:16 Liver Function Panel: Alanine Aminotransferase (ALT/SGPT) 14 U/L (14-59) 02/26/23 05: 16 Aspartate Amino Transf (AST/SGOT) 17 U/L (15-37) 02/26/23 05:16 Coagulation Panel: No Data to Display Cardiac Panel: Troponin I < 50 ng/L (<or=60) 02/26/23 NT-Pro-B Natriuret Pep 1304 pg/mL (<300) H 02/26/23 Creatine Kinase 97 U/L (26-192) 02/26/23 Arterial Blood Gas: No Data to Display Venous Blood Gas: No Data to Display Pancreas Panel: No Data to Display Thyroid Panel: No Data to Display Infectious Disease: No Data to Display Blood Cultures: No Data to Display Toxicology Panel: Ethyl Alcohol Level < 3.0 mg/dL (<10) 02/26/23 05:16
[2023-02-26 05:29] LABS: Lactate 1.4 mmol/L (0.6-1.4)
[2023-02-26] MEDS: Normal Saline 1,000 ML 1000 ML IV (05:30)
[2023-02-26 05:33] LABS: Basophils % 0.8; Eosinophils % 0.7; HCT 32.7 % (36.0-46.0); HGB 10.4 g/dL (11.2-15.7); Lymphocytes % 21.1; MCHC 31.8 % (32.0-36.0); MCV 85 fL (80-95); MPV 10.3 fL (8.0-11.0); Monocytes % 6.6; Neutrophils % 70.4; Platelet Count 373 10^3/uL (130-400); RBC 3.85 10^6/uL (3.93-5.22); RDW 14.1 % (11.7-14.6); WBC 7.52 10^3/uL (4.4-10.8)
[2023-02-26 05:34] LABS: Abs Immature Grans 0.03 10^3/uL (0.0-0.06); Absolute Basophil Count 0.06 10^3/uL (0.0-0.2); Absolute Eosinophil Count 0.05 10^3/uL (0.0-0.7); Absolute Lymphocyte Count 1.59 10^3/uL (1.2-3.4); Absolute Neutrophil Count 5.29 10^3/uL (1.2-6.7); Immature Grans % 0.4
[2023-02-26 05:50] LABS: ETHANOL BLOOD < 3.0 mg/dL (<10)
[2023-02-26 05:53] LABS: ALT 14 U/L (14-59); AST 17 U/L (15-37); Albumin 3.3 g/dL (3.4-5.0); Alkaline Phosphatase 110 U/L (46-116); Anion Gap 11.9 mmol/L (3-11); BUN 12 mg/dL (7-18); Bilirubin, Total 0.3 mg/dL (0.2-1.0); CO2 23.1 mmol/L (21.0-32.0); Chloride 103 mmol/L (98-107); Estimated GFR 56.25 (mL/min/1.73m2); Glucose 158 mg/dL (74-106); Magnesium 1.8 mg/dL (1.8-2.4); Potassium 3.7 mmol/L (3.5-5.1); Sodium 138 mmol/L (136-145); Troponin I < 50 ng/L (<or=60)
[2023-02-26 05:59] LABS: NT-proBNP 1304 pg/mL (<300)
[2023-02-26 06:12] LABS: Bilirubin Negative (Negative); Blood Negative (Negative); Clarity Clear (Clear); Glucose Negative (Negative); Ketones Negative (Negative); Leukocyte Esterase Negative (Negative); Nitrite Negative (Negative); Specific Gravity 1.025 (1.005-1.025); Urobilinogen 0.2 mg/dL (Up to 0.2); pH 5.5 (5-8)
[2023-02-26] MEDS: Normal Saline - Diluent 50 ML VIAL IJ (06:20)
[2023-02-26] MEDS: Normal Saline Flush 10 ML SYR IVP (06:21)
[2023-02-26 07:23] LABS: Creatine Kinase 97 U/L (26-192)
--- NOTE | 2023-02-26 07:42 | DI.RAD_ITS ---
Exam(s) XR PORTABLE CHEST AP EXAM: XR PORTABLE CHEST AP CLINICAL HISTORY: fever TECHNIQUE: 2D digital imaging was performed of the chest. One image was obtained. An AP view was ob tained. COMPARISON: CR,XR XR CHEST 1V IN DI DEPT from 06/07/2022 FINDINGS: MEDIASTINUM: Normal. HEART: Normal. PULMONARY VASCULATURE: Normal. LUNGS: Clear. PLEURAL SPACE: No pleural effusion or pneumothorax. BONE:Within normal limits for the patient's age. OTHER FINDINGS:Normal. IMPRESSION: No acute pulmonary findings. DATA REPOSITORY: RADIATION DOSE DELIVERED:
--- NOTE | 2023-02-26 08:11 | ED.PROG_ITS ---
Date of service: 02/26/23 Time of Service: 08:00 Medical Decision Making This patient was signed out to me. Please see previous notes for H&P and initial eval. In brief, patient presents for altered mental status though is heard of hearing and difficult to assess. Initial report of being found down in the bathroom for an unknown period of time. EKG reassuring. Signed out pending CTA and CXR reads. Labs reviewed as below, CBC with mild anemia 10.4 (roughly baseline on [facility] record review, no acute bleeding on history or exam), CMP reassuring, ETOH and CK normal, initial troponin negative. BNP elevated at 1300, unknown baseline; patient does have a history of heart failure. No respiratory distress currently, no oxygen requirement, lungs CTAB. UA negative for infection. CTA negative for infarct or bleed, CXR negative for pneumonia. Further history from daughter at bedside; nephew heard patient in the bathroom this morning using her walker as usual; went to check on her a few minutes later and she had fallen. Patient does not think she passed out but this event was not witnessed. October [address] been a mechanical fall, patient was in a hurry to the bathroom. Repeat troponin negative. Repeat vital signs reassuring. Patient feels well and denies any symptoms or concerns currently. Ambulated in the ED with walker. Risks of hospitalization in this 88 year old female are not neglibile and her workup is very reassuring. Shared decision making with patient and daughter at bedside; with reassuring workup they would prefer to discharge home and followup with her PCP later this week which is reasonable. Discharged home; discharge instructions including return precautions were reviewed with patient and daughter who verbalized understanding. All questions were answered and they are in full agreement with the plan. Imaging Data Radiologic Study: Imaging: CT Scan Radiologist's impression: IMPRESSION: 1. No large vessel occlusion or significant stenosis on the CT angiography of the head.? 2. No acute intracranial process.? 3. No occlusion or significant stenosis on the CT angiography of the neck. 4. Findings were discussed with the emergency department at 8:12 a.m. on 02/26/2023. Radiologic Study #2: Imaging: X-Ray Radiologist's impression: IMPRESSION: No acute pulmonary findings. Lab Data Lab results reviewed: Yes I reviewed the patient's lab results. Labs: Laboratory Tests Range/Units 02/26/23 02/26/23 02/26/23 05:16 05:16 05:16 WBC (4.4-10.8) 10^3/uL 7.52 RBC (3.93-5.22) 10^6/uL 3.85 L Hgb (11.2-15.7) g/dL 10.4 L Hct (36.0-46.0) % 32.7 L MCV (80-95) fL 85 MCH (27.0-33.0) pg 27.0 MCHC (32.0-36.0) % 31.8 L RDW (11.7-14.6) % 14.1 Plt Count (130-400) 10^3/uL 373 MPV (8.0-11.0) fL 10.3 Immature Gran % 0.4 Neutrophils % 70.4 Lymphocytes % 21.1 Monocytes % 6.6 Eosinophils % 0.7 Basophils % 0.8 Nucleated RBC % (0.0-0.3) % 0.0 Absolute Neutrophils (1.2-6.7) 10^3/uL 5.29 Absolute Lymphocytes (1.2-3.4) 10^3/uL 1.59 Absolute Monocytes (0.1-0.8) 10^3/uL 0.50 Absolute Eosinophils (0.0-0.7) 10^3/uL 0.05 Absolute Basophils (0.0-0.2) 10^3/uL 0.06 VBG Lactate (0.6-1.4) mmol/L Sodium (136-145) mmol/L 138 Potassium (3.5-5.1) mmol/L 3.7 Chloride (98-107) mmol/L 103 Carbon Dioxide (21.0-32.0) mmol/L 23.1 Anion Gap (3-11) mmol/L 11.9 H BUN (7-18) mg/dL 12 Creatinine (0.55-1.02) mg/dL 1.0 Est GFR (CKD-EPI 2020) (mL/min/1.73m2) 56.25 Glucose (74-106) mg/dL 158 H Calcium (8.5-10.1) mg/dL 9.0 Magnesium (1.8-2.4) mg/dL 1.8 Total Bilirubin (0.2-1.0) mg/dL 0.3 AST (15-37) U/L 17 ALT (14-59) U/L 14 Alkaline Phosphatase (46-116) U/L 110 Creatine Kinase (26-192) U/L Troponin I (<or=60) ng/L < 50 NT-Pro-B Natriuret Pep (<300) pg/mL Total Protein (6.4-8.2) g/dL 7.0 Albumin (3.4-5.0) g/dL 3.3 L Urine Color (Yellow) Urine Clarity (Clear) Urine pH (5-8) Ur Specific [place] (1.005-1.025) Urine Protein (Negative) mg/dL Urine Ketones (Negative) mg/dL Urine Blood (Negative) Urine Nitrite (Negative) Urine Bilirubin (Negative) Urine Urobilinogen (Up to 0.2) mg/dL Ur Leukocyte Esterase (Negative) Urine Glucose (Negative) mg/dL Ethyl Alcohol (<10) mg/dL < 3.0 Range/Units 02/26/23 02/26/23 02/26/23 05:16 05:16 05:16 WBC (4.4-10.8) 10^3/uL RBC (3.93-5.22) 10^6/uL Hgb (11.2-15.7) g/dL Hct (36.0-46.0) % MCV (80-95) fL MCH (27.0-33.0) pg MCHC (32.0-36.0) % RDW (11.7-14.6) % Plt Count (130-400) 10^3/uL MPV (8.0-11.0) fL Immature Gran % Neutrophils % Lymphocytes % Monocytes % Eosinophils % Basophils % Nucleated RBC % (0.0-0.3) % Absolute Neutrophils (1.2-6.7) 10^3/uL Absolute Lymphocytes (1.2-3.4) 10^3/uL Absolute Monocytes (0.1-0.8) 10^3/uL Absolute Eosinophils (0.0-0.7) 10^3/uL Absolute Basophils (0.0-0.2) 10^3/uL VBG Lactate (0.6-1.4) mmol/L 1.4 Sodium (136-145) mmol/L Potassium (3.5-5.1) mmol/L Chloride (98-107) mmol/L Carbon Dioxide (21.0-32.0) mmol/L Anion Gap (3-11) mmol/L BUN (7-18) mg/dL Creatinine (0.55-1.02) mg/dL Est GFR (CKD-EPI 2020) (mL/min/1.73m2) Glucose (74-106) mg/dL Calcium (8.5-10.1) mg/dL Magnesium (1.8-2.4) mg/dL Total Bilirubin (0.2-1.0) mg/dL AST (15-37) U/L ALT (14-59) U/L Alkaline Phosphatase (46-116) U/L Creatine Kinase (26-192) U/L 97 Troponin I (<or=60) ng/L NT-Pro-B Natriuret Pep (<300) pg/mL 1304 H Total Protein (6.4-8.2) g/dL Albumin (3.4-5.0) g/dL Urine Color (Yellow) Urine Clarity (Clear) Urine pH (5-8) Ur Specific [place] (1.005-1.025) Urine Protein (Negative) mg/dL Urine Ketones (Negative) mg/dL Urine Blood (Negative) Urine Nitrite (Negative) Urine Bilirubin (Negative) Urine Urobilinogen (Up to 0.2) mg/dL Ur Leukocyte Esterase (Negative) Urine Glucose (Negative) mg/dL Ethyl Alcohol (<10) mg/dL Range/Units 02/26/23 02/26/23 05:56 08:08 WBC (4.4-10.8) 10^3/uL RBC (3.93-5.22) 10^6/uL Hgb (11.2-15.7) g/dL Hct (36.0-46.0) % MCV (80-95) fL MCH (27.0-33.0) pg MCHC (32.0-36.0) % RDW (11.7-14.6) % Plt Count (130-400) 10^3/uL MPV (8.0-11.0) fL Immature Gran % Neutrophils % Lymphocytes % Monocytes % Eosinophils % Basophils % Nucleated RBC % (0.0-0.3) % Absolute Neutrophils (1.2-6.7) 10^3/uL Absolute Lymphocytes (1.2-3.4) 10^3/uL Absolute Monocytes (0.1-0.8) 10^3/uL Absolute Eosinophils (0.0-0.7) 10^3/uL Absolute Basophils (0.0-0.2) 10^3/uL VBG Lactate (0.6-1.4) mmol/L Sodium (136-145) mmol/L Potassium (3.5-5.1) mmol/L Chloride (98-107) mmol/L Carbon Dioxide (21.0-32.0) mmol/L Anion Gap (3-11) mmol/L BUN (7-18) mg/dL Creatinine (0.55-1.02) mg/dL Est GFR (CKD-EPI 2020) (mL/min/1.73m2) Glucose (74-106) mg/dL Calcium (8.5-10.1) mg/dL Magnesium (1.8-2.4) mg/dL Total Bilirubin (0.2-1.0) mg/dL AST (15-37) U/L ALT (14-59) U/L Alkaline Phosphatase (46-116) U/L Creatine Kinase (26-192) U/L Troponin I (<or=60) ng/L < 50 NT-Pro-B Natriuret Pep (<300) pg/mL Total Protein (6.4-8.2) g/dL Albumin (3.4-5.0) g/dL Urine Color (Yellow) Yellow Urine Clarity (Clear) Clear Urine pH (5-8) 5.5 Ur Specific [place] (1.005-1.025) 1.025 Urine Protein (Negative) mg/dL Negative Urine Ketones (Negative) mg/dL Negative Urine Blood (Negative) Negative Urine Nitrite (Negative) Negative Urine Bilirubin (Negative) Negative Urine Urobilinogen (Up to 0.2) mg/dL 0.2 Ur Leukocyte Esterase (Negative) Negative Urine Glucose (Negative) mg/dL Negative Ethyl Alcohol (<10) mg/dL Sign Out Sign Out Data: Sign Out Comment: Patient presents to the emergency department with altered mental status. She will be signed out to the next provider for she is pending CT head and CT angiogram although she is out of the window for possible thrombolysis. Last updated by Ramin Anaya MD at 02/26/23 07:47 Discharge Plan Disposition Patient Disposition: Home Condition: Good Discharge Details Clinical Impression: Fall Primary Care Provider: Jin Ellis ED Provider: [facility] Home Meds and New Rx's Prescriptions: No Action acetaminophen [Tylenol] 325 mg capsule 325 mg PO ONCE PRN ibuprofen [Advil] 200 mg tablet 200 mg PO Q6H PRN diclofenac sodium 3 % gel 1 applic topical BID PRN (Reason: pain) Qty: 100 3RF amlodipine 5 mg tablet 5 mg PO DAILY Qty: 90 3RF docusate sodium [Colace] 100 mg capsule 100 mg PO TID PRN PRN (Reason: constipation) Qty: 30 0RF Discharge Instructions Instructions: Fall Prevention for Older Adults (ED) Additional Instructions: Call your primary care doctor today to schedule an appointment before the end of the week to follow up on your visit today. Please proceed slowly and carefully when walking as falls at your age can cause severe injuries such as hip fractures. Return to the emergency department for new or worsening symptoms, including if you feel lightheaded or if you fall again. Referrals: Deana Maciel [Emergency Nurse] - Jin Ellis, SET UP MECHANIC AUTOMATIC LINE [Primary Care Provider] -
[2023-02-26 08:34] LABS: Troponin I < 50 ng/L (<or=60)
--- NOTE | 2023-02-26 09:30 | NUR.NOTE ---
patient ambulated with walker - patient states she feels well has walker at home Nursing Note:
== END 2023-02-26 09:47 | disposition home or self-care (01) ==
PROVIDERS: Emergency Medicine Emergency Medical Services; Emergency Provider Student in an Organized Health Care Education/Training Program; PCP Nurse Practitioner Family
DX: R41.82 Altered mental status, unspecified (principal); W19.XXXA Unspecified fall, initial encounter; Y92.002 Bathroom of unspecified non-institutional (private) residence as the place of occurrence of the external cause; Z04.3 Encounter for examination and observation following other accident
CPT/HCPCS: 70496; 70498; 80053; 82550; 93005; 96360; 99285; 71045; 80320; 81003; 83605; 83735; 83880; 84484; 85025; 93010; 99283

== ENCOUNTER 2023-05-01 16:41 | Emergency (ER) | payer MEDICARE, SELFPAY ==
[2023-05-01 16:43] VITALS: BP 169/89; PULSE 85; RESP 22; TEMP 36.7; O2SAT 98
[2023-05-01 16:56] VITALS: BP 169/89; PULSE 85; RESP 22; TEMP 36.7; O2SAT 98
--- NOTE | 2023-05-01 16:59 | W.ED.GENAD ---
Discharge Plan Disposition Patient Disposition: Home Discharge Details Clinical Impression: Foreign body in ear Primary Care Provider: Jin Ellis ED Provider: Debora Scruggs Home Meds and New Rx's Prescriptions: Continued fluticasone propionate [Flonase Allergy Relief] 50 mcg/actuation spray,suspension 2 spray intranasal DAILY 30 Days Qty: 16 2RF Rx Instructions: administer into each nostril acetaminophen [Tylenol] 325 mg capsule 325 mg PO ONCE PRN ibuprofen [Advil] 200 mg tablet 200 mg PO Q6H PRN diclofenac sodium 3 % gel 1 applic topical BID PRN (Reason: pain) Qty: 100 3RF amlodipine 5 mg tablet 5 mg PO DAILY Qty: 90 3RF Discharge Instructions Additional Instructions: Do not use any foreign bodies in your ear such as Q-tips You may apply Debrox and warm water to your ear in the shower to help rid of wax Please return should you have new or worsening complaints Referrals: Jin Ellis, [employer]SULTANT [Primary Care Provider] - Discharge Data Discharge Date/Time-TO BE ENTERED AT DEPARTURE: 05/01/23 17:01 Medical Decision Making Alert 83-year-old female presenting with reported foreign body in her right ear, slightly hypertensive, encouraged to have this rechecked by her doctor On exam, right TM is obscured by a cotton tip of Q-tip, this was removed with forceps without incident The TM was revisualize and there is no evidence of perforation, no blood, and patient feels as though she is able to hear, she denies any additional complaints and is requesting discharge home Encouraged to have blood pressure rechecked by her primary care physician HPI General Date/Time Provider Initiated Documentation: 05/01/23 16:59. HPI Narrative: This 83-year-old female presents with report foreign body in her right ear. Was cleaning her ears with a Q-tip and thinks the tip of the Q-tip fell off. Denies any additional complaints. Denies any pain or bleeding. Denies dizziness or weakness. Related Data Home Medications Medication Instructions Recorded Confirmed amlodipine 5 mg tablet 5 mg PO DAILY #90 tabs 05/31/22 05/01/23 acetaminophen 325 mg capsule 325 mg PO ONCE PRN 06/25/22 05/01/23 (Tylenol) ibuprofen 200 mg tablet (Advil) 200 mg PO Q6H PRN 06/25/22 05/01/23 diclofenac sodium 3 % topical gel 1 applic topical BID PRN pain #100 07/03/22 05/01/23 grams fluticasone propionate 50 2 spray intranasal DAILY 30 days 04/08/23 05/01/23 mcg/actuation nasal #16 grams spray,suspension (Flonase Allergy Relief) Previous Rx's Medication Instructions Recorded amlodipine 5 mg tablet 5 mg PO DAILY #90 tabs 05/31/22 diclofenac sodium 3 % topical gel 1 applic topical BID PRN pain #100 07/03/22 grams fluticasone propionate 50 2 spray intranasal DAILY 30 days 04/08/23 mcg/actuation nasal #16 grams spray,suspension (Flonase Allergy Relief) Allergies Allergy/AdvReac Type Severity Reaction Status Date / Time No Known Allergies Allergy Verified 05/01/23 16:48 General Stated Complaint: EarProblem TAMMY: 4 PFSH All Active Problems (Updated 05/01/23 @ 17:01 by CHRISTIAN Teixeira) Foreign body in ear (Acute) Serous otitis media (Acute) Mixed hearing loss, bilateral (Acute) Right otitis media (Acute) Postoperative delirium (Acute) Displaced fracture of left femoral neck (Acute 06/07/22) Right hip pain (Acute) Hydronephrosis, right (Acute) Advance directive on file (Acute) STANLEY (acute kidney injury) (Acute) Medical History Choledocholithiasis Elevated troponin Hypertension NSTEMI (non-ST elevated myocardial infarction) Porcelain gallbladder Surgical History History of bilateral tubal ligation History of left hip hemiarthroplasty (06/07/22) Social History Smoking/Tobacco Use Status: Never Smoking risk assessment performed?: Yes Alcohol Intake: never Drug use: Never Substance use type: does not use Caregiver/Support person: No (Family checks in regularly) Household members: family Housing: house Number of Children: 6 Communication Needs: Hard of Hearing Do you need help understanding health information?: Always Pets and animals: No Sexually active: No Current gender identity: female What is your relationship status?: How often do you talk on the phone with friends or family?: three or more times per week How often do you get together with friends or relatives?: three or more times per week How often do you attend synagogue or confucianist services?: decline to answer Do you belong to any clubs or organized social groups?: no Panel score (0-1 are the most socially isolated patients): 1 What type of physical activity do you participate in: walking Duration: 30-45 minutes/day Frequency: daily Dilia/Gnosticist: None Special dilia needs: No Agree to transfusion: No Seatbelt use: always Helmet use: No Drive intox or ride w/intox transport 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 History History 6 Para 6 Hx # Term Pregnancies Multiple births Hx # Pregnancies Ectopic pregnancies AB induced Hx Number of Living Children 6 AB spontaneous Course Vital Signs Vital signs: Vital Signs Temperature 36.7 C 05/01/23 16:43 Pulse 85 05/01/23 16:43 Respiratory Rate 22 05/01/23 16:43 Blood Pressure 169/89 H 05/01/23 16:43 Pulse Oximetry 98 05/01/23 16:43 Temperature 36.7 C 05/01/23 16:56 Temperature Source Oral 05/01/23 16:43 Pulse 85 05/01/23 16:56 Respiratory Rate 22 05/01/23 16:56 Respiratory Effort Normal, Non-Labored 05/01/23 16:50 Blood Pressure 169/89 H 05/01/23 16:56 Blood Pressure Position Sitting 05/01/23 16:43 Pulse Oximetry 98 05/01/23 16:56 Oxygen Delivery Method Room Air 05/01/23 16:43 Oxygen Flow Rate 0 05/01/23 16:43 Pain Level 0 05/01/23 16:43
== END 2023-05-01 17:01 | disposition home or self-care (01) ==
LOC: ER 17:03
PROVIDERS: Emergency Provider Physician Assistant; PCP Nurse Practitioner Family
DX: T16.1XXA Foreign body in right ear, initial encounter (principal); I25.2 Old myocardial infarction; I10 Essential (primary) hypertension; W44.F9XA Other object of natural or organic material, entering into or through a natural orifice, initial encounter; Y93.E8 Activity, other personal hygiene; Y92.018 Other place in single-family (private) house as the place of occurrence of the external cause
CPT/HCPCS: 99282

== ENCOUNTER 2023-07-30 08:59 | Emergency (ER) | payer MEDICARE, SELFPAY ==
[2023-07-30] VITALS (9 sets, daily range): BP systolic 102–129; BP diastolic 52–84; PULSE 55–88; RESP 11–27; TEMP 36.3; O2SAT 94
--- NOTE | 2023-07-30 08:45 | RT.EKG_ITS ---
APPROVED REPORT Exam: Resting ECG Reason for Exam: chest pain Patient Location: E HR:67 bpm ECG Measurements Heart Rate 67 AXIS NC 121 P 69 QRSd 114 QRS 22 QT 424 T -28 QTc 449 Conclusion Sinus rhythm...normal P axis, V-rate 60- 99 Ventricular trigeminy...trigeminy string>6 w/ V complexes Repol abnrm suggests ischemia, diffuse leads...ST-T neg, ant/lat/inf
--- NOTE | 2023-07-30 09:00 | DI.RAD_ITS ---
Exam(s) XR PORTABLE CHEST AP EXAM: XR PORTABLE CHEST AP CLINICAL HISTORY: chest pain. TECHNIQUE: 2D digital imaging was performed. COMPARISON: CR XR PORTABLE CHEST AP from 02/26/2023 FINDINGS: Single AP portable view. Heart size is upper normal. The mediastinum is not widened. Increased pulmonary venous hypertension pattern with interstitial pulmonary edema. Also some mild in filtrate in the lateral right lung base. No obvious pleural effusions. Calcific rotator cuff tendinitis left shoulder incidentally noted. Scoliosis noted IMPRESSION: Probable interstitial pulmonary edema. No obvious pleural effusions. Recommend nonportable PA and l ateral views when clinically possible. DATA REPOSITORY: RADIATION DOSE DELIVERED:
--- NOTE | 2023-07-30 09:11 | W.ED.GENAD ---
HPI General Mode of arrival: EMS. Date/Time Provider Initiated Documentation: 07/30/23 09:07. Limitations to Documentation: no limitations. Information obtained by: patient and EMS. History of Present Illness 83 year old F presents to the emergency department with the chief complaint of chest pain, described as moderate, Patient started experiencing this hour(s) (2) and it has been constant. No relieving factors improve symptom(s), No exacerbating factors reported . Patient notes no other symptoms.. Patient did receive the following treatments prior to arrival, none Related Data Home Medications Medication Instructions Recorded Confirmed acetaminophen 325 mg capsule 325 mg PO ONCE PRN 06/25/22 07/30/23 (Tylenol) ibuprofen 200 mg tablet (Advil) 200 mg PO Q6H PRN 06/25/22 07/30/23 diclofenac sodium 3 % topical gel 1 applic topical BID PRN pain #100 07/03/22 07/30/23 grams fluticasone propionate 50 2 spray intranasal DAILY 30 days 04/08/23 07/30/23 mcg/actuation nasal #16 grams spray,suspension (Flonase Allergy Relief) amlodipine 5 mg tablet 5 mg PO DAILY #90 tabs 06/09/23 07/30/23 Previous Rx's Medication Instructions Recorded diclofenac sodium 3 % topical gel 1 applic topical BID PRN pain #100 07/03/22 grams fluticasone propionate 50 2 spray intranasal DAILY 30 days 04/08/23 mcg/actuation nasal #16 grams spray,suspension (Flonase Allergy Relief) amlodipine 5 mg tablet 5 mg PO DAILY #90 tabs 06/09/23 Allergies Allergy/AdvReac Type Severity Reaction Status Date / Time No Known Allergies Allergy Verified 07/30/23 09:44 General TAMMY: 4 Review of Systems All systems reviewed & are unremarkable except as noted in HPI and below Constitutional Constitutional: Denies chills and Denies fever(s) Cardiovascular Cardiovascular: Denies dyspnea Respiratory Respiratory: Denies cough and Denies dyspnea Gastrointestinal Gastrointestinal: Denies abdominal pain, Denies nausea and Denies vomiting Exam Const General: no acute distress Orientation: alert HENMT Head: normal to inspection Ears: external ears normal General nose exam: external nose normal Mouth: moist mucous membranes Eyes General: appearance normal, both eyes and all related structures Neck Neck: normal visual inspection Resp Effort & Inspection: normal respiratory effort and able to speak in complete sentences Auscultation: clear to auscultation bilaterally Cardio Rate: regular rate Heart Sounds: no murmurs GI Palpation: soft and nontender Skin General skin exam: no rashes or lesions noted Neuro General: patient alert and patient oriented x3 Extrem General: normal to inspection Psych Mental Status: mental status grossly normal Medical Decision Making 83 yo female with hx of htn on amlodipine who comes in with cc of nausea and chest pain starting 1-2 hours ago. She apparently felt well yesterday and this morning she woke up and sat on her cough, felt weak and lowered herself to the ground and had nause and chest pain. EMS was called and noted a STEMI with elevations in avR and avL with reciprocal depressions. She is caox4 on arrival, states she still has substernal chest pressure after getting 1 sublingual nitro with ems and 324mg asa. She denies back pain or abdominal pain. she has no focal deficits, clear lungs, soft abodmen. Given ekg findings consistent with stemi will proceed with heparin, plavix and [place] [facility] [place], no contraindications to this based on her reported history. Patient has no tearing back pain and equal peripheral pulses bilaterally so doubt dissection Discussed with cut off operator score[place] [facility] [place] and case and agrees with lytics and also adding 300mg plavix and they accept to their facility for a cath, accepting provider is Dr. Yusuf. Pt still has pain, nitro drip ordered cxr with likely interstitial edema, will order a dose of iv lasix. Troponin over 200. Pt stable, feeling improved on nitro drip Differential Diagnosis Differential Diagnosis: stemi, acs, pericarditis Medical Records Medical records reviewed: Yes I reviewed the patient's medical records. Imaging Data Radiologic Study: Attestation: I personally reviewed and interpreted this imaging study as follows: Imaging: X-Ray Radiologist's impression: Exam(s) XR PORTABLE CHEST AP EXAM: XR PORTABLE CHEST AP CLINICAL HISTORY: chest pain. TECHNIQUE: 2D digital imaging was performed. COMPARISON: CR XR PORTABLE CHEST AP from 02/26/2023 FINDINGS: Single AP portable view. Heart size is upper normal. The mediastinum is not widened. Increased pulmonary venous hypertension pattern with interstitial pulmonary edema. Also some mild infiltrate in the lateral right lung base. No obvious pleural effusions. Calcific rotator cuff tendinitis left shoulder incidentally noted. Scoliosis noted IMPRESSION: Probable interstitial pulmonary edema. No obvious pleural effusions. Recommend nonportable PA and lateral views when clinically possible. Lab Data Lab results reviewed: Yes I reviewed the patient's lab results. ECG Data Attestation: I personally reviewed and interpreted this ECG (s) as follows: Prior ECG tracings: available for review Interpretation: sinus rate of 67, pr 121, st elevation in avr, avl, depressions v3-v6 and ii and iii Quality:SDOH Health Related Social Needs: No Data to Display Critical Care Time Critical Care Time Critical Care Time: Yes Total Critical Care Time: 45 (minutes) Attestation: time spent on frequent reassessments, hemodynamic monitoring and lab review in a patient with a STEMI requiring lytics and potential to deteriorate at any time PFSH All Active Problems (Updated 07/30/23 @ 10:03 by Gianfranco Mitchell MD) ST elevation (STEMI) myocardial infarction (Acute) Serous otitis media (Acute) Mixed hearing loss, bilateral (Acute) Right otitis media (Acute) Postoperative delirium (Acute) Displaced fracture of left femoral neck (Acute 06/07/22) Right hip pain (Acute) Hydronephrosis, right (Acute) Advance directive on file (Acute) STANLEY (acute kidney injury) (Acute) Medical History Choledocholithiasis Elevated troponin Hypertension NSTEMI (non-ST elevated myocardial infarction) Porcelain gallbladder Surgical History History of bilateral tubal ligation History of left hip hemiarthroplasty (06/07/22) Social History Smoking/Tobacco Use Status: Never Smoking risk assessment performed?: Yes Alcohol Intake: never Drug use: Never Substance use type: does not use Caregiver/Support person: No (Family checks in regularly) Household members: family Housing: house Number of Children: 6 Communication Needs: Hard of Hearing Do you need help understanding health information?: Always Pets and animals: No Sexually active: No Current gender identity: female What is your relationship status?: How often do you talk on the phone with friends or family?: three or more times per week How often do you get together with friends or relatives?: three or more times per week How often do you attend voodoo or judaism services?: decline to answer Do you belong to any clubs or organized social groups?: no Panel score (0-1 are the most socially isolated patients): 1 What type of physical activity do you participate in: walking Duration: 30-45 minutes/day Frequency: daily Dilia/Catholic: None Special dilia needs: No Agree to transfusion: No Seatbelt use: always Helmet use: No Drive intox or ride w/intox 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 History History 6 Para 6 Hx # Term Pregnancies Multiple births Hx # Pregnancies Ectopic pregnancies AB induced Hx Number of Living Children 6 AB spontaneous Discharge Plan Disposition Specific Acute Inpt Facility: [facility] Condition: Critical Discharge Details Chief Complaint: Chest Pain Clinical Impression: ST elevation (STEMI) myocardial infarction Primary Care Provider: Jin Ellis ED Provider: Gianfranco Mitchell [place] Meds and New Rx's Prescriptions: No Action fluticasone propionate [Flonase Allergy Relief] 50 mcg/actuation spray,suspension 2 spray intranasal DAILY 30 Days Qty: 16 2RF Rx Instructions: administer into each nostril acetaminophen [Tylenol] 325 mg capsule 325 mg PO ONCE PRN ibuprofen [Advil] 200 mg tablet 200 mg PO Q6H PRN diclofenac sodium 3 % gel 1 applic topical BID PRN (Reason: pain) Qty: 100 3RF amlodipine 5 mg tablet 5 mg PO DAILY Qty: 90 3RF POCUS Exam (ED) Limited Cardiac Exam DATE OF EXAM: 07/30/23 PROVIDER THAT PERFORMED THE STUDY: Gianfranco Mitchell REASON FOR EXAM: Chest pain VISUALIZED STRUCTURES: Left ventricle and Right ventricle VIEW OBTAINED: Parasternal long-axis PERTINENT FINDINGS/IMPRESSION: LV dysfunction; No pericardial effusion Exam complete
[2023-07-30] MEDS: fentaNYL 100 MCG/2 ML VIAL 25 MCG IVP (09:26)
[2023-07-30 09:31] LABS: Source Nasal/Nares
[2023-07-30] MEDS: Tenecteplase 50 MG KIT 30 MG IVP (09:42)
[2023-07-30] MEDS: Clopidogrel 300 MG TAB PO (09:42)
[2023-07-30 10:03] LABS: Abs Immature Grans 0.04 10^3/uL (0.0-0.06); Absolute Basophil Count 0.04 10^3/uL (0.0-0.2); Absolute Eosinophil Count 0.02 10^3/uL (0.0-0.7); Absolute Lymphocyte Count 0.98 10^3/uL (1.2-3.4); Absolute Monocyte Count 0.44 10^3/uL (0.1-0.8); Absolute Neutrophil Count 9.46 10^3/uL (1.2-6.7); Basophils % 0.4; Eosinophils % 0.2; HCT 38.6 % (36.0-46.0); HGB 12.7 g/dL (11.2-15.7); Immature Grans % 0.4; Lymphocytes % 8.9; MCH 27.1 pg (27.0-33.0); MCHC 32.9 % (32.0-36.0); MCV 82 fL (80-95); MPV 9.7 fL (8.0-11.0); Neutrophils % 86.1; Platelet Count 338 10^3/uL (130-400); RBC 4.69 10^6/uL (3.93-5.22); RDW 15.1 % (11.7-14.6); RDW-SD 45.5 fL; WBC 10.99 10^3/uL (4.4-10.8)
[2023-07-30] MEDS: nitroGLYcerin in D5W 50 MG/250 ML BTL IV (10:03)
[2023-07-30 10:06] LABS: COVID-19 PCR Negative (Negative)
[2023-07-30] MEDS: Heparin in 0.45% NaCl 25,000 UNIT/250 ML BAG 6.5 UNIT IV (10:06)
[2023-07-30] MEDS: Furosemide 20 MG/2 ML VIAL IVP (10:13)
[2023-07-30 10:16] LABS: PTT Activated 24.4 sec (23.6-32.8); Prothrombin Time 10.3 sec (9.1-11.1)
[2023-07-30 10:34] LABS: ALT 29 U/L (14-59); AST 42 U/L (15-37); Albumin 3.7 g/dL (3.4-5.0); Alkaline Phosphatase 116 U/L (46-116); Anion Gap 12.1 mmol/L (3-11); BUN 12 mg/dL (7-18); Bilirubin, Total 0.3 mg/dL (0.2-1.0); CO2 24.9 mmol/L (21.0-32.0); CREATININE 1.2 mg/dL (0.55-1.02); Calcium 9.6 mg/dL (8.5-10.1); Chloride 102 mmol/L (98-107); Estimated GFR 44.91 (mL/min/1.73m2); Glucose 241 mg/dL (74-106); Magnesium 2.2 mg/dL (1.8-2.4); NT-proBNP 797 pg/mL (<300); Potassium 3.7 mmol/L (3.5-5.1); Sodium 139 mmol/L (136-145); Total Protein 7.9 g/dL (6.4-8.2)
[2023-07-30 10:35] LABS: Troponin I 259 ng/L (< or =60)
== END 2023-07-30 10:34 ==
PROVIDERS: Emergency Provider Emergency Medicine; PCP Nurse Practitioner Family
DX: I21.4 Non-ST elevation (NSTEMI) myocardial infarction (principal); I10 Essential (primary) hypertension
CPT/HCPCS: 80053; 87635; 93005; 93308; 96374; 96375; 99285; 71045; 83735; 83880; 84484; 85025; 85610; 85730; 93010; J1644; J1941; J2305; J3010; J3101